=== PATIENT | male | born 1935 | race Caucasian/White ===

== ENCOUNTER → 2016-03-24 | Outpatient (CLI) | payer OTHER ==
[~2016-03-24] MED LIST: ACET-1256 PO; ASPEC81 PO; ATOR-24 PO; CHOL1TAB42 PO; CLC6 PO; CLOP1TAB15 PO; CRD200 PO; FLUT0.15 NAE; GLIM1TAB2 PO; ISOS20TA15 PO; LYR50 PO; PANT40TA PO; SPIR25TA PO; TPRSR25 PO
[2016-03-24 11:14] LABS: BLOOD UREA NITROGEN 22 mg/dl (7-18); BUN/CREATININE RATIO 10.2 (10-20); CALCIUM 9.1 mg/dl (8.5-10.1); CARBON DIOXIDE 30 mmol/L (21-32); CHLORIDE 108 mmol/L (98-107); GLUCOSE 103 mg/dl (70-99); POTASSIUM 4.5 mmol/L (3.5-5.1); SODIUM 145 mmol/L (136-145)
== END | disposition home or self-care (01) ==
LOC: C.LABBC 08:47
PROVIDERS: ATTEND Internal Medicine Geriatric Medicine
DX: R53.83 Other fatigue (principal)

== ENCOUNTER → 2016-04-02 | Outpatient (CLI) | payer OTHER ==
--- NOTE | 2016-04-02 10:54 | DIAGNOSTIC IMAGING REPORT ---
ULTRASOUND KIDNEYS AND BLADDER CLINICAL HISTORY: Chronic kidney disease. COMPARISON STUDY: Abdominal ultrasound dated 11/25/2006. TECHNIQUE: Real-time, grayscale, and color flow sonography of the kidneys and bladder is performed. Images are reviewed in the transverse and longitudinal planes. The examination is degraded by large body habitus. FINDINGS: Kidneys: The kidneys are atrophic and echogenic consistent with medical renal disease. The right kidney measures 11.0 x 5.2 x 4.9 cm and the left kidney measures 10.4 x 5.8 x 5.4 cm. There is no hydronephrosis. No shadowing renal calculi are identified. There are numerous bilateral renal cysts which measure up to 4.2 cm. There is no sonographic evidence of solid mass lesion. Trace perinephric fluid is identified bilaterally. Bladder: The bladder is partially decompressed and grossly unremarkable. A right ureteral jet was seen. IMPRESSION: 1. The kidneys are atrophic and echogenic consistent with medical renal disease. 2. There is no hydronephrosis. 3. The partially decompressed bladder is grossly normal in appearance. Electronically signed by: Lauri Tilley M.D. 04/02/2016 10:53 AM Dictated Date/Time: 04/02/2016 10:51 AM
[2016-04-02 13:14] LABS: URINE APPEARANCE CLEAR (CLEAR); URINE BILIRUBIN NEG (NEG); URINE COLOR YELLOW; URINE EPITHELIAL CELL AUTO >30 /lpf (0-5); URINE NITRITE NEG (NEG); URINE SPECIFIC GRAVITY 1.017 (1.000-1.030); UROBILINOGEN NEG (NEG); ZZUR CULT IF INDIC CLEAN CATCH NO
[2016-04-02 13:29] LABS: MANUAL MICROSCOPIC REQUIRED? NO; REVIEW REQ? NO
[2016-04-02 14:20] LABS: URINE PROTIEN/CREAT RATIO 0.1 (0-0.2); URINE TOTAL PROTEIN 19.1 mg/dl (0-11.9)
== END | disposition home or self-care (01) ==
LOC: C.ULTR 10:05
PROVIDERS: ATTEND Internal Medicine Nephrology
DX: N18.3 Chronic kidney disease, stage 3 (moderate) (principal)

== ENCOUNTER → 2016-04-12 | Outpatient (CLI) | payer OTHER ==
--- NOTE | 2016-04-14 22:52 | POLYSOMNOGRAPH REPORT ---
CLINICAL DATA: An 80-year-old male with a BMI of 31.47, referred by Dr. Sukhdev Quinn for evaluation of sleep apnea. He has a history of sleep apnea in the past, but has stopped using CPAP. He now has daytime somnolence late in the day. On the evening of 04/12/2016, home sleep apnea test was performed using a My[employer] type 3 monitor. RECORDING RESULTS: Total recording time was 10 hours. The patient's estimated sleep time and patient monitoring time was 7.9 hours. RESPIRATORY DATA: Severe sleep apnea was documented. The ADALI was 44.3. There were 96 obstructive, 201 mixed, and 2 central apneic episodes. There were 52 hypopneic episodes. The longest respiratory event recorded was 61 seconds. OXIMETRY DATA: Nocturnal hypoxemia was seen. Oxygen jerry was 79%. Mean saturation was 93%. Time below 89% was 34 minutes. HEART RATE DATA: Heart rates ranged from 47-67 beats per minute. SNORING DATA: Snoring was recorded throughout the night. IMPRESSION: Severe sleep apnea/hypopnea with an ADALI of 44.3 with nocturnal hypoxemia. RECOMMENDATIONS: The patient may benefit from a repeat sleep study with CPAP. [facility]
== END | disposition home or self-care (01) ==
LOC: C.NEUR 08:33
PROVIDERS: ATTEND Internal Medicine
DX: R40.0 Somnolence (principal); G47.36 Sleep related hypoventilation in conditions classified elsewhere

== ENCOUNTER → 2016-05-31 | Outpatient (CLI) | payer OTHER ==
[2016-05-31 12:47] LABS: ESTIMATED AVERAGE GLUCOSE 146 mg/dl; HA1C FLAG Normal (Normal)
[2016-05-31 13:57] LABS: BLOOD UREA NITROGEN 29 mg/dl (7-18); BUN/CREATININE RATIO 13.7 (10-20); CALCIUM 8.9 mg/dl (8.5-10.1); CARBON DIOXIDE 30 mmol/L (21-32); CHLORIDE 108 mmol/L (98-107); GLUCOSE 102 mg/dl (70-99); MAGNESIUM 2.4 mg/dl (1.8-2.4); PHOSPHORUS 3.1 mg/dl (2.5-4.9); POTASSIUM 4.6 mmol/L (3.5-5.1); SODIUM 144 mmol/L (136-145)
[2016-06-02 18:42] LABS: ALBUMIN 3.7 G/DL (3.8-4.8); GAMMA GLOBULIN 0.8 G/DL (0.8-1.7); TOTAL PROTEIN 6.4 G/DL (6.2-8.3)
== END | disposition home or self-care (01) ==
LOC: C.LABBC 09:21
PROVIDERS: ATTEND Internal Medicine Nephrology
DX: N18.3 Chronic kidney disease, stage 3 (moderate) (principal); I42.9 Cardiomyopathy, unspecified; I12.9 Hypertensive chronic kidney disease with stage 1 through stage 4 chronic kidney disease, or unspecified chronic kidney disease; E11.29 Type 2 diabetes mellitus with other diabetic kidney complication; E53.8 Deficiency of other specified B group vitamins

== ENCOUNTER → 2016-06-02 | Outpatient (CLI) | payer OTHER ==
--- NOTE | 2016-06-03 06:13 | PAP/PSG TECHNICIAN REPORT ---
[facility] Phone Operator Polysomnogram Report Study name: None Report date: 06/03/2016 Study date: 06/02/2016 Referring Physician: DEONNA CALVO M.D. Name: LISA REDDY Interpreting Physician: Jean Claude Burdick M.D. Date of : 1935 Phone Operator: John Dupont RPSGT. Sex: Male Age: 80 StudyType: PSG PAP Weight: 232 lbs Height: 80 years, Height 6' 0" BMI: 31.46 Medications: CLOPIDOGREL BISULFATE 75 MG, AMIODARONE HCL 200 MG, GLIMEPIRIDE 1 MG, LYRICA 50 MG, ATORVASTATIN CALCIUM 40 MG, PANTOPRAZOLE SODIUM 40 MG, ISOSORBIDE DINITRATE 20 MG, METOPROLOL SUCCINATE ER 25 MG, FLUTICASONE PROPIONATE 50 MCG/ACT, ASPIRIN 81 MG, SPIRONOLACTONE 25 MG Patient History PATIENT HAD A SLEEP STUDY AROUND 5 YEARS AGO AND WAS POSITIVE FOR AUDREY. HE WORE CPAP FOR A WHILE BUT RECENTLY QUIT WEARING IT. HE HAD A HOME SLEEP STUDY THAT SHOWED HE HAD SEVERE AUDREY. HE IS HERE TODAY FOR A CPAP TITRATION. ESS = 6 RM 7 Parameters Monitored NPSG: E1-M2, E2-M1, Fp1-M2, Fp2-M1, F3-M2, F4-M2, F4-M1, C3-M2, C4-M2, C4-M1, O1-M2, O2-M2, O2-M1, T3-M2, T4-M1, P3-M2, P4-M1, CHIN1, CHIN2, HR, EKG, Legs, PFLOW, SNOR, FLOW, CFLOW, Tidal Volume, THOR, ABDO, SpO2, PLTH, CPRESS, ETCO2 Wave, ETCO2, pH Sleep Architecture Sleep Stages Time at Lights Off 10:37:05 PM STAGES Time (min.) TST (%) Time at Lights On 5:43:05 AM Wake 141.0 -- Total Recording Time (TRT) 426.50 min. N1 14.5 5 Total Sleep Period (TSP) 408.5 min. N2 171.5 60 Total Sleep Time (TST) 285.0min. N3 27.5 10 Awake Time 141.5 min. REM 71.5 25 Wake after Sleep Onset 123.5 min. Sleep Efficiency (SE) 67 % Sleep Onset Latency (DAYA) 17.5 min. Number of Stage 1 Shifts None Awakenings 24 Stage Changes 75 Number of REM periods 5 REM 71.5 25 REM Latency 63.5 min. NREM 213.5 75 Body Position Analysis Supine Right Left Side Prone Vertical Total Sleep Time (min.) 290.2 0.0 122.0 122.04 0.0 0.0 Total Sleep Time (%) 57% 0% 43% 43 0% N/A% Total Sleep Time REM (min.) 40.0 0.0 31.5 None 0.0 0.0 Total Sleep Time NREM (min.) 123.0 0.0 90.5 None 0.0 0.0 Intermittent Wake (min.) 127.3 0.0 13.7 None 0.0 0.0 Total Sleep Period (%) 67% None None None None None Arousals Myoclonus (PLM) * Events Count Index Events Count Index Spontaneous 24 5 Events Awake (PLMW) 122 51.9 Respiratory 6 1.3 Events Asleep w/ Arousal (PLMA) 5 1.1 PLM 4 1 Events Asleep w/o Arousal (PLMS) 308 64.8 Snoring 14 3 Total Asleep 313 65.9 Total 47 10 Total 435 61 Respiratory Analysis * CA OA MA CH H RERA Total Count 21 12 2 0 76 1 111 Index 4.4 2.5 0.4 0 16.0 0 23.6 Mean Duration 20.5 27.3 29.0 0.00 20.9 19.3 21.6 Longest Duration 31.5 42.3 29.7 0.00 29.7 19.3 42.3 Respiratory Event Summary Total Supine ~Supine Right Left Prone REM NREM Apneas Count 35 30 5 N/A 5 N/A 0 35 Index 7.4 11 2 N/A 2.5 N/A 0 10 Hypopneas (4% Desat) Count 76 61 15 N/A 15 N/A 6 70 Index 16.0 22.5 7 N/A 7.4 N/A 5.0 19.7 Apneas & All Hypopneas Count 111 91 20 N/A 20 N/A 6 105 Index 23.4 34 10 N/A 10 N/A 5.0 29.5 Respiratory Events (Pellet Post Inspector+All Hyp+RERA) Count 111 92 20 N/A 20 N/A 6 105 Index 23.6 34 10 N/A 9.8 N/A 5.0 29.8 Respiratory Related Arousal Count 6 92 0 N/A 0 N/A 0 6 Index 1.3 2 0 N/A 0 N/A 0 2 Snoring Analysis Supine Right Left Prone REM NREM Total Snore duration 7.2 min Snores count 200 N/A 81 N/A 18 263 281 Snore mean duration 1.5 Sec Snores index 74 N/A 40 N/A 15.1 73.9 59.2 TST with snoring (%) 2.5% Desaturation Event Summary: Minimum %SpO2 Event Count Mean/Min/Max Duration(sec.) Desaturation Index % Time In Bed > 90 140 23.2 / 8.0 / 52.0 22.8 88.4 86 - 90 2 26.8 / 23.0 / 30.5 2.5 11.6 81 - 85 0 N/A 0.0 0.0 76 - 80 0 N/A 0.0 0.0 71 - 75 0 N/A 0.0 0.0 66 - 70 0 N/A 0.0 0.0 61 - 65 0 N/A 0.0 0.0 56 - 60 0 N/A 0.0 0.0 51 - 55 0 N/A 0.0 0.0 < 50 0 N/A 0.0 0.0 Total REM NREM Awake <50% 0.0 min. 0.0 min. 0.0 min. 0.0 min. 51 - 60% 0.0 min. 0.0 min. 0.0 min. 0.0 min. 61 - 70% 0.0 min. 0.0 min. 0.0 min. 0.0 min. 71 - 80% 0.0 min. 0.0 min. 0.0 min. 0.0 min. 81 - 90% 48.6 min. 13.9 min. 24.2 min. 10.5 min. 91 - 100% 368.7 min. 57.6 min. 189.3 min. 121.8 min. Average 93 93 94 93 Minimum SpO2 86 86 88 87 Desaturation Event Index 19.9 6.7 29.8 13.6 # Desat. Events below 89% 5 4 N/A 1 Time(%) with Saturation below 89% 1.0 0.9 0.1 0.1 Time(min.) with Saturation below 89% 4.2 3.6 0.3 0.3 Time (mins) REM (mins) NREM (mins) % of TST SpO2 Below 90% 27 6 N21 3.9 SpO2 Below 88% 3 0 0 0 Heart Rate Analysis Min (bpm) Max (bpm) Average (bpm) Awake 49 61 58 NREM 49 61 59 REM 53 60 60 Overall 49 61 59 Supplemental O2 Values Minimum O2 level: None Value Start Time End Time Phone Operator Comments Mr. Reddy slept in the right and supine positions. EKG appeared irregular at times. Leg movements noted. No bruxism noted. CPAP was initiated at +4 CMH2O and up-titrated to a level of +12 CMH2O. I switched to BIPAP due to central apnea events noted and high pressure. BIPAP was started at 12/8 and was up-titrated to 17/11 with a rate of 12 due to apneas and hypopneas. A rate of 12 was added around 4:19 am. A Resmed Mirage Quattro full face size large mask was used during titration Mr. Reddy awoke to use the restroom 1 time during the night. Mr. Reddy stated I did not sleep as well as I do when I am in my own bed. Final Pressure settings: 17/11 with a rate of 12. The final report will be interpreted and signed by a sleep physician. The completed physician report will then be placed in the patient medical record. Therapy Event: Therapy (cm H20) 4 5 6 7 9 10 11 Total Time at Pressure (min.) 76.2 32.9 65.0 9.9 13.2 9.1 8.8 TST at Pressure (min.) 37.7 32.9 57.0 9.9 13.2 9.1 8.8 # Periods 1 1 1 1 1 1 1 Sleep Onset (min.) 17.5 0.0 0.0 0.0 0.0 0.0 0.0 REM Onset (min.) N/A 4.8 0.0 N/A N/A N/A N/A Sleep Efficiency % 49 100 87 100 100 100 100 Wakefulness (%) 50.5 0.0 12.3 0.0 0.0 0.0 0.0 Wakefulness (min.) 38.5 0.0 8.0 0.0 0.0 0.0 0.0 NREM 1 (%) 3.3 0.0 3.8 0.0 0.0 0.0 0.0 NREM 1 (min.) 2.5 0.0 2.5 0.0 0.0 0.0 0.0 NREM 2 (%) 32.2 0.0 60.2 100.0 100.0 100.0 100.0 NREM 2 (min.) 24.5 0.0 39.1 9.9 13.2 9.1 8.8 NREM 3 (%) 14.0 14.7 18.5 0.0 0.0 0.0 0.0 NREM 3 (min.) 10.7 4.8 12.0 0.0 0.0 0.0 0.0 REM (%) 0.0 85.3 5.2 0.0 0.0 0.0 0.0 REM (min.) 0.0 28.1 3.4 0.0 0.0 0.0 0.0 # Arousals 7 1 8 5 0 1 1 Arousal Index 11.1 1.8 8.4 30.4 0.0 6.6 6.8 # Snore 33 15 51 37 23 10 4 Snore Index 52.6 27.3 53.7 224.8 104.6 66.1 27.3 AHI 22.3 9.1 7.4 66.8 68.2 66.1 68.3 AHI Supine 30.0 N/A 84.0 66.8 68.2 66.1 68.3 AHI Non-Supine 21.9 9.1 2.2 N/A N/A N/A N/A NREM AHI 22.3 0.0 7.8 66.8 68.2 66.1 68.3 REM AHI N/A 10.7 0.0 N/A N/A N/A N/A RDI 22.3 9.1 7.4 66.8 68.2 66.1 68.3 # Obstructive 0 0 2 3 0 0 2 # Central Ap 6 0 3 0 0 0 1 # Mixed 0 0 0 0 0 0 0 # Hypopneas 8 5 2 8 15 10 7 RERAS 0 0 0 0 0 0 0 Total Respiratory Events 14 5 7 11 15 10 10 Time Below SpO2 89.00% (min.) 0.2 1.5 0.2 0.0 0.0 0.0 0.0 Mean NREM SpO2 (%) 93 91 92 95 95 95 95 Mean REM SpO2 (%) N/A 92 93 N/A N/A N/A N/A Mean Sleep SpO2 (%) 93 92 92 95 95 95 95 Min NREM SpO2 (%) 88 89 88 89 91 90 91 Min REM SpO2 (%) N/A 86 92 N/A N/A N/A N/A Position Supine (min.) 2.0 0.0 3.6 9.9 13.2 9.1 8.8 Position Non-supine (min.) 35.7 32.9 53.4 0.0 0.0 0.0 0.0 LM Index Sleep 117.9 27.3 171.5 12.2 9.1 19.8 20.5 LM Index NREM 117.9 161.6 180.2 12.2 9.1 19.8 20.5 LM Index REM N/A 4.3 35.3 N/A N/A N/A N/A Mean Heart Rate (bpm) 60 60 60 59 59 59 59 Min Heart Rate (bpm) 59 60 57 55 56 57 57 Therapy (cm H20) 12 12/8 13/8 14/9 15/10 16/10 17/11 Total Time at Pressure (min.) 8.3 8.8 6.5 97.9 5.8 20.8 62.7 TST at Pressure (min.) 8.3 8.8 6.5 15.4 4.8 16.3 56.2 # Periods 1 1 1 1 1 1 1 Sleep Onset (min.) 0.0 0.0 0.0 0.0 0.0 0.0 0.0 REM Onset (min.) N/A N/A 1.8 0.0 N/A N/A 15.2 Sleep Efficiency % 100 100 100 15 82 78 89 Wakefulness (%) 0.0 0.0 0.0 84.2 17.2 21.7 10.4 Wakefulness (min.) 0.0 0.0 0.0 82.5 1.0 4.5 6.5 NREM 1 (%) 0.0 0.0 0.0 5.1 17.2 8.5 2.8 NREM 1 (min.) 0.0 0.0 0.0 5.0 1.0 1.8 1.7 NREM 2 (%) 100.0 100.0 27.6 2.2 65.7 69.9 43.8 NREM 2 (min.) 8.3 8.8 1.8 2.2 3.8 14.5 27.5 NREM 3 (%) 0.0 0.0 0.0 0.0 0.0 0.0 0.0 NREM 3 (min.) 0.0 0.0 0.0 0.0 0.0 0.0 0.0 REM (%) 0.0 0.0 72.4 8.4 0.0 0.0 43.0 REM (min.) 0.0 0.0 4.7 8.3 0.0 0.0 27.0 # Arousals 1 3 1 6 2 6 5 Arousal Index 7.2 20.3 9.2 23.3 24.8 22.1 5.3 # Snore 4 3 0 5 16 80 0 Snore Index 28.9 20.3 0.0 19.4 198.8 294.9 0.0 AHI 65.0 61.0 18.4 31.1 49.7 25.8 0.0 AHI Supine 65.0 61.0 18.4 31.1 49.7 25.8 0.0 AHI Non-Supine N/A N/A N/A N/A N/A N/A N/A NREM AHI 65.0 61.0 33.3 67.0 49.7 25.8 0.0 REM AHI N/A N/A 12.7 0.0 N/A N/A 0.0 RDI 65.0 61.0 18.4 31.1 49.7 29.5 0.0 # Obstructive 1 0 0 0 0 4 0 # Central Ap 6 1 0 4 0 0 0 # Mixed 1 0 0 0 0 1 0 # Hypopneas 1 8 2 4 4 2 0 RERAS 0 0 0 0 0 1 0 Total Respiratory Events 9 9 2 8 4 8 0 Time Below SpO2 89.00% (min.) 0.0 0.0 1.6 0.5 0.0 0.0 0.0 Mean NREM SpO2 (%) 95 94 95 94 97 96 95 Mean REM SpO2 (%) N/A N/A 90 90 N/A N/A 95 Mean Sleep SpO2 (%) 95 94 92 92 97 96 95 Min NREM SpO2 (%) 90 90 91 89 92 91 90 Min REM SpO2 (%) N/A N/A 86 87 N/A N/A 92 Position Supine (min.) 8.3 8.8 6.5 15.4 4.8 16.3 56.2 Position Non-supine (min.) 0.0 0.0 0.0 0.0 0.0 0.0 0.0 LM Index Sleep 7.2 13.6 18.4 19.4 37.3 55.3 24.5 LM Index NREM 7.2 13.6 0.0 33.5 37.3 55.3 24.6 LM Index REM N/A N/A 25.4 7.3 N/A N/A 24.4 Mean Heart Rate (bpm) 59 59 60 58 56 57 59 Min Heart Rate (bpm) 57 54 58 49 49 49 51
--- NOTE | 2016-06-03 12:55 | POLYSOMNOGRAPH REPORT ---
CLINICAL DATA: An 80-year-old male with BMI of 31.[address] Sukhdev Quinn for a CPAP titration study. He had sleep apnea diagnosed 5 years ago and wore CPAP for a while but then discontinued it. He had a home sleep apnea test done which showed he had severe sleep apnea and he is back for a titration study. His [place] Sleepiness Score is 6/24. SLEEP ARCHITECTURE: Total sleep period was 408.5 minutes. Total sleep time was 285 minutes divided between 213.5 minutes of non-REM sleep and 61.5 minutes of REM sleep. Sleep onset latency was 17.5 minutes. REM latency was 63.5 minutes. Sleep efficiency was reduced to 67%. Wake after sleep onset was 123.5 minutes. Sleep consisted of stage N1 5%, N2 60%, N3 10%, REM 25%. AROUSAL DATA: Forty-seven arousals were recorded for an index of 10 per hour. PLM DATA: Severe PLMD was noted. There were 313 limb movements during sleep noted for an index of 66 per hour with arousal index of 1 per hour. RESPIRATORY DATA: Moderate sleep apnea was documented. The AHI was 23.4. There were 21 central, 12 obstructive, and 2 mixed apneic episodes. The longest apneic episode was 42.3 seconds. There were 76 hypopneic episodes. The longest hypopneic episode was 29.7 seconds. OXIMETRY DATA: Mild nocturnal hypoxemia was seen. Oxygen jerry was 86%. Mean saturation was 93%. Time below 88% was 3 minutes. EKG: Heart rates ranged from 49-61 beats per minute. ENERGY TRADING ANALYST'S COMMENTS AND TREATMENT SUMMARY: The patient slept on the right and supine positions. CPAP was started with a ResMed Mirage Quattro full face size large mask. He was titrated up to 12 cm of water pressure and developed treatment onset central apneic episodes which required switch to BiPAP. Final BiPAP pressure setting was 17/11 with backup rate of 12 BPM. On this final pressure setting, the patient slept for 56 minutes with an AHI of 0. IMPRESSION: Severe complex sleep apnea with a baseline sleep study showing severe obstructive sleep apnea and the development of treatment onset central apneic episodes with initiation of CPAP. The patient did respond to BIPAP with a backup rate. However, often these patients will resolve their central apneic episodes with the use of auto CPAP. RECOMMENDATIONS: The patient could be started on BiPAP 21/01 with backup rate of 12. An alternative would be to try auto CPAP 5-20 cm water pressure with review of compliance and effectiveness data after 4-6 weeks. Clinical correlation is needed. MTDD
== END | disposition home or self-care (01) ==
LOC: C.NEUR 21:00
PROVIDERS: ATTEND Internal Medicine Geriatric Medicine
DX: G47.33 Obstructive sleep apnea (adult) (pediatric) (principal)

== ENCOUNTER → 2016-07-30 | Outpatient (CLI) | payer OTHER ==
[~2016-07-30] VITALS: Ht 182.9 cm; Wt 108.1 kg
[2016-07-30 14:24] VITALS: BP 99/58; PULSE 60; Ht 182.9 cm; Wt 108.1 kg
== END | disposition home or self-care (01) ==
LOC: C.NEUR 13:41
PROVIDERS: ATTEND Internal Medicine Pulmonary Disease
DX: G47.30 Sleep apnea, unspecified (principal)

== ENCOUNTER → 2016-09-06 | Outpatient (CLI) | payer OTHER ==
[2016-09-06 11:41] LABS: URINE APPEARANCE CLEAR (CLEAR); URINE BILIRUBIN NEG (NEG); URINE COLOR YELLOW; URINE EPITHELIAL CELL AUTO >30 /lpf (0-5); URINE NITRITE NEG (NEG); URINE SPECIFIC GRAVITY 1.019 (1.000-1.030); UROBILINOGEN NEG (NEG); ZZUR CULT IF INDIC CLEAN CATCH NO
[2016-09-06 11:43] LABS: BLOOD UREA NITROGEN 27 mg/dl (7-18); BUN/CREATININE RATIO 14.4 (10-20); CALCIUM 8.7 mg/dl (8.5-10.1); CARBON DIOXIDE 29 mmol/L (21-32); CHLORIDE 111 mmol/L (98-107); GLUCOSE 94 mg/dl (70-99); MAGNESIUM 2.3 mg/dl (1.8-2.4); POTASSIUM 4.5 mmol/L (3.5-5.1); SODIUM 145 mmol/L (136-145)
[2016-09-06 11:46] LABS: MANUAL MICROSCOPIC REQUIRED? NO; REVIEW REQ? NO
[2016-09-06 11:47] LABS: PHOSPHORUS 3.2 mg/dl (2.5-4.9)
[2016-09-06 13:53] LABS: URINE PROTIEN/CREAT RATIO 0.2 (0-0.2); URINE TOTAL PROTEIN 18.9 mg/dl (0-11.9)
[2016-09-09 15:58] LABS: ALBUMIN 3.8 G/DL (3.8-4.8); ALBUMIN % 28.43 %; ALPHA-2-GLOBULIN % 17.59 %; CREATININE UR 116 MG/DL (20-370); GAMMA GLOBULIN 0.9 G/DL (0.8-1.7); GAMMA GLOBULIN % 28.07 %; TOTAL PROTEIN 6.7 G/DL (6.2-8.3)
--- NOTE | 2016-09-14 06:45 | CODING QUERY MEDICAL NECESSITY ---
CQSUPPORTING DIAGNOSIS NEEDED A supporting diagnosis is required for the test/procedure performed on this patient in order for us to be reimbursed by the patient's insurance. Please provide a supporting diagnosis for the following test/procedure listed below next to the test name along with your signature. *If there is no additional diagnosis for this patient that would support the following test/procedure please document that below next to the test/procedure. Test(s)/Procedure(s) that require a supporting diagnosis: DOS 09/06/16 PROSTATE SPECIFIC TEST Provider Signature: Date: Thank you Amanda Solorzano [employer] Once completed, please kindly fax back to [phone] For questions please call [phone]
== END | disposition home or self-care (01) ==
LOC: C.LABBC 08:19
PROVIDERS: ATTEND Urology
DX: E11.29 Type 2 diabetes mellitus with other diabetic kidney complication (principal); N18.3 Chronic kidney disease, stage 3 (moderate); R79.9 Abnormal finding of blood chemistry, unspecified; D47.2 Monoclonal gammopathy; R39.9 Unspecified symptoms and signs involving the genitourinary system; C61 Malignant neoplasm of prostate

== ENCOUNTER → 2016-10-27 | Outpatient (CLI) | payer OTHER ==
[2016-10-27 13:25] LABS: BASO % 0.5 %; BASO ABS # 0.05 K/uL (0-0.2); COMPLETE YES; EOS % 2.5 %; HEMATOCRIT 49.1 % (42-52); IG% 0.3 %; LYMPH % 22.4 %; LYMPH ABS # 2.41 K/uL (1.2-3.4); MEAN CELL VOLUME 103.8 fL (80-100); MEAN CORPUSCULAR HGB CONC 31.8 g/dl (32-36); MEAN PLATELET VOLUME 11.1 fL (7.4-10.4); MONO % 9.5 %; NEUT % 64.8 %; PLATELET COUNT 180 K/uL (130-400); RED BLOOD COUNT 4.73 M/uL (4.7-6.1); WHITE BLOOD COUNT 10.78 K/uL (4.8-10.8)
[2016-10-27 13:51] LABS: BLOOD UREA NITROGEN 30 mg/dl (7-18); BUN/CREATININE RATIO 14.9 (10-20); CALCIUM 8.9 mg/dl (8.5-10.1); CARBON DIOXIDE 32 mmol/L (21-32); CHLORIDE 108 mmol/L (98-107); GLUCOSE 95 mg/dl (70-99); POTASSIUM 4.7 mmol/L (3.5-5.1); SODIUM 142 mmol/L (136-145)
[2016-10-27 13:52] LABS: MAGNESIUM 2.4 mg/dl (1.8-2.4); URIC ACID 6.6 mg/dl (2.6-7.2)
[2016-10-27 13:54] LABS: URINE APPEARANCE CLEAR (CLEAR); URINE BILIRUBIN NEG (NEG); URINE COLOR YELLOW; URINE NITRITE NEG (NEG); UROBILINOGEN NEG (NEG); ZZUR CULT IF INDIC CLEAN CATCH NO
[2016-10-27 13:57] LABS: ESTIMATED AVERAGE GLUCOSE 131 mg/dl; HA1C FLAG Normal (Normal)
[2016-10-27 14:02] LABS: URINE PROTIEN/CREAT RATIO 0.2 (0-0.2); URINE TOTAL PROTEIN 19.8 mg/dl (0-11.9)
[2016-10-27 14:03] LABS: CHOLESTEROL 131 mg/dl (0-200); CHOLESTEROL/HDL RATIO 2.9; HDL CHOLESTEROL 45 mg/dl; LDL CHOLESTEROL CALCULATED 65 mg/dl; PHOSPHORUS 3.2 mg/dl (2.5-4.9); TRIGLYCERIDES 107 mg/dl (0-150); VERY LOW DENSITY LIPOPROT CALC 21 mg/dl
[2016-10-27 14:04] LABS: MANUAL MICROSCOPIC REQUIRED? NO; REVIEW REQ? NO
== END | disposition home or self-care (01) ==
LOC: C.LABBC 10:01
PROVIDERS: ATTEND Internal Medicine Nephrology
DX: I12.9 Hypertensive chronic kidney disease with stage 1 through stage 4 chronic kidney disease, or unspecified chronic kidney disease (principal); N18.3 Chronic kidney disease, stage 3 (moderate); E78.5 Hyperlipidemia, unspecified; E11.22 Type 2 diabetes mellitus with diabetic chronic kidney disease; G47.30 Sleep apnea, unspecified; M10.9 Gout, unspecified; E53.8 Deficiency of other specified B group vitamins

== ENCOUNTER → 2017-01-20 | Outpatient (CLI) | payer OTHER ==
[2017-01-20 16:58] LABS: BASO % 0.5 %; BASO ABS # 0.05 K/uL (0-0.2); COMPLETE YES; EOS % 2.4 %; HEMATOCRIT 45.5 % (42-52); IG% 0.2 %; LYMPH % 21.4 %; LYMPH ABS # 2.23 K/uL (1.2-3.4); MEAN CELL VOLUME 100.9 fL (80-100); MEAN CORPUSCULAR HEMOGLOBIN 32.2 pg (25-34); MEAN CORPUSCULAR HGB CONC 31.9 g/dl (32-36); MEAN PLATELET VOLUME 11.5 fL (7.4-10.4); NEUT % 67.5 %; PLATELET COUNT 173 K/uL (130-400); RED BLOOD COUNT 4.51 M/uL (4.7-6.1); WHITE BLOOD COUNT 10.42 K/uL (4.8-10.8)
[2017-01-20 17:26] LABS: MANUAL MICROSCOPIC REQUIRED? YES; URINE APPEARANCE SL CLOUDY (CLEAR); URINE COLOR YELLOW; URINE NITRITE NEG (NEG); URINE PH 5.5 (4.5-7.5); UROBILINOGEN NEG (NEG)
[2017-01-20 17:37] LABS: REVIEW REQ? NO
[2017-01-20 17:39] LABS: URINE BILIRUBIN NEG (NEG)
[2017-01-20 17:42] LABS: URINE RBC 0-4 /hpf (0-4)
[2017-01-20 17:43] LABS: URINE BACTERIA 1+ (NEG); ZZUR CULT IF INDIC CLEAN CATCH YES
[2017-01-20 17:47] LABS: BLOOD UREA NITROGEN 28 mg/dl (7-18); BUN/CREATININE RATIO 13.3 (10-20); CALCIUM 8.7 mg/dl (8.5-10.1); CARBON DIOXIDE 28 mmol/L (21-32); CHLORIDE 104 mmol/L (98-107); CREATININE 2.14 mg/dl (0.60-1.40); GLUCOSE 135 mg/dl (70-99); MAGNESIUM 2.2 mg/dl (1.8-2.4); POTASSIUM 4.7 mmol/L (3.5-5.1); SODIUM 140 mmol/L (136-145)
[2017-01-20 17:48] LABS: PHOSPHORUS 2.8 mg/dl (2.5-4.9)
[2017-01-20 18:11] LABS: URINE PROTIEN/CREAT RATIO 0.1 (0-0.2)
== END | disposition home or self-care (01) ==
LOC: C.LABBC 13:35
PROVIDERS: ATTEND Internal Medicine Nephrology
DX: N18.4 Chronic kidney disease, stage 4 (severe) (principal); E55.9 Vitamin D deficiency, unspecified; D47.2 Monoclonal gammopathy

== ENCOUNTER → 2017-05-03 | Outpatient (CLI) | payer OTHER ==
[2017-05-03 11:02] LABS: ALBUMIN 3.5 gm/dl (3.4-5.0); BLOOD UREA NITROGEN 26 mg/dl (7-18); CALCIUM 8.9 mg/dl (8.5-10.1); CARBON DIOXIDE 33 mmol/L (21-32); CREATININE 1.98 mg/dl (0.60-1.40); GLUCOSE 100 mg/dl (70-99); POTASSIUM 4.1 mmol/L (3.5-5.1); SODIUM 143 mmol/L (136-145)
[2017-05-03 11:13] LABS: PHOSPHORUS 3.5 mg/dl (2.5-4.9)
[2017-05-03 13:01] LABS: HEMOGLOBIN A1C 6.4 % (4.5-5.6)
== END | disposition home or self-care (01) ==
LOC: C.LABBC 07:33
PROVIDERS: ATTEND Internal Medicine Geriatric Medicine
DX: N25.81 Secondary hyperparathyroidism of renal origin (principal); I48.0 Paroxysmal atrial fibrillation; E11.9 Type 2 diabetes mellitus without complications

== ENCOUNTER 2017-10-15 06:12 | Inpatient (IN) | payer OTHER ==
[~2017-10-15] VITALS: Ht 182.9 cm; Wt 103.5 kg
[2017-10-15] MEDS ORDERED: ASPI81TA28 PO (06:54)
[2017-10-15] MEDS ORDERED: AMIO200T4 PO (06:54)
[2017-10-15] MEDS ORDERED: CALC1CAP36 PO (06:56)
[2017-10-15] MEDS ORDERED: CYAN100020 PO (06:56)
[2017-10-15] MEDS ORDERED: ACET-1256 PO (06:58)
[2017-10-15] MEDS ORDERED: ALBU18002 PO (06:58)
[2017-10-15] MEDS ORDERED: CHOL200010 PO (06:59)
[2017-10-15] MEDS ORDERED: METO25TA3 PO (06:59)
[2017-10-15] MEDS ORDERED: POLY335019 PO (06:59)
[2017-10-15] MEDS ORDERED: FLUT0.15 (07:00)
--- NOTE | 2017-10-15 07:16 | EMERGENCY ROOM VISIT NOTE ---
History Report prepared by Nan: Joseph Peña Under the Supervision of: Dr. Anne-Marie Han M.D. First contact with patient: 06:38 Chief Complaint: FALL Stated Complaint: FALL History of Present Illness The patient is an 82 year old male who presents to the Emergency Room with complaints of constant back pain beginning at 1040PM last night. The patient states he was moving a chair to get into the cabinet to turn a light off. He reports he lost his balance and fell backwards. The patient notes he hit his back on the edge of the TV cabinet. He states he was able to get up, with difficulty, and go to sleep. The patient reports he went to sleep and woke up this morning. He notes he took a few Tylenol. The patient states he was not able to sit up in the bed and movement increases his discomfort, so he came to the ED. He reports he had to use the urinal at bedside to go to the restroom. The patient notes he is able to lie on his back. He states he lives in a house at [facility] with his . 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 He notes his AAA was an emergent surgery performed at [facility]. The patient states he takes Plavix daily. He denies trouble with urination, blood in urine, headache, hitting his head, loss of consciousness, nausea, vomiting, and diarrhea. Source of History: patient Onset: 1040PM last night Position: back (lower) Timing: constant Modifying Factors (Worsening): movement, other (sitting up) Associated Symptoms: No LOC, No headache, No nausea, No vomiting, No diarrhea, No urinary symptoms Review of Systems See HPI for pertinent positives & negatives. A total of 10 systems reviewed and were otherwise negative. Past Medical & Surgical Medical Problems: (1) Atrial fibrillation (2) CKD (chronic kidney disease) (3) Elevated troponin (4) Heart disease (5) Hypercholesterolemia (6) Hypertension (7) Lumbar burst fracture (8) Pacemaker (9) Prior CA and stroke (10) Prostate cancer (11) Ventricular tachyarrhythmia Surgical Problems: (1) History of abdominal aortic aneurysm repair Family History Hypertension Social History Smoking Status: Never Smoker Alcohol Use: occasionally Drug Use: none Marital Status: Housing Status: lives with significant other Occupation Status: retired Current/Historical Medications Scheduled Amiodarone Hcl (Cordarone), 200 MG PO DAILY Aspirin (Aspirin Ec), 81 MG PO DAILY Atorvastatin (Lipitor), 40 MG PO DAILY Calcitriol (Calcitriol), 0.25 MCG PO 3XWK Cholecalciferol (Vitamin D), 2,000 UNIT PO DAILY Clopidogrel (Plavix), 75 MG PO DAILY Cyanocobalamin (Vitamin B12), 1,000 MCG PO DAILY Glimepiride (Glimepiride), 0.5 MG PO QAM Metoprolol Succ (Toprol Xl) (Toprol-Xl), 25 MG PO DAILY Pantoprazole (Protonix), 40 MG PO QAM Pregabalin (Lyrica), 50 MG PO BID Scheduled PRN Acetaminophen (Tylenol), 2 TAB PO TID PRN for Pain or Fever Albuterol Sulfate (Proair Respiclick), 2 PUFFS PO QID PRN for Wheezing Colchicine (Colcrys), 0.6 MG PO BID PRN for gout Fluticasone Propionate (Nasal) (Flonase Allergy Relief), 2 SPRAYS NA DAILY PRN for Nasal Congestion Polyethylene Glycol 3350 (Miralax), 17 GM PO DAILY PRN for Constipation Allergies Coded Allergies: Penicillins (Unverified Allergy, Intermediate, HIVES, 10/15/17) Physical Exam Vital Signs Date Time Temp Pulse Resp B/P (MAP) Pulse Ox O2 Delivery O2 Flow Rate FiO2 10/15/17 10:01 60 20 146/98 95 Nasal Cannula 2.0 10/15/17 09:20 60 20 147/79 95 Nasal Cannula 2.0 10/15/17 08:43 93 Nasal Cannula 2.0 10/15/17 08:11 60 20 132/72 93 Nasal Cannula 2.0 10/15/17 07:36 94 Nasal Cannula 2.0 10/15/17 07:35 88 Room Air 10/15/17 07:30 60 20 146/67 93 Room Air 10/15/17 06:54 94 Room Air 10/15/17 06:24 60 10/15/17 06:18 36.7 60 18 152/70 93 Room Air Physical Exam Vital signs reviewed. General: Well-appearing 82-year-old male, in some discomfort. HEENT: No scleral icterus, PERRLA, neck supple. Atraumatic. Cardiovascular: Regular rate and rhythm, no extra sounds. Pulmonary: Clear to auscultation bilaterally, normal work of breathing. Abdomen: Soft, nontender, nondistended, positive bowel sounds. Musculoskeletal: Atraumatic, no significant deformity. Cervical, thoracic and lumbar spine are palpated. There is no tenderness to palpation of cervical or thoracic spine; however, there is tenderness to palpation over the mid/low lumbar spine. no step-off or deformity appreciated. Large abrasion/contusion to the mid thoracic back. Pain with any movement. Positive straight leg raise to the bilateral lower extremities. Some discomfort with pelvic rocking. Neurologic: Patient awake alert and oriented x 3, full strength in all 4 extremities. Skin: Warm, dry, no rash. No significant abrasions/laceration. Medical Decision & Procedures ER Provider Diagnostic Interpretation: Radiology results as stated below per my review and radiologist interpretation: CT SCAN OF THE THORACIC SPINE WITHOUT IV CONTRAST CLINICAL HISTORY: Trauma. Fall. Back pain. COMPARISON STUDY: Chest CT performed concurrently on 10/15/2017. TECHNIQUE: CT scan of the thoracic spine is performed from the lower cervical spine to the upper lumbar spine. Images are reviewed in the axial, sagittal, and coronal planes. IV contrast was not administered for this examination. A dose lowering technique was utilized adhering to the principles of ALARA. FINDINGS: The skeletal structures are osteopenic. There is no evidence of fracture or malalignment involving the thoracic spine. Vertebral body height and alignment are maintained. The transverse and spinous processes are intact. No lytic or blastic lesion is seen. Tiny anterior osteophytes are noted in the upper to midthoracic region. There is mild multilevel degenerative disc space narrowing. There is no evidence of large disc herniation or central canal stenosis by CT. The visualized posterior ribs appear intact. The paraspinous soft tissues are within normal limits. The heart is enlarged. There is a trace right pleural effusion. Diffuse intralobular septal thickening is noted. IMPRESSION: 1. There is no evidence of fracture or malalignment involving the thoracic spine. 2. Cardiomegaly with evidence of congestive failure. 3. Trace right pleural effusion. Dictated: 10/15/2017 8:25 AM Transcribed: 10/15/2017 8:36 AM Maude Electronically signed by: Lauri Tilley M.D. 10/15/2017 8:39 AM Dictated Date/Time: 10/15/2017 8:[address] SCAN OF THE LUMBAR SPINE WITHOUT IV CONTRAST CLINICAL HISTORY: Trauma. Fall. COMPARISON STUDY: Abdominal CT performed concurrently on 10/15/2017. TECHNIQUE: CT scan of the lumbar spine is performed from the lower thoracic spine to the sacrum. Images are reviewed in the axial, sagittal, and coronal planes. IV contrast was not administered for this examination. A dose lowering technique was utilized adhering to the principles of ALARA. FINDINGS: The skeletal structures are osteopenic. There is a burst type compression fracture involving the inferior endplate of the L3 vertebral body. There is only mild loss of height at this level. No retropulsed fragments are seen. Fracture involves the anterior and posterior cortex as well as the inferior endplate. Fracture does not extend into the posterior elements. Vertebral body height is otherwise maintained throughout the lumbar spine. Alignment is preserved. The transverse and spinous processes are intact. There is no evidence of spondylolysis. Tiny anterior osteophytes are noted throughout. The disc spaces are maintained. There is no evidence of large disc herniation or central canal stenosis involving the lumbar spine. The visualized sacrum and bony pelvis appear intact. No lytic or blastic lesion is seen. Mild paravertebral edema is seen at L3. The paraspinous soft tissues are normal in appearance. There is advanced atherosclerotic calcification of the abdominal aorta with evidence of previous graft repair. Nonspecific periaortic stranding is noted. There are numerous bilateral renal cysts. See report of abdominal CT performed concurrently for detailed intra-abdominal findings. IMPRESSION: 1. There is a burst type compression fracture of the L3 vertebral body as detailed above. No retropulsed fragments are identified. 2. No additional fracture is seen involving the lumbar spine. Dictated: 10/15/2017 8:29 AM Transcribed: 10/15/2017 8:47 AM SACHIN_[email or web address] Electronically signed by: Lauri Tilley M.D. 10/15/2017 8:49 AM Dictated Date/Time: 10/15/2017 8:[address] SCAN OF THE BRAIN WITHOUT IV CONTRAST CLINICAL HISTORY: Fall. COMPARISON STUDY: No priors. TECHNIQUE: Unenhanced axial CT scan of the brain is performed from the vertex to the skull base. A dose lowering technique was utilized adhering to the principles of ALARA. FINDINGS: Brain parenchyma: There is a 2.1 x 1.3 cm hyperdense extra-axial nodule along the left convexity. This demonstrates small calcifications and is typical in appearance for a small meningioma. There is no associated mass effect. Small chronic lacunar infarcts are noted in the caudate heads and basal ganglia. There are age-related involutional changes noting moderate patchy subcortical and periventricular microangiopathic change. There is no hemorrhage, mass effect, or evidence of acute territorial ischemia by CT criteria. Canales-white matter is preserved. No extra-axial fluid collection is seen. Ventricles, sulci, cisterns: Prominent secondary to involutional change. Intracranial vasculature: There is atherosclerotic calcification of the cavernous carotid and vertebral arteries. Calvarium: The skeletal structures are osteopenic. There is no depressed calvarial fracture. Sinuses and mastoids: Trace mucosal thickening is seen in the left maxillary antrum, the left frontal sinus, and the ethmoid sinuses. The remaining visualized paranasal sinuses are clear. The mastoid air cells are well pneumatized. Orbits: The bony orbits are grossly intact. There are bilateral ocular lens implants. IMPRESSION: 1. There is no hemorrhage, mass effect, or evidence of acute territorial ischemia by CT criteria. 2. A 2.1 cm extra-axial nodule along the left frontal convexity is typical in appearance for a meningioma. There is no associated mass effect. Electronically signed by: Lauri Tilley M.D. 10/15/2017 7:55 AM Dictated Date/Time: 10/15/2017 7:[address] SCAN OF THE CHEST, ABDOMEN, AND PELVIS WITHOUT IV CONTRAST CLINICAL HISTORY: Trauma. Fall. COMPARISON STUDY: Chest x-ray dated 12/29/2015. Renal ultrasound dated 04/02/2016. TECHNIQUE: CT scan of the chest, abdomen, and pelvis was performed from the thoracic inlet to the proximal femora. Images are reviewed in the axial, sagittal, and coronal planes. IV contrast was not administered. Note that the examination was performed and significantly suboptimal fashion without IV contrast given the history of trauma. A dose lowering technique was utilized adhering to the principles of ALARA. FINDINGS: CHEST: Thyroid: Imaged portions of the thyroid gland are normal in size and attenuation. Thoracic aorta: There is advanced atherosclerotic calcification of the thoracic aorta, which is normal in caliber and demonstrates standard 3-vessel arch anatomy. Heart: A cardiac AICD is present in the right chest wall. The heart is enlarged and without pericardial effusion. The coronary arteries are densely calcified. Lungs and pleural spaces: Evaluation of the lung parenchyma is degraded by motion artifact. There is diffuse intralobular septal thickening and mild diffuse peribronchial thickening. A trace right pleural effusion is identified. No airspace consolidation is seen typical for pneumonia and there is no pneumothorax. The trachea and central airways are clear. Mediastinum: There is no mediastinal hematoma or lymphadenopathy. Carlie: Normal assessed without IV contrast. Axillae: There is no axillary lymphadenopathy. Bony thorax: The skeletal structures are osteopenic. The bony thorax appears intact. There are chronic-appearing/healed bilateral anterior rib fractures. No lytic or blastic lesions are identified. ABDOMEN AND PELVIS: Liver: The unenhanced liver is normal in size, contour, and attenuation. There is no intrahepatic or ductal dilatation. Gallbladder: Unremarkable. Spleen: Normal in size and attenuation. Pancreas: The unenhanced pancreas is atrophic and grossly unremarkable. Adrenal glands: Unremarkable. Kidneys: The unenhanced kidneys are atrophic and without hydronephrosis. No renal calculi are identified. Numerous bilateral renal cysts measure up to 4.3 cm. A complex/hemorrhagic cyst arising from the interpolar right kidney measures 11 mm. Abdominal vasculature: There is moderate to advanced atherosclerotic calcification of the abdominal aorta with evidence of previous graft repair. The abdominal aorta is normal in caliber. Nonspecific periaortic stranding is identified. There is no periaortic/retroperitoneal hemorrhage. Bowel: There is moderate to advanced colonic diverticulosis without CT evidence of acute diverticulitis. Moderate colonic fecal retention is observed. No bowel obstruction is seen. The appendix is well-visualized and normal. Peritoneum: There is no intraperitoneal free air or abdominal ascites. Lymphadenopathy: None. Pelvic viscera: The bladder is normal as visualized. The prostate gland is atrophic and contains brachytherapy seeds. Skeletal structures: The skeletal structures are osteopenic. There is a mild burst type compression fracture of the L3 vertebral body. Fracture involves the anterior and posterior cortex, as well as the inferior endplate. No retropulsed fragments are identified. Mild paravertebral edema is seen at this level. No additional fracture is seen involving the lumbar spine or the bony pelvis. No lytic or blastic lesions are seen. IMPRESSION: 1. There is a burst type fracture of the L3 vertebral body. Fracture extends through the anterior and posterior cortex of the vertebral body and also involves the inferior endplate. No retropulsed fragments are identified. 2. No additional acute fracture is clearly identified. Bilateral anterior rib fractures are likely chronic. Correlate for point tenderness. 3. Cardiomegaly and AICD. There is diffuse intralobular septal thickening suggesting congestive failure. 4. There is a trace right pleural effusion. 5. No airspace consolidation or pneumothorax is seen. 6. There is no evidence of solid organ injury in the abdomen or pelvis on this unenhanced examination. 7. There is moderate to advanced atherosclerotic calcification of the abdominal aorta with evidence of previous graft repair. No aneurysm is seen. 8. There is mild nonspecific stranding identified around the abdominal aorta. This may be related to previous surgery. An inflammatory aortitis is considered less likely but could also have this appearance. Correlation within the prior outside imaging studies would be helpful for comparison purposes. No retroperitoneal hemorrhage or periaortic blood is seen. 9. Moderate to advanced colonic diverticulosis without CT evidence of acute diverticulitis. 10. Additional findings as above. Electronically signed by: Lauri Tilley M.D. 10/15/2017 8:24 AM Dictated Date/Time: 10/15/2017 8:[address] SCAN OF THE CERVICAL SPINE CLINICAL HISTORY: Fall. COMPARISON STUDY: No priors. TECHNIQUE: CT scan of the cervical spine is performed from the skull base to the upper thoracic spine. Images are reviewed in the axial, sagittal, and coronal planes. IV contrast was not administered for this examination. A dose lowering technique was utilized adhering to the principles of ALARA. CT DOSE: 4298.64 mGy.cm FINDINGS: Skeletal structures: The skeletal structures are osteopenic. There is no evidence of fracture or subluxation involving the cervical spine. Vertebral body height is maintained. There is minimal anterolisthesis at C3-C4 and C4-C5. Alignment is otherwise preserved. Anterior osteophytes are seen in the lower cervical spine. There is straightening of the cervical lordosis. The odontoid process and lateral masses are intact. The atlantoaxial articulation is preserved noting advanced productive degenerative change. The spinous processes appear intact. There is moderate to advanced multilevel cervical spondylosis. Uncovertebral and facet arthropathy contribute to neural foraminal stenosis at most levels. Intervertebral discs: Mild disc space narrowing is seen at C5-C6 and C6-C7. The remaining disc spaces are well maintained. Central canal: Posterior disc osteophyte complexes at C5-C6 and C6-C7 likely contribute to acquired compromise of the central canal. Soft tissues: The prevertebral and paraspinous soft tissues are within normal limits. There is advanced atherosclerotic calcification of the carotid bulbs. Pacemaker leads are noted at the right thoracic inlet. Calvarium: The visualized calvarium at the skull base appears intact. Brain parenchyma: Partially visualized brain parenchyma the skull base is within normal limits noting age-related involutional change. Sinuses and mastoids: The visualized paranasal sinuses are clear. The mastoid air cells are well pneumatized. Lung apices: Clear as visualized. IMPRESSION: 1. There is no evidence of fracture or subluxation involving the cervical spine. 2. Osteopenia and spondylotic change as above. Electronically signed by: Lauri Tilley M.D. 10/15/2017 8:00 AM Dictated Date/Time: 10/15/2017 7:56 AM Laboratory Results Test 10/15/17 07:25 Prothrombin Time 10.7 SECONDS (9.0-12.0) Prothromb Time International Ratio 1.0 (0.9-1.1) Activated Partial Thromboplast Time 25.4 SECONDS (21.0-31.0) Partial Thromboplastin Ratio 1.0 Total Bilirubin 0.6 mg/dl (0.2-1) Direct Bilirubin 0.2 mg/dl (0-0.2) Aspartate Amino Transf (AST/SGOT) 27 U/L (15-37) Alanine Aminotransferase (ALT/SGPT) 25 U/L (12-78) Alkaline Phosphatase 139 U/L (45-117) Total Protein 7.1 gm/dl (6.4-8.2) Albumin 3.4 gm/dl (3.4-5.0) Laboratory results per my review. Medications Administered Medications (Trade) Dose Ordered Sig/Caitie Route Start Time Stop Time Status Last Admin Dose Admin Fentanyl Citrate (Fentanyl Inj) 50 mcg NOW STAT IV 10/15/17 07:22 10/15/17 07:23 DC 10/15/17 07:30 50 MCG Ondansetron HCl (Zofran Inj) 4 mg NOW STAT IV 10/15/17 07:22 10/15/17 07:23 DC 10/15/17 07:29 4 MG Sodium Chloride 1,000 ml @ 80 mls/hr [id number] STAT IV 10/15/17 07:22 10/15/17 11:18 DC 10/15/17 07:29 80 MLS/HR Aspirin (Aspirin Chew) 324 mg NOW STAT PO 10/15/17 08:04 10/15/17 08:05 DC 10/15/17 08:11 324 MG ECG Per My Interpretation Indication: other (trauma) Rate (beats per minute): 60 Rhythm: other (atrially paced) Findings: RBBB, left axis deviation, other (previous inferior infarct) ED Course 0650: Past medical records reviewed. The patient was evaluated in room B09. A complete history and physical examination was performed. 0823: I discussed the patient's case with Dr. Peguero, Orthopedic Surgery. He suggests the patient be bed ridden on his back. 0827: I discussed the patient's case with Dr. Kat, [facility] Hospitalist. The patient will be evaluated for further management and care. 0846: Upon reevaluation, the patient is resting comfortably. I discussed laboratory and radiographic results with him. He verbalized agreement of the treatment plan. The patient will be evaluated for further management and care. Medical Decision Differential diagnoses include: Intracranial injury, cervical spine injury, intrathoracic injury, intra- abdominal injury, musculoskeletal injury. This patient was evaluated and appeared to be in no significant distress. IV access was obtained and laboratory work was drawn. The patient was placed on bus monitor be in an atrially paced rhythm. Patient's vital signs have remained stable. He was given IV fentanyl and Zofran for his discomforts. CT imaging reveals a burst fracture of L3. The remainder of the imaging studies are negative for acute traumatic findings. There are several old rib injuries identified. I did discuss the case with Dr. Peguero of orthopedic spine. He feels the patient is stable for bed rest and has requested hospitalization until a brace can be made for the patient. Patient and are made aware of the plan and agree. The hospitalist has been consulted for admission and further management. Medication Reconcilliation Current Medication List: was personally reviewed by me Blood Pressure Screening Patient's blood pressure: Elevated blood pressure Blood pressure disposition: Referred to PCP Consults Time Called: 817 Consulting Physician: Dr. Peguero, Orthopedic Surgery Returned Call: [phone] I discussed the patient's case with Dr. Peguero, Orthopedic Surgery. He suggests the patient be bed ridden on his back. Additional Consults: Time Called: 824 Consulted Physician: Dr. Kat [facility] Hospitalist Returned Call: [phone] Additional Comments: I discussed the patient's case with Dr. Kat [facility] Hospitalist. The patient will be evaluated for further management and care. Impression Primary Impression: Lumbar burst fracture Additional Impression: Fall Scribe Attestation The scribe's documentation has been prepared under my direction and personally reviewed by me in its entirety. I confirm that the note above accurately reflects all work, treatment, procedures, and medical decision making performed by me. Departure Information Dispostion Being Evaluated By Hospitalist Referrals No Doctor, Assigned (PCP) Patient Instructions My [facility] Problem Qualifiers Primary Impression: Lumbar burst fracture Encounter type: initial encounter Fracture type: closed Qualified Codes: S32.001A - Stable burst fracture of unspecified lumbar vertebra, initial encounter for closed fracture Additional Impression: Fall Encounter type: initial encounter Qualified Codes: W19.XXXA - Unspecified fall, initial encounter
[2017-10-15] MEDS ORDERED: SODIUM CHLORIDE 0.9% 1000ML 1,000 ML IV STA (07:22)
[2017-10-15] MEDS ORDERED: ONDANSETRON INJ 2 MG/ML 2 ML VIAL IV STA (07:22)
[2017-10-15] MEDS ORDERED: FENTANYL CITRATE INJ 50 MCG/1 ML 2 ML VIAL IV STA (07:22)
[2017-10-15 07:32] LABS: BASO % 0.2 %; BASO ABS # 0.03 K/uL (0-0.2); EOS % 2.1 %; EOS ABS # 0.26 K/uL (0-0.5); HEMATOCRIT 44.6 % (42-52); HEMOGLOBIN 14.9 g/dL (14.0-18.0); IG# 0.04 K/uL (0.00-0.02); LYMPH % 12.2 %; LYMPH ABS # 1.48 K/uL (1.2-3.4); MEAN CELL VOLUME 98.9 fL (80-100); MEAN CORPUSCULAR HGB CONC 33.4 g/dl (32-36); MEAN PLATELET VOLUME 10.5 fL (7.4-10.4); MONO % 9.7 %; MONO ABS # 1.18 K/uL (0.11-0.59); NEUT % 75.5 %; NEUT ABS # 9.13 K/uL (1.4-6.5); PLATELET COUNT 154 K/uL (130-400); RED CELL DISTRIBUTION WIDTH CV 15.1 % (11.5-14.5); RED CELL DISTRIBUTION WIDTH SD 54.4 fL (36.4-46.3); WHITE BLOOD COUNT 12.12 K/uL (4.8-10.8)
--- NOTE | 2017-10-15 07:57 | DIAGNOSTIC IMAGING REPORT ---
CT SCAN OF THE BRAIN WITHOUT IV CONTRAST CLINICAL HISTORY: Fall. COMPARISON STUDY: No priors. TECHNIQUE: Unenhanced axial CT scan of the brain is performed from the vertex to the skull base. A dose lowering technique was utilized adhering to the principles of ALARA. FINDINGS: Brain parenchyma: There is a 2.1 x 1.3 cm hyperdense extra-axial nodule along the left convexity. This demonstrates small calcifications and is typical in appearance for a small meningioma. There is no associated mass effect. Small chronic lacunar infarcts are noted in the caudate heads and basal ganglia. There are age-related involutional changes noting moderate patchy subcortical and periventricular microangiopathic change. There is no hemorrhage, mass effect, or evidence of acute territorial ischemia by CT criteria. Canales-white matter is preserved. No extra-axial fluid collection is seen. Ventricles, sulci, cisterns: Prominent secondary to involutional change. Intracranial vasculature: There is atherosclerotic calcification of the cavernous carotid and vertebral arteries. Calvarium: The skeletal structures are osteopenic. There is no depressed calvarial fracture. Sinuses and mastoids: Trace mucosal thickening is seen in the left maxillary antrum, the left frontal sinus, and the ethmoid sinuses. The remaining visualized paranasal sinuses are clear. The mastoid air cells are well pneumatized. Orbits: The bony orbits are grossly intact. There are bilateral ocular lens implants. IMPRESSION: 1. There is no hemorrhage, mass effect, or evidence of acute territorial ischemia by CT criteria. 2. A 2.1 cm extra-axial nodule along the left frontal convexity is typical in appearance for a meningioma. There is no associated mass effect. Electronically signed by: Lauri Tilley M.D. 10/15/2017 7:55 AM Dictated Date/Time: 10/15/2017 7:52 AM
[2017-10-15 07:59] LABS: ALBUMIN 3.4 gm/dl (3.4-5.0); CALCIUM 8.5 mg/dl (8.5-10.1); CREATININE 1.77 mg/dl (0.60-1.40); POTASSIUM 4.5 mmol/L (3.5-5.1); TOTAL PROTEIN 7.1 gm/dl (6.4-8.2)
--- NOTE | 2017-10-15 08:01 | DIAGNOSTIC IMAGING REPORT ---
CT SCAN OF THE CERVICAL SPINE CLINICAL HISTORY: Fall. COMPARISON STUDY: No priors. TECHNIQUE: CT scan of the cervical spine is performed from the skull base to the upper thoracic spine. Images are reviewed in the axial, sagittal, and coronal planes. IV contrast was not administered for this examination. A dose lowering technique was utilized adhering to the principles of ALARA. CT DOSE: 4298.64 mGy.cm FINDINGS: Skeletal structures: The skeletal structures are osteopenic. There is no evidence of fracture or subluxation involving the cervical spine. Vertebral body height is maintained. There is minimal anterolisthesis at C3-C4 and C4-C5. Alignment is otherwise preserved. Anterior osteophytes are seen in the lower cervical spine. There is straightening of the cervical lordosis. The odontoid process and lateral masses are intact. The atlantoaxial articulation is preserved noting advanced productive degenerative change. The spinous processes appear intact. There is moderate to advanced multilevel cervical spondylosis. Uncovertebral and facet arthropathy contribute to neural foraminal stenosis at most levels. Intervertebral discs: Mild disc space narrowing is seen at C5-C6 and C6-C7. The remaining disc spaces are well maintained. Central canal: Posterior disc osteophyte complexes at C5-C6 and C6-C7 likely contribute to acquired compromise of the central canal. Soft tissues: The prevertebral and paraspinous soft tissues are within normal limits. There is advanced atherosclerotic calcification of the carotid bulbs. Pacemaker leads are noted at the right thoracic inlet. Calvarium: The visualized calvarium at the skull base appears intact. Brain parenchyma: Partially visualized brain parenchyma the skull base is within normal limits noting age-related involutional change. Sinuses and mastoids: The visualized paranasal sinuses are clear. The mastoid air cells are well pneumatized. Lung apices: Clear as visualized. IMPRESSION: 1. There is no evidence of fracture or subluxation involving the cervical spine. 2. Osteopenia and spondylotic change as above. Electronically signed by: Lauri Tilley M.D. 10/15/2017 8:00 AM Dictated Date/Time: 10/15/2017 7:56 AM
[2017-10-15] MEDS ORDERED: ASPIRIN 81 MG CHEW PO STA (08:04)
--- NOTE | 2017-10-15 08:25 | DIAGNOSTIC IMAGING REPORT ---
CT SCAN OF THE CHEST, ABDOMEN, AND PELVIS WITHOUT IV CONTRAST CLINICAL HISTORY: Trauma. Fall. COMPARISON STUDY: Chest x-ray dated 12/29/2015. Renal ultrasound dated 04/02/2016. TECHNIQUE: CT scan of the chest, abdomen, and pelvis was performed from the thoracic inlet to the proximal femora. Images are reviewed in the axial, sagittal, and coronal planes. IV contrast was not administered. Note that the examination was performed and significantly suboptimal fashion without IV contrast given the history of trauma. A dose lowering technique was utilized adhering to the principles of ALARA. FINDINGS: CHEST: Thyroid: Imaged portions of the thyroid gland are normal in size and attenuation. Thoracic aorta: There is advanced atherosclerotic calcification of the thoracic aorta, which is normal in caliber and demonstrates standard 3-vessel arch anatomy. Heart: A cardiac AICD is present in the right chest wall. The heart is enlarged and without pericardial effusion. The coronary arteries are densely calcified. Lungs and pleural spaces: Evaluation of the lung parenchyma is degraded by motion artifact. There is diffuse intralobular septal thickening and mild diffuse peribronchial thickening. A trace right pleural effusion is identified. No airspace consolidation is seen typical for pneumonia and there is no pneumothorax. The trachea and central airways are clear. Mediastinum: There is no mediastinal hematoma or lymphadenopathy. Carlie: Normal assessed without IV contrast. Axillae: There is no axillary lymphadenopathy. Bony thorax: The skeletal structures are osteopenic. The bony thorax appears intact. There are chronic-appearing/healed bilateral anterior rib fractures. No lytic or blastic lesions are identified. ABDOMEN AND PELVIS: Liver: The unenhanced liver is normal in size, contour, and attenuation. There is no intrahepatic or ductal dilatation. Gallbladder: Unremarkable. Spleen: Normal in size and attenuation. Pancreas: The unenhanced pancreas is atrophic and grossly unremarkable. Adrenal glands: Unremarkable. Kidneys: The unenhanced kidneys are atrophic and without hydronephrosis. No renal calculi are identified. Numerous bilateral renal cysts measure up to 4.3 cm. A complex/hemorrhagic cyst arising from the interpolar right kidney measures 11 mm. Abdominal vasculature: There is moderate to advanced atherosclerotic calcification of the abdominal aorta with evidence of previous graft repair. The abdominal aorta is normal in caliber. Nonspecific periaortic stranding is identified. There is no periaortic/retroperitoneal hemorrhage. Bowel: There is moderate to advanced colonic diverticulosis without CT evidence of acute diverticulitis. Moderate colonic fecal retention is observed. No bowel obstruction is seen. The appendix is well-visualized and normal. Peritoneum: There is no intraperitoneal free air or abdominal ascites. Lymphadenopathy: None. Pelvic viscera: The bladder is normal as visualized. The prostate gland is atrophic and contains brachytherapy seeds. Skeletal structures: The skeletal structures are osteopenic. There is a mild burst type compression fracture of the L3 vertebral body. Fracture involves the anterior and posterior cortex, as well as the inferior endplate. No retropulsed fragments are identified. Mild paravertebral edema is seen at this level. No additional fracture is seen involving the lumbar spine or the bony pelvis. No lytic or blastic lesions are seen. IMPRESSION: 1. There is a burst type fracture of the L3 vertebral body. Fracture extends through the anterior and posterior cortex of the vertebral body and also involves the inferior endplate. No retropulsed fragments are identified. 2. No additional acute fracture is clearly identified. Bilateral anterior rib fractures are likely chronic. Correlate for point tenderness. 3. Cardiomegaly and AICD. There is diffuse intralobular septal thickening suggesting congestive failure. 4. There is a trace right pleural effusion. 5. No airspace consolidation or pneumothorax is seen. 6. There is no evidence of solid organ injury in the abdomen or pelvis on this unenhanced examination. 7. There is moderate to advanced atherosclerotic calcification of the abdominal aorta with evidence of previous graft repair. No aneurysm is seen. 8. There is mild nonspecific stranding identified around the abdominal aorta. This may be related to previous surgery. An inflammatory aortitis is considered less likely but could also have this appearance. Correlation within the prior outside imaging studies would be helpful for comparison purposes. No retroperitoneal hemorrhage or periaortic blood is seen. 9. Moderate to advanced colonic diverticulosis without CT evidence of acute diverticulitis. 10. Additional findings as above. Electronically signed by: Lauri Tilley M.D. 10/15/2017 8:24 AM Dictated Date/Time: 10/15/2017 8:01 AM
--- NOTE | 2017-10-15 08:37 | DIAGNOSTIC IMAGING REPORT ---
CT SCAN OF THE THORACIC SPINE WITHOUT IV CONTRAST CLINICAL HISTORY: Trauma. Fall. Back pain. COMPARISON STUDY: Chest CT performed concurrently on 10/15/2017. TECHNIQUE: CT scan of the thoracic spine is performed from the lower cervical spine to the upper lumbar spine. Images are reviewed in the axial, sagittal, and coronal planes. IV contrast was not administered for this examination. A dose lowering technique was utilized adhering to the principles of ALARA. FINDINGS: The skeletal structures are osteopenic. There is no evidence of fracture or malalignment involving the thoracic spine. Vertebral body height and alignment are maintained. The transverse and spinous processes are intact. No lytic or blastic lesion is seen. Tiny anterior osteophytes are noted in the upper to midthoracic region. There is mild multilevel degenerative disc space narrowing. There is no evidence of large disc herniation or central canal stenosis by CT. The visualized posterior ribs appear intact. The paraspinous soft tissues are within normal limits. The heart is enlarged. There is a trace right pleural effusion. Diffuse intralobular septal thickening is noted. IMPRESSION: 1. There is no evidence of fracture or malalignment involving the thoracic spine. 2. Cardiomegaly with evidence of congestive failure. 3. Trace right pleural effusion. Dictated: 10/15/2017 8:25 AM Transcribed: 10/15/2017 8:36 AM S[facility]_Roshan Electronically signed by: Lauri Tilley M.D. 10/15/2017 8:39 AM Dictated Date/Time: 10/15/2017 8:25 AM
[2017-10-15 08:43] VITALS: O2SAT 93; Ht 182.9 cm; Wt 103.5 kg
--- NOTE | 2017-10-15 08:47 | DIAGNOSTIC IMAGING REPORT ---
CT SCAN OF THE LUMBAR SPINE WITHOUT IV CONTRAST CLINICAL HISTORY: Trauma. Fall. COMPARISON STUDY: Abdominal CT performed concurrently on 10/15/2017. TECHNIQUE: CT scan of the lumbar spine is performed from the lower thoracic spine to the sacrum. Images are reviewed in the axial, sagittal, and coronal planes. IV contrast was not administered for this examination. A dose lowering technique was utilized adhering to the principles of ALARA. FINDINGS: The skeletal structures are osteopenic. There is a burst type compression fracture involving the inferior endplate of the L3 vertebral body. There is only mild loss of height at this level. No retropulsed fragments are seen. Fracture involves the anterior and posterior cortex as well as the inferior endplate. Fracture does not extend into the posterior elements. Vertebral body height is otherwise maintained throughout the lumbar spine. Alignment is preserved. The transverse and spinous processes are intact. There is no evidence of spondylolysis. Tiny anterior osteophytes are noted throughout. The disc spaces are maintained. There is no evidence of large disc herniation or central canal stenosis involving the lumbar spine. The visualized sacrum and bony pelvis appear intact. No lytic or blastic lesion is seen. Mild paravertebral edema is seen at L3. The paraspinous soft tissues are normal in appearance. There is advanced atherosclerotic calcification of the abdominal aorta with evidence of previous graft repair. Nonspecific periaortic stranding is noted. There are numerous bilateral renal cysts. See report of abdominal CT performed concurrently for detailed intra-abdominal findings. IMPRESSION: 1. There is a burst type compression fracture of the L3 vertebral body as detailed above. No retropulsed fragments are identified. 2. No additional fracture is seen involving the lumbar spine. Dictated: 10/15/2017 8:29 AM Transcribed: 10/15/2017 8:47 AM [facility]_Roshan Electronically signed by: Lauri Tilley M.D. 10/15/2017 8:49 AM Dictated Date/Time: 10/15/2017 8:29 AM
--- NOTE | 2017-10-15 09:19 | History and Physical ---
History & Physical Date & Time of Service: Oct 15, 2017 at 09:18 Chief Complaint: FALL Primary Care Physician: Sukhdev Quinn M.D. History of Present Illness Source: patient, family This patient is an 82-year-old male with a history of V. tach cardiac arrest, pacemaker in situ, CAD with ischemic cardiomyopathy, chronic combined systolic and diastolic CHF, PAF, aortic stenosis, CVA, CKD stage III, h/o AAA repair, DM 2, HTN, HL, prostate cancer, gout, peripheral neuropathy with frequent falls, seasonal allergies, GERD, AUDREY, and periodic limb movement disorder, who presents to the ER after sustaining a fall on his back last evening around 5. He reports lifting a chair and starting to walk backwards to move it and he lost his balance, falling backwards and landing his mid back on the ledge of a TV stand about 18 inches off the ground. His was able to help him up and he walked to go to bed. When he tried to get out of bed this morning he had severe pain. He took Tylenol and then his called the ambulance. He was CAT scan from head through pelvis and found to have an L3 burst fracture without compromise of the canal. He has no radicular symptoms. He denies pain anywhere else except in his lower back. He was also found to have an elevated troponin at 0.5, but denies chest pain or shortness of breath. His ECG showed possible pacemaker failure and with a widened QRS. Pacer interrogation was attempted in the ER and they were unable to complete this. He denies having any problems with his pacer/defibrillator since he was here in 2016 after it went off several times. He was mildly hypoxic in the ER and placed on supplemental O2. He denies headache, other joint pains, abdominal pain, constipation or diarrhea, no GI bleeding, no nausea or vomiting. He will be admitted for elevated troponin and intractable back pain with an L3 traumatic burst fracture. Past Medical/Surgical History PMH: Ventricular tachyarrhythmia Cardiac arrest Pacemaker in situ Elevated Troponin Coronary Artery Disease Ischemic cardiomyopathy Chronic systolic and diastolic CHF Paroxysmal atrial fibrillation History of CVA Chronic Kidney Disease Stage III Diabetes Mellitus type II Hypertension Hyperlipidemia History of prostate CA History of AAA repair Aortic Stenosis-moderate GERD Seasonal Allergies History of frequent falls peripheral neuropathy Vitamin D deficiency Gout AUDREY-supposed to be on BiPAP but declined PSH: History of abdominal aortic aneurysm repair Right knee arthroscopically Left distal index finger partial amputation-traumatic Pacemaker placement on the left and subsequent removal Pacemaker placement on the right Tonsillectomy Family History Hypertension Social History Smoking Status: Former Smoker (History of [id number] smoking) Alcohol Use: occasionally (1 drink per week) Drug Use: none Marital Status: Housing status: lives with significant other (In the independent portion at [facility]) Occupational Status: retired Immunizations History of Tetanus Vaccine?: Yes History of Pneumococcal: No History of Hepatitis B Vaccine: No Allergies Coded Allergies: Penicillins (Unverified Allergy, Intermediate, HIVES, 10/15/17) Home Medications Scheduled Amiodarone Hcl (Cordarone), 200 MG PO DAILY Aspirin (Aspirin Ec), 81 MG PO DAILY Atorvastatin (Lipitor), 40 MG PO DAILY Calcitriol (Calcitriol), 0.25 MCG PO 3XWK Cholecalciferol (Vitamin D), 2,000 UNIT PO DAILY Clopidogrel (Plavix), 75 MG PO DAILY Cyanocobalamin (Vitamin B12), 1,000 MCG PO DAILY Glimepiride (Glimepiride), 0.5 MG PO QAM Metoprolol Succ (Toprol Xl) (Toprol-Xl), 25 MG PO DAILY Pantoprazole (Protonix), 40 MG PO QAM Pregabalin (Lyrica), 50 MG PO BID Scheduled PRN Acetaminophen (Tylenol), 2 TAB PO TID PRN for Pain or Fever Albuterol Sulfate (Proair Respiclick), 2 PUFFS PO QID PRN for Wheezing Colchicine (Colcrys), 0.6 MG PO BID PRN for gout Fluticasone Propionate (Nasal) (Flonase Allergy Relief), 2 SPRAYS NA DAILY PRN for Nasal Congestion Polyethylene Glycol 3350 (Miralax), 17 GM PO DAILY PRN for Constipation Review of Systems Constitutional: No fever, No chills, No sweats Eyes: No problem reported ENT: No problem reported Respiratory: No problem reported Cardiovascular: No problem reported Abdomen: No problem reported Musculoskeletal: + joint pain (As per HPI) Genitourinary - Male: No problem reported Neurologic: + numbness/tingling (Chronic peripheral neuropathy), + balance problems (With frequent falls) Psychiatric: No problem reported Endocrine: No problem reported Hematologic / Lymphatic: No problem reported Integumentary: No problem reported Allergic / Immunologic: No problem reported Physical Exam Vital Signs Date Time Temp Pulse Resp B/P (MAP) Pulse Ox O2 Delivery O2 Flow Rate FiO2 10/15/17 08:43 93 Nasal Cannula 2.0 10/15/17 08:11 60 20 132/72 93 Nasal Cannula 2.0 10/15/17 07:36 94 Nasal Cannula 2.0 10/15/17 07:35 88 Room Air 10/15/17 07:30 60 20 146/67 93 Room Air 10/15/17 06:54 94 Room Air 10/15/17 06:24 60 10/15/17 06:18 36.7 60 18 152/70 93 Room Air General Appearance: WD/WN, no apparent distress Head: normocephalic, atraumatic Eyes: normal inspection, PERRL, EOMI, sclerae normal ENT: hearing grossly normal, pharynx normal Neck: supple, no adenopathy, no JVD, trachea midline Respiratory/Chest: lungs clear, normal breath sounds, no respiratory distress, no accessory muscle use Cardiovascular: regular rate, rhythm, no murmur, + pertinent finding (1+ pedal pulses bilaterally, trace pitting edema in the legs bilaterally) Abdomen/GI: normal bowel sounds, non tender, soft, no organomegaly, + pertinent finding (Midline incisional scar well-healed) Back: + pertinent finding (Positive large abrasion of skin across the mid back with no active bleeding; positive tenderness palpation in the lumbar spine without step-off) Extremities/Musculoskelatal: no calf tenderness, normal range of motion, non- tender (Except for back as above) Neurologic/Psych: no motor/sensory deficits, alert, normal mood/affect, oriented x 3 Skin: normal color, warm/dry, no rash (Except abrasion on back as above) Lymphatic: no adenopathy Diagnostics Laboratory Results Results Past 24 Hours Test 10/15/17 07:25 Range/Units White Blood Count 12.12 4.8-10.8 K/uL Red Blood Count 4.51 4.7-6.1 M/uL Hemoglobin 14.9 14.0-18.0 g/dL Hematocrit 44.6 42-52 % Mean Corpuscular Volume 98.9 80-100 fL Mean Corpuscular Hemoglobin 33.0 25-34 pg Mean Corpuscular Hemoglobin Concent 33.4 32-36 g/dl Platelet Count 154 130-400 K/uL Mean Platelet Volume 10.5 7.4-10.4 fL Neutrophils (%) (Auto) 75.5 % Lymphocytes (%) (Auto) 12.2 % Monocytes (%) (Auto) 9.7 % Eosinophils (%) (Auto) 2.1 % Basophils (%) (Auto) 0.2 % Neutrophils # (Auto) 9.13 1.4-6.5 K/uL Lymphocytes # (Auto) 1.48 1.2-3.4 K/uL Monocytes # (Auto) 1.18 0.11-0.59 K/uL Eosinophils # (Auto) 0.26 0-0.5 K/uL Basophils # (Auto) 0.03 0-0.2 K/uL RDW Standard Deviation 54.4 36.4-46.3 fL RDW Coefficient of Variation 15.1 11.5-14.5 % Immature Granulocyte % (Auto) 0.3 % Immature Granulocyte # (Auto) 0.04 0.00-0.02 K/uL Sodium Level 141 136-145 mmol/L Potassium Level 4.5 3.5-5.1 mmol/L Chloride Level 108 98-107 mmol/L Carbon Dioxide Level 27 21-32 mmol/L Anion Gap 6.0 3-11 mmol/L Blood Urea Nitrogen 28 7-18 mg/dl Creatinine 1.77 0.60-1.40 mg/dl Est Creatinine Clear Calc Drug Dose 40.2 ml/min Estimated GFR () 40.3 Estimated GFR (Non- 34.7 BUN/Creatinine Ratio 15.9 10-20 Random Glucose 140 70-99 mg/dl Calcium Level 8.5 8.5-10.1 mg/dl Magnesium Level 2.3 1.8-2.4 mg/dl Total Bilirubin 0.6 0.2-1 mg/dl Direct Bilirubin 0.2 0-0.2 mg/dl Aspartate Amino Transf (AST/SGOT) 27 15-37 U/L Alanine Aminotransferase (ALT/SGPT) 25 12-78 U/L Alkaline Phosphatase 139 45-117 U/L Troponin I 0.582 0-0.045 ng/ml Total Protein 7.1 6.4-8.2 gm/dl Albumin 3.4 3.4-5.0 gm/dl Diagnostic Radiology Thoracic spine CT: IMPRESSION: 1. There is no evidence of fracture or malalignment involving the thoracic spine. 2. Cardiomegaly with evidence of congestive failure. 3. Trace right pleural effusion. Cervical spine CT: 1. There is no evidence of fracture or subluxation involving the cervical spine. 2. Osteopenia and spondylotic change as above. Lumbar spine CT: 1. There is a burst type compression fracture of the L3 vertebral body as detailed above. No retropulsed fragments are identified. 2. No additional fracture is seen involving the lumbar spine. CT chest/abdomen/pelvis: 1. There is a burst type fracture of the L3 vertebral body. Fracture extends through the anterior and posterior cortex of the vertebral body and also involves the inferior endplate. No retropulsed fragments are identified. 2. No additional acute fracture is clearly identified. Bilateral anterior rib fractures are likely chronic. Correlate for point tenderness. 3. Cardiomegaly and AICD. There is diffuse intralobular septal thickening suggesting congestive failure. 4. There is a trace right pleural effusion. 5. No airspace consolidation or pneumothorax is seen. 6. There is no evidence of solid organ injury in the abdomen or pelvis on this unenhanced examination. 7. There is moderate to advanced atherosclerotic calcification of the abdominal aorta with evidence of previous graft repair. No aneurysm is seen. 8. There is mild nonspecific stranding identified around the abdominal aorta. This may be related to previous surgery. An inflammatory aortitis is considered less likely but could also have this appearance. Correlation within the prior outside imaging studies would be helpful for comparison purposes. No retroperitoneal hemorrhage or periaortic blood is seen. 9. Moderate to advanced colonic diverticulosis without CT evidence of acute diverticulitis. 10. Additional findings as above. CT head: 1. There is no hemorrhage, mass effect, or evidence of acute territorial ischemia by CT criteria. 2. A 2.1 cm extra-axial nodule along the left frontal convexity is typical in appearance for a meningioma. There is no associated mass effect. EKG Widened QRS rhythm, underlying A. fib?, Rate 60, pacer spikes present, inferior infarct is old Impression Assessment and Plan This patient is an 82-year-old male with a history of V. tach cardiac arrest, pacemaker in situ, CAD with ischemic cardiomyopathy, chronic combined systolic and diastolic CHF, PAF, aortic stenosis, CVA, CKD stage III, h/o AAA repair, DM 2, HTN, HL, prostate cancer, gout, peripheral neuropathy with frequent falls, seasonal allergies, GERD, AUDREY, and periodic limb movement disorder, who presents to the ER after sustaining a fall on his back last evening around 2244. He reports lifting a chair and starting to walk backwards to move it and he lost his balance, falling backwards and landing his mid back on the ledge of a TV stand about 18 inches off the ground. His was able to help him up and he walked to go to bed. When he tried to get out of bed this morning he had severe pain. He took Tylenol and then his called the ambulance. He was CAT scan from head through pelvis and found to have an L3 burst fracture without compromise of the canal. He has no radicular symptoms. He denies pain anywhere else except in his lower back. He was also found to have an elevated troponin at 0.5, but denies chest pain or shortness of breath. His ECG showed possible pacemaker failure and with a widened QRS. Pacer interrogation was attempted in the ER and they were unable to complete this. He denies having any problems with his pacer/defibrillator since he was here in 2016 after it went off several times. He was mildly hypoxic in the ER and placed on supplemental O2. He denies headache, other joint pains, abdominal pain, constipation or diarrhea, no GI bleeding, no nausea or vomiting. He will be admitted for elevated troponin and intractable back pain with an L3 traumatic burst fracture. Fall/L3 traumatic burst fracture-fall is mechanical and likely secondary to deconditioning and peripheral neuropathy. No focal neurological deficits on exam no compromise of the central canal on imaging. -Admit to telemetry given elevated troponin -Morphine, Percocet, Tylenol as needed for pain control, avoid NSAIDs due to CKD stage III -Consult orthopedic spine surgeon -PT/OT consults and may need rehab placement -Recommended no driving given his significant peripheral neuropathy history Elevated troponin/CAD/history of V. tach arrest/pacer defibrillator in place/ dyslipidemia-likely myocardial demand ischemia. ECG difficult to interpret and appreciate cardiology assistance. -Trend serial troponin -No need for echocardiogram at this point unless troponin continues to rise -Consult cardiology -Interrogate pacer-has been ordered by ED -Continue aspirin, Plavix, High intensity statin, Toprol-XL -Daily ECG Chronic combined systolic and diastolic CHF/PAF/moderate /HTN/h/o AAA repair- all stable at this time, no evidence of volume overload -Continue Toprol -Is not on an KAREN or ARB presumably due to CKD? -Follow I's and O's, low-sodium diet, daily weights CKD stage III-creatinine is at baseline right now 1.77, and all other electrolytes are stable -Avoid nephrotoxins -Renally dose medications -Follow BMP History of CVA-noted -Continue aspirin, Plavix, statin AUDREY-declined BiPAP in the past -May need nasal cannula at nighttime Acute hypoxic respiratory failure-unclear reason, perhaps from getting opioids in the ER? May have some underlying COPD given history of smoking -Maintain supplemental O2 to keep pulse ox greater than 92% GERD-continue PPI Prophylaxis-heparin SQ, SCDs Disposition-PT/OT consultations, may need rehab placement Meningioma Complex possibly hemorrhagic renal cyst Advanced Directives Existing Living Will: Yes Existing Power of Carrier Packer: Yes () Resuscitation Status DNR/DNI, if his personal defibrillator goes off, he is okay with that, but no external defibrillation or CPR. He is okay with using BiPAP but no intubation VTE Prophylaxis Will order VTE Prophylaxis: Yes Additional Copies To Sukhdev Quinn M.D.
[2017-10-15] MEDS ORDERED: CARBOHYDRATES FOR HYPOGLYCEMIA PO PRN (10:00)
[2017-10-15] MEDS ORDERED: GLUCOSE 40% GEL 15 GM TUBE PO PRN (10:00)
[2017-10-15] MEDS ORDERED: ACETAMINOPHEN 325 MG TAB PO PRN (10:00)
[2017-10-15] MEDS ORDERED: DEXTROSE 50% 50 ML SYR IV PRN (10:00)
[2017-10-15] MEDS ORDERED: GLUCOSE 10 TABS/TUBE PO PRN (10:00)
[2017-10-15] MEDS ORDERED: GLUCAGON FOR INJ 1 MG VIAL SQ PRN (10:00)
[2017-10-15] MEDS ORDERED: FLUTICASONE PROPIONATE NA SPR 16 GM BTL PRN (10:15)
[2017-10-15] MEDS ORDERED: ACETAMINOPHEN 500 MG TAB PO PRN (10:15)
[2017-10-15] MEDS ORDERED: ALBUTEROL HFA 8 GM INHALER INH PRN (10:15)
[2017-10-15] MEDS ORDERED: POLYETHYLENE (MIRALAX) 17 GM PACK PO PRN (10:15)
[2017-10-15 10:30] VITALS: BP 154/80; PULSE 60; TEMP 36.3; O2SAT 94
[2017-10-15] MEDS: INSULIN ASPART 100 UNITS/ML 3 ML PEN SC SCH ×3 (11:00→21:00)
[2017-10-15 11:10] LABS: PTT PATIENT 25.4 SECONDS (21.0-31.0)
[2017-10-15] MEDS ORDERED: IV FLUIDS COMPLETED PRN (13:00)
[2017-10-15] MEDS: AMIODARONE 200 MG TAB PO SCH (13:07)
[2017-10-15] MEDS: ASPIRIN 81 MG ECTAB PO SCH (13:08)
[2017-10-15] MEDS: ATORVASTATIN 40 MG TAB PO SCH (13:08)
[2017-10-15] MEDS: CLOPIDOGREL BISULFATE 75 MG TAB PO SCH (13:08)
[2017-10-15] MEDS: PANTOprazole SOD 40 MG TAB PO SCH (13:09)
[2017-10-15] MEDS: METOPROLOL SUCC 25MG EXT REL TAB PO SCH (13:09)
[2017-10-15] MEDS: CHOLECALCIFEROL 1000 INTER.UNIT TAB PO SCH (13:09)
[2017-10-15] MEDS: CYANOCOBALAMIN 500 MCG TAB (VIT B-12) PO SCH (13:10)
[2017-10-15] MEDS: OXYCODONE/ACETAMINOPHEN 5-325 TAB PO PRN (13:21)
[2017-10-15 15:08] VITALS: BP 149/83; PULSE 60; TEMP 36.3; O2SAT 96
[2017-10-15] MEDS: MoRPHine SULFATE 2 MG/ML CARP IV PRN (15:49)
--- NOTE | 2017-10-15 17:31 | ORTHOPEDIC CONSULTATION ---
DATE OF CONSULTATION: 10/15/2017 REASON FOR VISIT: Orthopedic consultation in regard to a burst fracture of the L3 vertebrae. HISTORY OF PRESENT ILLNESS: Mr. Reddy is pleasant. I knew him from the past. He fell backwards last night, injured his spine. He really lost balance, a little equilibrium issues and had his injury. He did not think it was terrible at that time, and actually this morning he sought medical care, brought into the Emergency Room. He was mildly hypoxic in the ER, placed on O2, evaluation and treatment along with laboratory data and the CT scan demonstrating a fracture. PAST MEDICAL HISTORY: Significant for cardiac arrest, pacemaker, elevated troponin, cardiomyopathy, old CVA, chronic kidney disease, diabetes, hypertension, obesity. PAST SURGICAL HISTORY: Aortic aneurysm repair, knees scope, pacemaker placement, tonsillectomy. SOCIAL HISTORY: Former smoker. Alcohol 1 drink per week. He is and lives with the significant other, retired. MEDICATIONS: Reviewed. OBJECTIVE: GENERAL: He is alert, oriented, conversive today. He is very astute. VITAL SIGNS: Blood pressure 130/70, pulse 80 and regular. HEENT: Normal on inspection. ABDOMEN: Soft, nontender, no referred pain. MUSCULOSKELETAL: He did have some abrasion of skin. He has some pain with percussion and palpation. NEUROLOGIC: Intact, 5/5 strength. IMAGING: Images reviewed, demonstrate a very mild burst fracture of the L3 vertebra. There are no retropulsed fragments. It is a stable injury. Single column involvement. PLAN: Surgery contraindicated or certainly not indicated. I will order a back brace for him. It is Tuesday at the time of this dictation. Sometimes the brace individuals are not around on Tuesday to get patient fitted for a brace. It will probably be Tuesday, and I am sure he will be here at least until Tuesday. I will follow him each and every day and see him as an outpatient when he is discharged.
[2017-10-15 19:46] VITALS: BP 123/70; PULSE 58; TEMP 36.5; O2SAT 93
[2017-10-15] MEDS: HEPARIN SOD 5000 UNIT/0.5 ML CARP SQ SCH (21:00)
[2017-10-15] MEDS: PREGABALIN 50 MG CAP PO SCH (21:09)
[2017-10-15 23:52] VITALS: BP 162/79; PULSE 60; TEMP 36.6; O2SAT 91
[2017-10-16] MEDS: MoRPHine SULFATE 2 MG/ML CARP IV PRN (01:20)
[2017-10-16 02:31] VITALS: BP 148/77; PULSE 60; TEMP 36.7; O2SAT 94
[2017-10-16] MEDS: INSULIN ASPART 100 UNITS/ML 3 ML PEN SC SCH ×4 (07:00→20:40)
[2017-10-16 07:34] VITALS: BP 147/79; PULSE 59; TEMP 36.7; O2SAT 91
[2017-10-16 08:19] LABS: BASO % 0.2 %; BASO ABS # 0.03 K/uL (0-0.2); EOS % 2.4 %; EOS ABS # 0.31 K/uL (0-0.5); HEMOGLOBIN 14.9 g/dL (14.0-18.0); IG# 0.04 K/uL (0.00-0.02); LYMPH % 11.1 %; LYMPH ABS # 1.44 K/uL (1.2-3.4); MEAN CELL VOLUME 101.1 fL (80-100); MEAN CORPUSCULAR HGB CONC 31.7 g/dl (32-36); MEAN PLATELET VOLUME 10.4 fL (7.4-10.4); MONO % 10.2 %; MONO ABS # 1.32 K/uL (0.11-0.59); NEUT % 75.8 %; NEUT ABS # 9.78 K/uL (1.4-6.5); PLATELET COUNT 153 K/uL (130-400); RED CELL DISTRIBUTION WIDTH CV 15.2 % (11.5-14.5); RED CELL DISTRIBUTION WIDTH SD 56.2 fL (36.4-46.3); WHITE BLOOD COUNT 12.92 K/uL (4.8-10.8)
[2017-10-16 08:42] LABS: CALCIUM 8.6 mg/dl (8.5-10.1); CREATININE 1.74 mg/dl (0.60-1.40); POTASSIUM 4.5 mmol/L (3.5-5.1)
[2017-10-16] MEDS: AMIODARONE 200 MG TAB PO SCH (08:46)
[2017-10-16] MEDS: ASPIRIN 81 MG ECTAB PO SCH (08:46)
[2017-10-16] MEDS: METOPROLOL SUCC 25MG EXT REL TAB PO SCH (08:47)
[2017-10-16] MEDS: PANTOprazole SOD 40 MG TAB PO SCH (08:47)
[2017-10-16] MEDS: CLOPIDOGREL BISULFATE 75 MG TAB PO SCH (08:47)
[2017-10-16] MEDS: ATORVASTATIN 40 MG TAB PO SCH (08:47)
[2017-10-16] MEDS: CYANOCOBALAMIN 500 MCG TAB (VIT B-12) PO SCH (08:48)
[2017-10-16] MEDS: CHOLECALCIFEROL 1000 INTER.UNIT TAB PO SCH (08:48)
[2017-10-16] MEDS: PREGABALIN 50 MG CAP PO SCH ×2 (08:49→20:43)
[2017-10-16] MEDS: HEPARIN SOD 5000 UNIT/0.5 ML CARP SQ SCH ×2 (08:51→20:43)
[2017-10-16 11:33] VITALS: BP 145/79; PULSE 60; TEMP 36.6; O2SAT 91
--- NOTE | 2017-10-16 13:29 | Hospitalist Progress Note ---
Hospitalist Progress Note Date of Service Oct 16, 2017. Subjective Pt evaluation today including: conversation w/ patient Voiding: no voiding problems Patient feeling better, pain in his back is controlled. He denies chest pain or shortness of breath. His pacer was interrogated and there is no concerning arrhythmias as per cardiology interpretation. I discussed the case with business controller today. Troponin trended downward. Telemetry with paced rhythm here. All Other Systems: Reviewed and Negative Objective Vital Signs Date Time Temp Pulse Resp B/P (MAP) Pulse Ox O2 Delivery O2 Flow Rate FiO2 10/16/17 11:33 36.6 60 20 145/79 (101) 91 Nasal Cannula 2.0 10/16/17 08:00 Nasal Cannula 2.0 10/16/17 07:34 36.7 59 19 147/79 (101) 91 Nasal Cannula 2.0 10/16/17 02:31 36.7 60 21 148/77 (100) 94 Nasal Cannula 2.0 10/15/17 23:52 36.6 60 19 162/79 (106) 91 Nasal Cannula 2.0 10/15/17 20:00 Nasal Cannula 2.0 10/15/17 19:46 36.5 58 16 123/70 (87) 93 Nasal Cannula 2.0 10/15/17 15:08 36.3 60 19 149/83 (105) 96 Nasal Cannula 2.0 Physical Exam General Appearance: WD/WN, no apparent distress Eyes: normal inspection, EOMI, sclerae normal ENT: hearing grossly normal Neck: trachea midline Respiratory/Chest: lungs clear, normal breath sounds, no respiratory distress, no accessory muscle use Cardiovascular: regular rate, rhythm, no edema, no murmur Abdomen: normal bowel sounds, non tender, soft Extremities: normal inspection, no pedal edema, no calf tenderness Neurologic/Psychiatric: alert, normal mood/affect, oriented x 3 Skin: normal color, warm/dry, no rash, + pertinent finding (Large abrasion across the mid back) Laboratory Results Last 24 Hours Test 10/15/17 15:57 10/15/17 16:13 10/15/17 20:04 10/15/17 21:51 Troponin I 0.537 ng/ml 0.555 ng/ml Bedside Glucose 87 mg/dl 96 mg/dl Test 10/16/17 04:03 10/16/17 08:04 10/16/17 11:15 Troponin I 0.375 ng/ml White Blood Count 12.92 K/uL Red Blood Count 4.65 M/uL Hemoglobin 14.9 g/dL Hematocrit 47.0 % Mean Corpuscular Volume 101.1 fL Mean Corpuscular Hemoglobin 32.0 pg Mean Corpuscular Hemoglobin Concent 31.7 g/dl Platelet Count 153 K/uL Mean Platelet Volume 10.4 fL Neutrophils (%) (Auto) 75.8 % Lymphocytes (%) (Auto) 11.1 % Monocytes (%) (Auto) 10.2 % Eosinophils (%) (Auto) 2.4 % Basophils (%) (Auto) 0.2 % Neutrophils # (Auto) 9.78 K/uL Lymphocytes # (Auto) 1.44 K/uL Monocytes # (Auto) 1.32 K/uL Eosinophils # (Auto) 0.31 K/uL Basophils # (Auto) 0.03 K/uL RDW Standard Deviation 56.2 fL RDW Coefficient of Variation 15.2 % Immature Granulocyte % (Auto) 0.3 % Immature Granulocyte # (Auto) 0.04 K/uL Sodium Level 137 mmol/L Potassium Level 4.5 mmol/L Chloride Level 103 mmol/L Carbon Dioxide Level 30 mmol/L Anion Gap 4.0 mmol/L Blood Urea Nitrogen 24 mg/dl Creatinine 1.74 mg/dl Est Creatinine Clear Calc Drug Dose 40.4 ml/min Estimated GFR () 41.1 Estimated GFR (Non- 35.5 BUN/Creatinine Ratio 13.5 Random Glucose 129 mg/dl Calcium Level 8.6 mg/dl Magnesium Level 2.3 mg/dl Bedside Glucose 124 mg/dl Assessment and Plan This patient is an 82-year-old male with a history of V. tach cardiac arrest, pacemaker in situ, CAD with ischemic cardiomyopathy, chronic combined systolic and diastolic CHF, PAF, aortic stenosis, CVA, CKD stage III, h/o AAA repair, DM 2, HTN, HL, prostate cancer, gout, peripheral neuropathy with frequent falls, seasonal allergies, GERD, AUDREY, and periodic limb movement disorder, who presents to the ER after sustaining a mechanical fall on his back with resulting L3 burst fracture without compromise of the canal. He was also found to have an elevated troponin at 0.5, but denies chest pain or shortness of breath. Fall/L3 traumatic burst fracture-fall is mechanical and likely secondary to deconditioning and peripheral neuropathy. No focal neurological deficits on exam no compromise of the central canal on imaging. Pain controlled today -Morphine, Percocet, Tylenol as needed for pain control, avoid NSAIDs due to CKD stage III -Consult orthopedic spine surgeon-appreciate recommendations for back brace which is ordered-awaiting arrival of brace, weight-bear as tolerated, no surgical intervention necessary -PT/OT consults pending back brace placement first-and may need rehab placement -Recommended no driving given his significant peripheral neuropathy history Elevated troponin/CAD/history of V. tach arrest/pacer defibrillator in place/ dyslipidemia-likely myocardial demand ischemia. ECG with long AV delay, paced, and RBBB Serial troponin mildly elevated but trended downward after admission-likely secondary to myocardial demand ischemia from stress of fall with underlying CAD and CKD -No need for echocardiogram at this point or any further testing -Consult cardiology appreciated-consideration to be made to add on nitrate and hydralazine for CHF as below -Interrogated pacer-no significant issues -Continue aspirin, Plavix, High intensity statin, Toprol-XL Chronic combined systolic and diastolic CHF/PAF/moderate /HTN/h/o AAA repair- all stable at this time, no evidence of volume overload -Continue Toprol -Is not on an KAREN or ARB presumably due to CKD?-Cardiology suggests possibility of adding a nitrate and hydralazine but will defer at this time -Follow I's and O's, low-sodium diet, daily weights CKD stage III-creatinine is at baseline right now 1.7, and all other electrolytes are stable -Avoid nephrotoxins -Renally dose medications -Follow BMP periodically History of CVA-noted -Continue aspirin, Plavix, statin AUDREY-declined BiPAP in the past -May need nasal cannula at nighttime Acute hypoxic respiratory failure-unclear reason, perhaps from getting opioids in the ER? May have some underlying COPD given history of smoking. Now resolved -Maintain supplemental O2 to keep pulse ox greater than 92% GERD-continue PPI Prophylaxis-heparin SQ, SCDs Disposition-PT/OT consultations, may need rehab placement-medically stable for discharge at this point when back brace placed Meningioma Complex possibly hemorrhagic renal cyst
--- NOTE | 2017-10-16 13:45 | CARDIOLOGY CONSULTATION ---
DATE OF CONSULTATION: 10/16/2017 REFERRING PHYSICIAN: Marylou Schaeffer MD PRIMARY CARE PHYSICIAN: Sukhdev Quinn MD PRIMARY CLOTHES SHAKER: Bebo Mosley DO INDICATIONS: Elevated troponin, mechanical fall. HISTORY OF PRESENT ILLNESS: The patient is a complex 82-year-old male whose underlying history is notable for ischemic heart disease, ischemic cardiomyopathy with prior right coronary artery area distribution infarct with chronic single vessel occlusion by serial cardiac catheterizations, most recently performed in 12/2015. Carries an underlying history of [id number] LV dysfunction as well as history of prior defibrillator implantation for sustained ventricular tachycardia with a prior appropriate shock. His underlying medical problems include atherosclerotic peripheral vascular disease, prior history of stroke, abdominal aortic aneurysm status post repair, hypertension, hyperlipidemia, chronic renal insufficiency, diabetes with associated neuropathy. The patient presents this admission and notes, he was attempting to move a chair and lost his balance and fell backwards striking his buttock and back with associated severe pain. He presented to the Emergency Room; evaluations demonstrated evidence of a burst fracture at L3. He notes no cardiac complaints in association with pain or discomfort, noted no tachypalpitations, noted no dizziness or lightheadedness, noted no recent angina or congestive heart failure symptoms. Weight has been stable. Notes no signs or symptoms of fluid retention by his own discretion and has been taking his all medications as prescribed. ER raised concerns regarding pacemaker function and initial troponins are noted to be elevated. He is referred now for further evaluation. He is currently comfortable. Notes no chest pain or discomfort. Notes no edema or shortness of breath. Back pain is coming under better control. Anticipates brace placement, possible rehab as possible management. Appetite has been good. Notes no unexplained fevers or infections. REVIEW OF SYSTEMS: Otherwise negative. ALLERGIES: PENICILLIN. MEDICATIONS: Prior to hospitalization were amiodarone 200 mg daily, albuterol p.r.n., aspirin 81 mg per day, atorvastatin 40 mg p.o. daily, calcitriol 0.25 mcg 3 days per week, vitamin D 2000 units every day, clopidogrel 75 mg p.o. day, colchicine 0.6 mg b.i.d., glimepiride 1 mg 1/2 tablet daily, metoprolol succinate 25 mg p.o. daily, Protonix 40 mg p.o. daily, Lyrica 50 mg b.i.d. PAST SURGICAL HISTORY: Notable for as described cardiac catheterization, multiple, with most recent performed in 12/2015, pacer defibrillator implantation, past tonsillectomy, knee surgery, and abdominal aortic aneurysm repair. FAMILY HISTORY: Noncontributory. SOCIAL HISTORY: The patient is currently a nonsmoker. Uses no significant alcoholic beverages. He remains active about his home with limitations due to peripheral neuropathy. PHYSICAL EXAMINATION: VITAL SIGNS: Heart rate is 60, blood pressure is 145/79. HEENT: Normocephalic and atraumatic. NECK: Thick. There is no jugular venous distention. No carotid bruits. LUNGS: Clear to auscultation. CARDIOVASCULAR: Regular with a grade 1/6 systolic murmurs, no diastolic murmur. ABDOMEN: Soft, nontender. There is no palpable hepatosplenomegaly. There is no hepatojugular reflux. There is mild contusion to left flank. EXTREMITIES: Without cyanosis or clubbing. There is no peripheral edema. LABORATORY DATA: White cell count is 12.9, hemoglobin is 14.9. Sodium is 137, potassium is 4.5, chloride is 103, bicarb is 30, BUN 24, creatinine is 1.74. Troponins are elevated, somewhat flattened 0.58, 0.53, 0.55. DIAGNOSTIC DATA: EKGs reveal atrial-paced rhythm with long AV delay, right bundle branch block configuration. Pacer defibrillator interrogation finds it functioning appropriately. No arrhythmias. Excellent battery life. IMPRESSION: An 82-year-old male suffered a mechanical fall with subsequent burst fracture of L3, underlying history of ischemic cardiomyopathy with [id number] left ventricular dysfunction, EF 45% with cardiac catheterizations in the past demonstrating single vessel disease with chronic RCA occlusion. The patient underwent screening of laboratory studies demonstrating elevated troponin. This does not appear to be acute myocardial or coronary syndrome. The patient is asymptomatic from cardiac standpoint with mechanical fall. Suspect troponins are elevated due to multifactorial issues including chronic renal insufficiency. He is on appropriate therapies, though afterload reduction present with KAREN inhibitor or due to past renal insufficiency. Consideration may be made to adding hydralazine and nitrates to regimen, however, will not make changes at this time Primary dog and cat food cook Dr. Mosley will see patient in a.m.
[2017-10-16 15:34] VITALS: BP 134/70; PULSE 60; TEMP 36.9; O2SAT 91
[2017-10-16] MEDS: OXYCODONE/ACETAMINOPHEN 5-325 TAB PO PRN ×2 (19:35)
[2017-10-16 23:00] VITALS: BP 156/76; PULSE 61; TEMP 36.6; O2SAT 94
[2017-10-17] MEDS: MoRPHine SULFATE 2 MG/ML CARP IV PRN (00:43)
[2017-10-17 06:49] LABS: BASO % 0.2 %; BASO ABS # 0.03 K/uL (0-0.2); EOS % 1.2 %; EOS ABS # 0.15 K/uL (0-0.5); HEMOGLOBIN 14.8 g/dL (14.0-18.0); IG# 0.03 K/uL (0.00-0.02); LYMPH % 12.4 %; LYMPH ABS # 1.55 K/uL (1.2-3.4); MEAN CELL VOLUME 100.2 fL (80-100); MEAN CORPUSCULAR HEMOGLOBIN 32.2 pg (25-34); MEAN CORPUSCULAR HGB CONC 32.2 g/dl (32-36); MEAN PLATELET VOLUME 10.9 fL (7.4-10.4); MONO % 13.8 %; MONO ABS # 1.73 K/uL (0.11-0.59); NEUT % 72.2 %; NEUT ABS # 9.06 K/uL (1.4-6.5); PLATELET COUNT 150 K/uL (130-400); RED CELL DISTRIBUTION WIDTH CV 14.9 % (11.5-14.5); RED CELL DISTRIBUTION WIDTH SD 54.7 fL (36.4-46.3); WHITE BLOOD COUNT 12.55 K/uL (4.8-10.8)
[2017-10-17 07:05] LABS: HEMOGLOBIN A1C 6.5 % (4.5-5.6)
[2017-10-17 07:15] LABS: CALCIUM 8.9 mg/dl (8.5-10.1); CREATININE 1.67 mg/dl (0.60-1.40); POTASSIUM 4.6 mmol/L (3.5-5.1)
[2017-10-17 07:25] VITALS: BP 164/89; PULSE 60; TEMP 36.6; O2SAT 91
[2017-10-17] MEDS ORDERED: ACETAMINOPHEN 500 MG TAB PO ONE (08:45)
[2017-10-17] MEDS: INSULIN ASPART 100 UNITS/ML 3 ML PEN SC SCH ×4 (09:27→21:00)
[2017-10-17] MEDS: AMIODARONE 200 MG TAB PO SCH (09:28)
[2017-10-17] MEDS: ATORVASTATIN 40 MG TAB PO SCH (09:28)
[2017-10-17] MEDS: CYANOCOBALAMIN 500 MCG TAB (VIT B-12) PO SCH (09:29)
[2017-10-17] MEDS: CHOLECALCIFEROL 1000 INTER.UNIT TAB PO SCH (09:29)
[2017-10-17] MEDS: CALCITRIOL 0.25 MCG CAP PO SCH (09:29)
[2017-10-17] MEDS: PANTOprazole SOD 40 MG TAB PO SCH (09:29)
[2017-10-17] MEDS: METOPROLOL SUCC 25MG EXT REL TAB PO SCH (09:29)
[2017-10-17] MEDS: CLOPIDOGREL BISULFATE 75 MG TAB PO SCH (09:29)
[2017-10-17] MEDS: ASPIRIN 81 MG ECTAB PO SCH (09:29)
[2017-10-17] MEDS: HEPARIN SOD 5000 UNIT/0.5 ML CARP SQ SCH ×2 (09:32→21:00)
[2017-10-17] MEDS: PREGABALIN 50 MG CAP PO SCH ×2 (09:56→21:19)
--- NOTE | 2017-10-17 09:57 | DIAGNOSTIC IMAGING REPORT ---
CHEST ONE VIEW PORTABLE CLINICAL HISTORY: hypoxia dyspnea COMPARISON STUDY: 12/29/2015 FINDINGS: Developing components of congestive heart failure. Moderate increase in cardiac size. Diaphragms are smooth. Permanent bipolar cardiac pacemaker is in position IMPRESSION: . Congestive heart failure The above report was generated using voice recognition software. It may contain grammatical, syntax or spelling errors. Electronically signed by: Joey Arrieta M.D. 10/17/2017 9:55 AM Dictated Date/Time: 10/17/2017 9:55 AM
[2017-10-17] MEDS ORDERED: OXYCODONE HCL IR 5 MG TAB (IMMEDIATE RELEASE) PO PRN (12:00)
[2017-10-17 12:07] VITALS: O2SAT 79; O2SAT 92
[2017-10-17] MEDS ORDERED: FUROSEMIDE INJ 20 MG in SYRINGE 0 ML IV ONE (12:15)
[2017-10-17] MEDS ORDERED: POLYETHYLENE (MIRALAX) 17 GM PACK PO ONE (12:32)
[2017-10-17] MEDS ORDERED: DOCUSATE SODIUM/SENNA 50/8.6MG TAB PO ONE (12:33)
[2017-10-17] MEDS ORDERED: FUROSEMIDE INJ 40 MG in SYRINGE 0 ML IV ONE (13:00)
[2017-10-17] MEDS ORDERED: ISOSORBIDE DINITRATE 10 MG TAB PO ONE (13:30)
--- NOTE | 2017-10-17 13:58 | PROGRESS NOTE ---
DATE: 10/17/2017 Patient seen and examined. Chart, medications, telemetry reviewed. SUBJECTIVE: Patient notes no specific complaints this morning other than low back pain, appears to be improving. Notes no chest pains or dizziness. Notes no lightheadedness, no syncope. Attempt to wean oxygen, however, begun on oxygen as it did result in hypoxia. Notes no fevers, chills or productive cough. Notes no melena or hematochezia. Notes no change in appetite. I's and O's have been negative though question accurate recording. OBJECTIVE: VITAL SIGNS: On physical examination, heart rate is 60, blood pressure is 146/67, O2 saturations this morning are notable for hypoxia with 79% on room air, 92% on 2 liters nasal cannula. NECK: Thick. There is no distinct jugular venous distention. LUNGS: Reveal diminished breath sounds diffusely. No rhonchi, rale or wheeze are audible. CARDIOVASCULAR: Regular. There is no S3 gallop. ABDOMEN: Soft, moderately distended. EXTREMITIES: Reveal trace pedal edema only. IMPRESSION: An 82-year-old male with issues as follows: 1. Mechanical fall with burst fracture L3. 2. Ischemic cardiomyopathy. 3. History of sustained ventricular arrhythmias with normally functioning pacer defibrillator in place. 4. Hypertension. RECOMMENDATIONS: I agree with assessment that hypoxia reflects mild [id number] decompensation of underlying ischemic cardiomyopathy, mild heart failure. Single dose of furosemide will be administered. I's and O's will be followed strictly including daily weights and afterload reduction as previously noted will be reinstituted with isosorbide and hydralazine. Medication adjustments are being made. Overall, patient is stable without symptoms, will ultimately benefit from optimization of medical therapies.
[2017-10-17] MEDS: ACETAMINOPHEN 500 MG TAB PO SCH ×2 (14:14→21:20)
[2017-10-17 15:07] VITALS: BP 105/46; PULSE 60; TEMP 36.6; O2SAT 96
[2017-10-17 16:20] VITALS: O2SAT 96
--- NOTE | 2017-10-17 17:34 | Hospitalist Progress Note ---
Hospitalist Progress Note Date of Service Oct 17, 2017. Subjective Pt evaluation today including: conversation w/ patient, conversation w/ method consultant (Cardiology) Patient reports the pain in his back is present but is fairly well controlled. He continues to get IV morphine and we discussed stopping this in favor of finding an oral regimen that works for discharge. He denies any shortness of breath at all, no chest pain. He is profoundly hypoxic when removed from oxygen today at 79% on room air, but has no symptoms. He was placed back on oxygen. Constitutional: No fever All Other Systems: Reviewed and Negative Objective Vital Signs Date Time Temp Pulse Resp B/P (MAP) Pulse Ox O2 Delivery O2 Flow Rate FiO2 10/17/17 16:20 96 Nasal Cannula 4.0 10/17/17 15:07 36.6 60 18 105/46 (65) 96 Nasal Cannula 4.0 10/17/17 12:07 92 Nasal Cannula 4.0 10/17/17 12:07 79 Room Air 10/17/17 07:50 Room Air 10/17/17 07:25 36.6 60 18 164/89 (114) 91 Room Air 10/17/17 00:25 Nasal Cannula 4.0 10/16/17 23:00 36.6 61 20 156/76 (102) 94 Nasal Cannula 4.0 Physical Exam General Appearance: WD/WN, no apparent distress Eyes: normal inspection, sclerae normal ENT: hearing grossly normal Neck: trachea midline Respiratory/Chest: no respiratory distress, no accessory muscle use, + crackles (At the bases bilaterally) Cardiovascular: regular rate, rhythm, + systolic murmur, + pertinent finding (1 + pitting edema in the legs bilaterally) Abdomen: normal bowel sounds, non tender, soft Extremities: no calf tenderness Neurologic/Psychiatric: alert, normal mood/affect, oriented x 3 Skin: normal color, warm/dry, no rash Laboratory Results Last 24 Hours Test 10/16/17 20:32 10/17/17 06:09 10/17/17 08:22 10/17/17 12:04 Bedside Glucose 123 mg/dl 120 mg/dl 131 mg/dl White Blood Count 12.55 K/uL Red Blood Count 4.59 M/uL Hemoglobin 14.8 g/dL Hematocrit 46.0 % Mean Corpuscular Volume 100.2 fL Mean Corpuscular Hemoglobin 32.2 pg Mean Corpuscular Hemoglobin Concent 32.2 g/dl Platelet Count 150 K/uL Mean Platelet Volume 10.9 fL Neutrophils (%) (Auto) 72.2 % Lymphocytes (%) (Auto) 12.4 % Monocytes (%) (Auto) 13.8 % Eosinophils (%) (Auto) 1.2 % Basophils (%) (Auto) 0.2 % Neutrophils # (Auto) 9.06 K/uL Lymphocytes # (Auto) 1.55 K/uL Monocytes # (Auto) 1.73 K/uL Eosinophils # (Auto) 0.15 K/uL Basophils # (Auto) 0.03 K/uL RDW Standard Deviation 54.7 fL RDW Coefficient of Variation 14.9 % Immature Granulocyte % (Auto) 0.2 % Immature Granulocyte # (Auto) 0.03 K/uL Sodium Level 138 mmol/L Potassium Level 4.6 mmol/L Chloride Level 102 mmol/L Carbon Dioxide Level 29 mmol/L Anion Gap 7.0 mmol/L Blood Urea Nitrogen 24 mg/dl Creatinine 1.67 mg/dl Est Creatinine Clear Calc Drug Dose 42.1 ml/min Estimated GFR () 43.2 Estimated GFR (Non- 37.3 BUN/Creatinine Ratio 14.5 Random Glucose 114 mg/dl Calcium Level 8.9 mg/dl Test 10/17/17 17:08 Bedside Glucose 100 mg/dl Assessment and Plan This patient is an 82-year-old male with a history of V. tach cardiac arrest, pacemaker in situ, CAD with ischemic cardiomyopathy, chronic combined systolic and diastolic CHF, PAF, aortic stenosis, CVA, CKD stage III, h/o AAA repair, DM 2, HTN, HL, prostate cancer, gout, peripheral neuropathy with frequent falls, seasonal allergies, GERD, AUDREY, and periodic limb movement disorder, who presents to the ER after sustaining a mechanical fall on his back with resulting L3 burst fracture without compromise of the canal. He was also found to have an elevated troponin at 0.5, but denies chest pain or shortness of breath. Fall/L3 traumatic burst fracture-fall is mechanical and likely secondary to deconditioning and peripheral neuropathy. No focal neurological deficits on exam no compromise of the central canal on imaging. Pain controlled today -We will discontinue morphine -change Percocet to oxycodone IR and make Tylenol scheduled at 1000 mg's p.o. every 8 hours for pain control - avoid NSAIDs due to CKD stage III -Consult orthopedic spine surgeon-appreciate recommendations for back brace which was placed today - weight-bear as tolerated, no surgical intervention necessary -PT/OT consults performed later in the day today- needs rehab placement-case management following -Recommended no driving given his significant peripheral neuropathy history Elevated troponin/CAD/history of V. tach arrest/pacer defibrillator in place/ dyslipidemia-likely myocardial demand ischemia. ECG with long AV delay, paced, and RBBB Serial troponin mildly elevated but trended downward after admission-likely secondary to myocardial demand ischemia from stress of fall with underlying CAD and CKD -No need for echocardiogram at this point or any further testing -Consult cardiology appreciated-consideration to be made to add on nitrate and hydralazine for CHF as below -Interrogated pacer-no significant issues -Continue aspirin, Plavix, High intensity statin, Toprol-XL Acute on chronic combined systolic and diastolic CHF/PAF/moderate /HTN/h/o AAA repair-remains profoundly hypoxic, with crackles on exam, although does not feel short of breath, but is not exerting himself much here as has been mostly bedbound. Chest x-ray today with worsening pulmonary edema -Continue Toprol -Is not on an KAREN or ARB presumably due to CKD?-Cardiology suggests adding a nitrate and hydralazine for afterload reduction instead-they added this today -Lasix 40 mill grams IV 1 given now -Follow BMP in the morning -Appreciate cardiology recommendations -Follow I's and O's, low-sodium diet, daily weights CKD stage III-creatinine is at baseline right now 1.6, and all other electrolytes are stable -Avoid nephrotoxins -Renally dose medications -Follow BMP after giving Lasix today History of CVA-noted -Continue aspirin, Plavix, statin AUDREY-declined BiPAP in the past -May need nasal cannula at nighttime Acute hypoxic respiratory failure-probably from some acute on chronic CHF as above, he may have some underlying COPD given history of smoking. -Maintain supplemental O2 to keep pulse ox greater than 92% GERD-continue PPI Prophylaxis-heparin SQ, SCDs Disposition-PT/OT consultations, needs rehab placement likely tomorrow Meningioma Complex possibly hemorrhagic renal cyst
[2017-10-17] MEDS: DOCUSATE SODIUM/SENNA 50/8.6MG TAB PO SCH (21:20)
[2017-10-17] MEDS: HydrALAZINE 10 MG TAB PO SCH (21:20)
[2017-10-17 23:25] VITALS: BP 143/82; PULSE 60; TEMP 36.6; O2SAT 97
[2017-10-18] MEDS: ISOSORBIDE DINITRATE 10 MG TAB PO SCH ×2 (06:33→11:54)
[2017-10-18] MEDS: ACETAMINOPHEN 500 MG TAB PO SCH ×3 (06:33→20:51)
[2017-10-18 06:57] LABS: BASO % 0.2 %; BASO ABS # 0.02 K/uL (0-0.2); EOS % 3.7 %; EOS ABS # 0.36 K/uL (0-0.5); HEMATOCRIT 44.4 % (42-52); HEMOGLOBIN 14.6 g/dL (14.0-18.0); IG# 0.03 K/uL (0.00-0.02); LYMPH % 14.6 %; LYMPH ABS # 1.44 K/uL (1.2-3.4); MEAN CELL VOLUME 99.6 fL (80-100); MEAN CORPUSCULAR HEMOGLOBIN 32.7 pg (25-34); MEAN CORPUSCULAR HGB CONC 32.9 g/dl (32-36); MEAN PLATELET VOLUME 10.7 fL (7.4-10.4); MONO % 12.2 %; NEUT ABS # 6.79 K/uL (1.4-6.5); PLATELET COUNT 139 K/uL (130-400); RED CELL DISTRIBUTION WIDTH CV 14.8 % (11.5-14.5); RED CELL DISTRIBUTION WIDTH SD 53.7 fL (36.4-46.3); WHITE BLOOD COUNT 9.84 K/uL (4.8-10.8)
[2017-10-18 07:22] LABS: CREATININE 1.68 mg/dl (0.60-1.40); POTASSIUM 4.2 mmol/L (3.5-5.1)
[2017-10-18 07:34] VITALS: BP 116/56; PULSE 60; TEMP 36.5; O2SAT 94
[2017-10-18 07:37] VITALS: O2SAT 94
--- NOTE | 2017-10-18 08:30 | ECHOCARDIOGRAM REPORT ---
*NOTICE TO RECEIVING CONSTITUTION PARTY AGENCY This information is strictly Confidential and protected under [place] law. [place] law prohibits you from making any further disclosure of this information unless further disclosure is expressly permitted by the written consent of the person to whom it pertains or is authorized by law. A general authorization for the release of medical or other information is not sufficient for this purpose. Hospital accepts no responsibility if the information is made available to any other person, INCLUDING THE PATIENT. Interpretation Summary * Name: LISA NEWMAN JR Study Date: 10/17/2017 01:42 PM BP: 164/89 mmHg * Patient Location: .[facility] [place]S\W361\S\1 HR: 60 * : 1935 (M/d/yyyy) Gender: Male Height: 72 in * Age: 82 yrs Ethnicity: [place] Weight: 232 lb * Ordering Physician: Salazar Jones * Referring Physician: Self, Referred * Performed By: Demetria Monahan RCS * * Reason For Study: CHF * BSA: 2.3 m2 * -- Conclusions -- * No significant change compared to previous study of 08/21/15. * Normal LV chamber size with moderate concentric LVH. * Mildly reduced LV systolic function, EF 45-50%. * The inferior and posterior last are akinetic and thinned at the basal and mid levels, the anterolateral wall is moderately hypokinetic. Otherwise, normal wall motion. * Grade II diastolic dysfunction. * Moderately calcified, trileaflet aortic valve with mild stenosis and mild regurgitation. * Mild mitral regurgitation. * Mild left atrial enlargement. Procedure Details * A complete two-dimensional transthoracic echocardiogram was performed (2D, M-mode, Doppler and color flow Doppler). Left Ventricle * The left ventricle is normal in size. * There is moderate concentric left ventricular hypertrophy. * Left ventricular systolic function is mildly reduced. * Ejection Fraction = 45-50%. * The inferior and posterior last are akinetic and thinned at the basal and mid levels, the anterolateral wall is moderately hypokinetic. Otherwise, normal wall motion. Right Ventricle * The right ventricular cavity size is normal (basal dimension <4.2 cm in right ventricular apical 4-chamber view). * The right ventricular systolic function is normal as assessed by tricuspid annular plane systolic excursion (TAPSE) (normal >1.5 cm). Atria * The left atrium is mildly dilated. * Right atrial size is normal. * No ASD detected; PFO is not assessed. Mitral Valve * The mitral valve leaflets appear thickened, but open well. * There is no mitral valve stenosis. * There is mild mitral regurgitation. Tricuspid Valve * The tricuspid valve is normal in structure and function. Aortic Valve * The aortic valve is trileaflet. * Moderately calcified, trileaflet aortic valve with mild stenosis and mild regurgitation. Pulmonic Valve * The pulmonary valve is not well seen, but the Doppler examination is normal without significant regurgitation or stenosis. Great Vessels * The aortic root is normal size. Pericardium/Pleural * There is no pericardial effusion. Left Ventricular Diastolic Function * Diastolic dysfunction, Grade II (pseudonormalization pattern). MMode 2D Measurements and Calculations IVSd 2.2 cm IVSs 2.2 cm LVIDd 3.8 cm LVIDs 2.9 cm LVPWd 1.7 cm LVPWs 1.7 cm IVS/LVPW 1.3 FS 24.0 % EDV(Teich) 61.7 ml ESV(Teich) 31.8 ml EF(Teich) 48.5 % EDV(cubed) 54.5 ml ESV(cubed) 24.0 ml EF(cubed) 56.0 % % IVS thick -0.60 % % LVPW thick 0.48 % LV mass(C)d 330.1 grams LV mass(C)dI 145.5 grams/m\S\2 LV mass(C)s 236.9 grams LV mass(C)sI 104.4 grams/m\S\2 SV(Teich) 29.9 ml SI(Teich) 13.2 ml/m\S\2 SV(cubed) 30.6 ml SI(cubed) 13.5 ml/m\S\2 Ao root diam 3.4 cm Ao root area 8.9 cm\S\2 LA dimension 3.9 cm LA/Ao 1.2 LVOT diam 2.2 cm LVOT area 3.6 cm\S\2 LVAd ap4 35.7 cm\S\2 LVLd ap4 8.3 cm EDV(MOD-sp4) 128.9 ml EDV(sp4-el) 130.7 ml LVAs ap4 27.8 cm\S\2 LVLs ap4 8.0 cm ESV(MOD-sp4) 80.9 ml ESV(sp4-el) 81.7 ml EF(MOD-sp4) 37.2 % EF(sp4-el) 37.4 % LVAd ap2 33.9 cm\S\2 LVLd ap2 8.5 cm EDV(MOD-sp2) 114.0 ml EDV(sp2-el) 114.2 ml LVAs ap2 24.7 cm\S\2 LVLs ap2 8.4 cm ESV(MOD-sp2) 64.2 ml ESV(sp2-el) 61.5 ml EF(MOD-sp2) 43.7 % EF(sp2-el) 46.1 % LVLd %diff 2.9 % EDV(MOD-bp) 123.6 ml LVLs %diff 4.5 % ESV(MOD-bp) 72.9 ml EF(MOD-bp) 41.0 % SV(MOD-sp4) 48.0 ml SI(MOD-sp4) 21.2 ml/m\S\2 SV(MOD-sp2) 49.8 ml SI(MOD-sp2) 22.0 ml/m\S\2 SV(MOD-bp) 50.7 ml SI(MOD-bp) 22.4 ml/m\S\2 SV(sp4-el) 48.9 ml SI(sp4-el) 21.6 ml/m\S\2 SV(sp2-el) 52.7 ml SI(sp2-el) 23.2 ml/m\S\2 Doppler Measurements and Calculations MV E max carol 83.0 cm/sec MV A max carol 57.2 cm/sec MV E/A 1.5 MV P1/2t max carol 112.2 cm/sec MV P1/2t 67.0 msec MVA(P1/2t) 3.3 cm\S\2 MV dec slope 490.6 cm/sec\S\2 MV dec time 0.21 sec Ao V2 max 267.4 cm/sec Ao max PG 28.7 mmHg Ao max PG (full) 26.2 mmHg LAURO(V,A) 1.1 cm\S\2 LAURO(V,D) 1.1 cm\S\2 AI max carol 424.0 cm/sec AI max PG 71.9 mmHg AI dec slope 173.9 cm/sec\S\2 AI P1/2t 714.2 msec LV V1 max PG 2.4 mmHg LV V1 max 77.6 cm/sec PA V2 max 85.4 cm/sec PA max PG 2.9 mmHg
[2017-10-18] MEDS: INSULIN ASPART 100 UNITS/ML 3 ML PEN SC SCH ×5 (08:54→20:41)
[2017-10-18] MEDS: HEPARIN SOD 5000 UNIT/0.5 ML CARP SQ SCH ×2 (08:57→20:40)
[2017-10-18] MEDS: METOPROLOL SUCC 25MG EXT REL TAB PO SCH (09:02)
[2017-10-18] MEDS: CYANOCOBALAMIN 500 MCG TAB (VIT B-12) PO SCH (09:03)
[2017-10-18] MEDS: DOCUSATE SODIUM/SENNA 50/8.6MG TAB PO SCH ×2 (09:04→20:51)
[2017-10-18] MEDS: PANTOprazole SOD 40 MG TAB PO SCH (09:05)
[2017-10-18] MEDS: CLOPIDOGREL BISULFATE 75 MG TAB PO SCH (09:06)
[2017-10-18] MEDS: ATORVASTATIN 40 MG TAB PO SCH (09:09)
[2017-10-18] MEDS: PREGABALIN 50 MG CAP PO SCH ×2 (09:09→20:51)
[2017-10-18] MEDS: ASPIRIN 81 MG ECTAB PO SCH (09:10)
[2017-10-18] MEDS: AMIODARONE 200 MG TAB PO SCH (09:11)
[2017-10-18] MEDS: HydrALAZINE 10 MG TAB PO SCH ×2 (09:12→20:51)
[2017-10-18] MEDS: CHOLECALCIFEROL 1000 INTER.UNIT TAB PO SCH (09:13)
[2017-10-18] MEDS: POLYETHYLENE (MIRALAX) 17 GM PACK PO SCH (09:25)
--- NOTE | 2017-10-18 09:40 | ORTHOPEDICS PROGRESS NOTE ---
DATE: 10/18/2017 SUBJECTIVE: He is alert, oriented, minimal complaints of pain. Out of bed to chair. OBJECTIVE: Neurologically intact. Vascular structures intact. Afebrile. ASSESSMENT: Status post very minor burst fracture of lumbar spine. PLAN: Back brace for support, mobilization, medical management. I favor discharge home in the next 24 hours.
[2017-10-18] MEDS ORDERED: FUROSEMIDE 40 MG TAB PO ONE (10:35)
[2017-10-18] MEDS ORDERED: ISR10 PO (10:45)
[2017-10-18] MEDS ORDERED: MRLP17 PO (10:45)
[2017-10-18] MEDS ORDERED: SENN8.6T7 PO (10:45)
[2017-10-18] MEDS ORDERED: APR10 PO (10:45)
[2017-10-18] MEDS ORDERED: RXC5 PO (10:45)
--- NOTE | 2017-10-18 10:55 | Discharge Instructions ---
Discharge Instructions Date of Service Oct 18, 2017. Admission Reason for Admission: Elevated Troponin, Lumbar Burst Fracture Discharge Discharge Diagnosis / Problem: Lumbar burst fracture, elevated troponin Discharge Goals Goal(s): Improve disease control, Diagnostic testing, Therapeutic intervention Activity Recommendations Activity Level: Assistance Required Therapies: Physical Therapy, Weight Bearing Status (As tolerated), Occupational Therapy Lifting Limitations: no more than 5 pounds Exercise/Sports Limitations: gradually increase as tolerated Shower/Bathe: no limitations . Additional Information Patient informed of condition: Yes Advance Directives: Yes DNR: Yes Level of Care: Acute Rehab Communicable Disease: No Prognosis: Stable Oxygen at (LPM): 2 L nasal cannula to keep pulse ox greater than 92% [place] Catheter: No Instructions / Follow-Up Instructions / Follow-Up This patient is an 82-year-old male with a history of V. tach cardiac arrest, pacemaker in situ, CAD with ischemic cardiomyopathy, chronic combined systolic and diastolic CHF, PAF, mild aortic stenosis, CVA, CKD stage III, h/o AAA repair , DM 2, HTN, HL, prostate cancer, gout, peripheral neuropathy with frequent falls, seasonal allergies, GERD, AUDREY, and periodic limb movement disorder, who presents to the ER after sustaining a mechanical fall on his back with resulting L3 burst fracture without compromise of the canal. He was also found to have an elevated troponin at 0.5, but denies chest pain or shortness of breath. Fall/L3 traumatic burst fracture-fall is mechanical and likely secondary to deconditioning and peripheral neuropathy. No focal neurological deficits on exam except for chronic decreased sensation in the feet and distal legs bilaterally, no compromise of the central canal on imaging. Pain controlled today -Morphine causes confusion -Continue oxycodone IR and Tylenol as needed pain - avoid NSAIDs due to CKD stage III -Consult orthopedic spine surgeon-appreciate recommendations for back brace which was placed here - weight-bear as tolerated, no surgical intervention necessary -PT/OT consults performed later in the day today- needs rehab placement -Recommended no driving given his significant peripheral neuropathy history- form will be submitted to the [facility] and I advised the patient of this Elevated troponin/CAD/history of V. tach arrest/pacer defibrillator in place/ dyslipidemia-likely myocardial demand ischemia. ECG with long AV delay, paced, and RBBB Serial troponin mildly elevated but trended downward after admission-likely secondary to myocardial demand ischemia from stress of fall with underlying CAD and CKD -Echocardiogram with no new wall motion abnormalities -Consult cardiology appreciated-recommended adding on nitrate and hydralazine for CHF as below -Interrogated pacer-no significant issues -Continue aspirin, Plavix, High intensity statin, Toprol-XL Acute on chronic combined systolic and diastolic CHF/PAF/mild /HTN/h/o AAA repair-remains hypoxic but improved with giving IV Lasix 1, lung exam improved after diuresis. He does have chronic dyspnea on exertion and has never been on oxygen before. Chest x-ray with worsening pulmonary edema prior to administration of Lasix. Blood pressures have been well controlled -Continue Toprol -Is not on an KAREN or ARB presumably due to CKD-Cardiology suggests adding a nitrate and hydralazine for afterload reduction instead-Isordil 10 mg twice daily and hydralazine 10 mg twice daily -Lasix 40 mill grams IV 1 was given with good response -Begin daily Lasix 40 mill grams p.o. in the morning -Follow BMP periodically for renal function -Appreciate cardiology recommendations -Follow I's and O's, low-sodium diet, daily weights -Follow-up with cardiology as an outpatient -No intervention necessary for his aortic stenosis at this point-continued surveillance CKD stage III-creatinine is at baseline right now 1.68, and all other electrolytes are stable -Avoid nephrotoxins -Renally dose medications -Follow BMP periodically History of CVA-noted -Continue aspirin, Plavix, statin AUDREY-declined BiPAP in the past -We will need to continue on nasal cannula 2 L O2 continuously through the night even if weaned off during the day Acute hypoxic respiratory failure-probably from some acute on chronic CHF as above, he may have some underlying COPD given history of smoking. -Maintain supplemental O2 to keep pulse ox greater than 92% GERD-continue PPI Stable for discharge to rehab today Current Hospital Diet Patient's current hospital diet: Low Sodium Diet (2gm Na), Diabetes Type 2 Diet Discharge Diet Recommended Diet: Low Sodium Diet (2gm Na), Diabetes Type 2 Diet Fluid Restriction: 1800 ml (7 cups) Procedures Procedures Performed: Echocardiogram CT of cervical/thoracic/lumbar spine CT chest/abdomen/pelvis CT head Chest x-ray Pending Studies Studies pending at discharge: no Physician Orders On Transfer Special Precautions: Fall risk IV Therapy: None Vital Signs: Daily Weigh: Daily POLST Discussion: Not Applicable Laboratory Results Last 24 Hours Test 10/17/17 12:04 10/17/17 17:08 10/17/17 20:56 10/18/17 06:38 Bedside Glucose 131 mg/dl 100 mg/dl 109 mg/dl White Blood Count 9.84 K/uL Red Blood Count 4.46 M/uL Hemoglobin 14.6 g/dL Hematocrit 44.4 % Mean Corpuscular Volume 99.6 fL Mean Corpuscular Hemoglobin 32.7 pg Mean Corpuscular Hemoglobin Concent 32.9 g/dl Platelet Count 139 K/uL Mean Platelet Volume 10.7 fL Neutrophils (%) (Auto) 69.0 % Lymphocytes (%) (Auto) 14.6 % Monocytes (%) (Auto) 12.2 % Eosinophils (%) (Auto) 3.7 % Basophils (%) (Auto) 0.2 % Neutrophils # (Auto) 6.79 K/uL Lymphocytes # (Auto) 1.44 K/uL Monocytes # (Auto) 1.20 K/uL Eosinophils # (Auto) 0.36 K/uL Basophils # (Auto) 0.02 K/uL RDW Standard Deviation 53.7 fL RDW Coefficient of Variation 14.8 % Immature Granulocyte % (Auto) 0.3 % Immature Granulocyte # (Auto) 0.03 K/uL Sodium Level 138 mmol/L Potassium Level 4.2 mmol/L Chloride Level 99 mmol/L Carbon Dioxide Level 32 mmol/L Anion Gap 7.0 mmol/L Blood Urea Nitrogen 33 mg/dl Creatinine 1.68 mg/dl Est Creatinine Clear Calc Drug Dose 41.5 ml/min Estimated GFR () 42.9 Estimated GFR (Non- 37.0 BUN/Creatinine Ratio 19.4 Random Glucose 97 mg/dl Calcium Level 9.0 mg/dl Magnesium Level 2.2 mg/dl Test 10/18/17 08:20 Bedside Glucose 100 mg/dl Hemoglobin A1c Test 10/16/17 04:03 Range/Units Estimated Average Glucose 140 mg/dl Hemoglobin A1c 6.5 H 4.5-5.6 % Medical Emergencies . Who to Call and When: Medical Emergencies: If at any time you feel your situation is an emergency, please call 911 immediately. . Non-Emergent Contact Non-Emergency issues call your: Primary Care Provider, Concrete Mason, Surgeon Call Non-Emergent contact if: you have a fever, temperature is above 101, your pain is not controlled, your pain is worsening, your pain is unusual for you, your pain is concerning you, you have any medication questions . . "Provider Documentation" section prepared by Marylou Schaeffer. . Core Measure Problem Core Measures: None [place] Drug Monitoring Program Search Results: patient reviewed within database, no issues identified
--- NOTE | 2017-10-18 10:58 | Discharge Summary ---
Discharge Summary Date of Service Oct 19, 2017. Discharge Summary Admission Date: Oct 15, 2017 at 10:03 Discharge Date: Oct 19, 2017 Discharge Disposition: shelter facility Principal Diagnosis: Lumbar burst fracture, elevated troponin Problems/Secondary Diagnoses: Myocardial demand ischemia History of V. tach cardiac arrest Pacemaker/AICD in situ CAD with ischemic cardiomyopathy Acute on chronic combined systolic and diastolic CHF PAF Mild aortic stenosis CKD stage III H/o AAA repair DM 2 HTN HL Prostate cancer Gout Peripheral neuropathy with frequent falls Seasonal allergies GERD Periodic limb movement disorder H/o AAA repair Acute hypoxic respiratory failure Chronic dyspnea-suspected COPD History of CVA-noted AUDREY-declined BiPAP in the past DMII, not on long-term insulin, well controlled GERD Meningioma Complex hemorrhagic renal cyst, bilateral renal cysts Immunizations: History of Tetanus Vaccine?: Yes History of Pneumococcal: No History of Hepatitis B Vaccine: No Procedures: Echocardiogram CT of cervical/thoracic/lumbar spine CT chest/abdomen/pelvis CT head Chest x-ray Consultations: Orthopedic spine surgery Cardiology Medication Reconciliation New Medications: Hydralazine HCl (Hydralazine HCl) 10 Mg Tab 10 MG PO BID for 30 Days, #60 TAB Isosorbide Dinitrate (Isosorbide Dinitrate) 10 Mg Tab 10 MG PO BID@0700,1200 for 30 Days, #60 TAB Oxycodone HCl (Oxycodone HCl) 5 Mg Tab 5 MG PO Q4H PRN for Pain for 3 Days, #12 TAB Polyethylene (Miralax) 17 Gm Pow 17 GM PO DAILY for 30 Days Sennosides-Docusate Sodium (Senokot S) 1 Tab Tab 1 TAB PO BID for 30 Days, #60 TAB Continued Medications: Acetaminophen (Tylenol) 500 Mg Tab 2 TAB PO TID PRN for Pain or Fever, TAB Albuterol Sulfate (Proair Respiclick) 108 Mcg/Act Aer 2 PUFFS PO QID PRN for Wheezing Amiodarone Hcl (Cordarone) 200 Mg Tab 200 MG PO DAILY, TAB Aspirin (Aspirin Ec) 81 Mg Tab 81 MG PO DAILY Atorvastatin (Lipitor) 40 Mg Tab 40 MG PO DAILY, TAB Calcitriol (Calcitriol) 0.25 Mcg Cap 0.25 MCG PO 3XWK Cholecalciferol (Vitamin D) 2,000 Unit Cap 2000 UNIT PO DAILY Clopidogrel (Plavix) 75 Mg Tab 75 MG PO DAILY, 0 Refills Colchicine (Colcrys) 0.6 Mg Tab 0.6 MG PO BID PRN for gout Cyanocobalamin (Vitamin B12) 1,000 Mcg Tab 1000 MCG PO DAILY Fluticasone Propionate (Nasal) (Flonase Allergy Relief) 50 Mcg/Act Spr 2 SPRAYS NA DAILY PRN for Nasal Congestion Glimepiride (Glimepiride) 1 Mg Tab 0.5 MG PO QAM, TAB 5 Refills Metoprolol Succ (Toprol Xl) (Toprol-Xl) 25 Mg Tabcr 25 MG PO DAILY, #30 TAB Pantoprazole (Protonix) 40 Mg Tab 40 MG PO QAM, #30 0 Refills Pregabalin (Lyrica) 50 Mg Cap 50 MG PO BID, CAP Discontinued Medications: Polyethylene Glycol 3350 (Miralax) 1 Pow Pow 17 GM PO DAILY PRN for Constipation, #255 GM Discharge Exam Doing well, denies shortness of breath at rest, is weaned down to 1 L nasal cannula. Denies chest pain. No abdominal pain, but has not had a bowel movement. He is making urine and diuresing. Back pain is controlled. Physical Exam General Appearance: WD/WN, no apparent distress Eyes: normal inspection, sclerae normal ENT: hearing grossly normal Neck: trachea midline Respiratory/Chest: no respiratory distress, no accessory muscle use, no crackles Cardiovascular: regular rate, rhythm, + systolic murmur, + pertinent finding Abdomen: normal bowel sounds, non tender, soft Extremities: + swelling (as above) Neurologic/Psychiatric: alert, normal mood/affect Skin: normal color, warm/dry, no rash, + pertinent finding (Ecchymotic area with mild superficial abrasion across the mid back) Review of Systems: Constitutional: No fever, No chills Eyes: No problem reported ENT: No problem reported Respiratory: + dyspnea on exertion Cardiovascular: No chest pain Abdomen: + constipation, No pain, No nausea, No vomiting Musculoskeletal: + problem reported (Back pain) Genitourinary - Male: No problem reported Neurologic: No problem reported Psychiatric: No problem reported Endocrine: No problem reported Hematologic / Lymphatic: No problem reported Integumentary: No problem reported Hospital Course This patient is an 82-year-old male with a history of V. tach cardiac arrest, pacemaker in situ, CAD with ischemic cardiomyopathy, chronic combined systolic and diastolic CHF, PAF, mild aortic stenosis, CVA, CKD stage III, h/o AAA repair , DM 2, HTN, HL, prostate cancer, gout, peripheral neuropathy with frequent falls, seasonal allergies, GERD, AUDREY, and periodic limb movement disorder, who presents to the ER after sustaining a mechanical fall on his back with resulting L3 burst fracture without compromise of the canal. He was also found to have an elevated troponin at 0.5, but denies chest pain or shortness of breath. Fall/L3 traumatic burst fracture-fall is mechanical and likely secondary to deconditioning and peripheral neuropathy. No focal neurological deficits on exam except for chronic decreased sensation in the feet and distal legs bilaterally, no compromise of the central canal on imaging. Pain controlled today -Morphine causes confusion -Continue oxycodone IR and Tylenol as needed pain - avoid NSAIDs due to CKD stage III -Consult orthopedic spine surgeon-appreciate recommendations for back brace which was placed here - weight-bear as tolerated, no surgical intervention necessary -PT/OT consults performed later in the day today- needs rehab placement -Recommended no driving given his significant peripheral neuropathy history- form will be submitted to the [facility] and I advised the patient of this Elevated troponin/CAD/history of V. tach arrest/pacer defibrillator in place/ dyslipidemia-likely myocardial demand ischemia. ECG with long AV delay, paced, and RBBB Serial troponin mildly elevated but trended downward after admission-likely secondary to myocardial demand ischemia from stress of fall with underlying CAD and CKD -Echocardiogram with no new wall motion abnormalities -Consult cardiology appreciated-recommended adding on nitrate and hydralazine for CHF as below -Interrogated pacer-no significant issues -Continue aspirin, Plavix, High intensity statin, Toprol-XL Acute on chronic combined systolic and diastolic CHF/PAF/mild /HTN/h/o AAA repair-remains hypoxic but improved with giving IV Lasix 1, lung exam improved after diuresis. He does have chronic dyspnea on exertion and has never been on oxygen before. Chest x-ray with worsening pulmonary edema prior to administration of Lasix. Blood pressures have been well controlled -Continue Toprol -Is not on an KAREN or ARB presumably due to CKD-Cardiology suggests adding a nitrate and hydralazine for afterload reduction instead-Isordil 10 mg twice daily and hydralazine 10 mg twice daily -Lasix 40 mill grams IV 1 was given with good response -Begin daily Lasix 40 mill grams p.o. in the morning -Follow BMP periodically for renal function -Appreciate cardiology recommendations -Follow I's and O's, low-sodium diet, daily weights -Follow-up with cardiology as an outpatient -No intervention necessary for his aortic stenosis at this point-continued surveillance CKD stage III-creatinine is at baseline right now 1.68, and all other electrolytes are stable -Avoid nephrotoxins -Renally dose medications -Follow BMP periodically History of CVA-noted -Continue aspirin, Plavix, statin AUDREY-declined BiPAP in the past -We will need to continue on nasal cannula 1-2 L O2 continuously through the night even if weaned off during the day Acute hypoxic respiratory failure-probably from some acute on chronic CHF as above, he may have some underlying COPD given history of smoking. -Maintain supplemental O2 to keep pulse ox greater than 92% GERD-continue PPI DMII with peripheral neuropathy- last HgbA1C here is 6.5%, no hyperglycemia, with peripheral neuropathy -restart home glimepiride on dc -continue Lyrica -recommend no driving-form submitted to [facility] Meningioma-incidentally noted on CT of the head. A 2.1 cm extra-axial nodule along the left frontal convexity is typical in appearance for a meningioma. There is no associated mass effect. -Should be followed as an outpatient Complex possibly hemorrhagic renal cyst 11 mm, and bilateral renal cysts-should be followed as an outpatient Stable for discharge to rehab today Total Time Spent: Greater than 30 minutes This includes examination of the patient, discharge planning, medication reconciliation, and communication with other providers. Discharge Instructions Please refer to the electronic Patient Visit Report (Discharge Instructions) for additional information. Follow-Up With PCP within 1 week of discharge With orthopedic spine surgery as needed With cardiology within 2 weeks after discharge Additional Copies To Bebo Mosley D.O.; Sukhdev Qunin M.D.
--- NOTE | 2017-10-18 11:19 | Cardiology Follow-Up ---
Subjective Subjective Date of Service: Oct 18, 2017. Pt evaluation today including: conversation w/ patient, physical exam, chart review, lab review, review of studies, review of inpatient medication list Additional Details: Pt seen and examined, states that he's feeling well over all. Back pain down to 2/10 now. Denies sob, cp, palpitations, lightheadedness or dizziness. Problem List Medical Problems: (1) Fall Status: Acute Review of Systems Constitutional: No fever Respiratory: + dyspnea on exertion, No see HPI, No cough, No sputum, No wheezing, No shortness of breath, No dyspnea at rest, No hemoptysis, No problem reported Cardiac: No see HPI, No chest pain, No orthopnea, No PND, No edema, No claudication, No palpitations, No problem reported Male : + urinary frequency Objective Vital Signs Last Vital Signs Documentation Date Time Temp Pulse Resp B/P (MAP) Pulse Ox O2 Delivery O2 Flow Rate FiO2 10/18/17 08:00 Nasal Cannula 4.0 10/18/17 07:37 94 10/18/17 07:34 36.5 60 14 116/56 (76) Physical Exam: General Appearance: WD/WN, no apparent distress Eyes: bilateral eyes normal inspection, bilateral eyes PERRL, bilateral eyes EOMI ENT: normal ENT inspection, hearing grossly normal, pharynx normal Neck: supple, no adenopathy, thyroid normal, no JVD, no carotid bruits, trachea midline Respiratory/Chest: chest non-tender, lungs clear, no respiratory distress, no accessory muscle use, + decreased breath sounds (b/l bases) Cardiovascular: regular rate, rhythm, no JVD, + systolic murmur, + gallop/S4, + pertinent finding (1+ pitting edema in the legs bilaterally) Abdomen: normal bowel sounds, non tender, soft Extremities: non-tender, normal inspection, no pedal edema, no calf tenderness Neurologic/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 ischemic cardiomyopathy hypoxia ?chronicity likely a component of volume overload diuresed briskly would maintain on lasix 40mg po daily 2. back pain improving for outpatient rehab ok to d/c from cardiac standpoint.
[2017-10-18 15:39] VITALS: BP 109/64; PULSE 60; TEMP 36.4; O2SAT 94
[2017-10-18 15:45] VITALS: O2SAT 94
--- NOTE | 2017-10-18 17:10 | Hospitalist Progress Note ---
Hospitalist Progress Note Date of Service Oct 18, 2017. Subjective Pt evaluation today including: conversation w/ patient, physical exam, lab review, conversation w/ sediment remediation consultant (Cardiology) Patient doing better, is weaned down to 2 L nasal cannula after receiving IV Lasix yesterday. He is making good urine. His pain is controlled in the back. He denies chest pain or shortness of breath. He ambulated with physical therapy today and did have some dyspnea on exertion. He reports a long history of dyspnea on exertion. We discussed that he should not be driving with his significant peripheral neuropathy, and they informed him that I would be submitting my recommendation to the [facility] stating as such. All Other Systems: Reviewed and Negative Objective Vital Signs Date Time Temp Pulse Resp B/P (MAP) Pulse Ox O2 Delivery O2 Flow Rate FiO2 10/18/17 15:45 94 Nasal Cannula 2.0 10/18/17 15:39 36.4 60 20 109/64 (79) 94 Nasal Cannula 2.0 10/18/17 08:00 Nasal Cannula 4.0 10/18/17 07:37 94 Nasal Cannula 2.0 10/18/17 07:34 36.5 60 14 116/56 (76) 94 Nasal Cannula 2.0 10/17/17 23:25 36.6 60 18 143/82 (102) 97 Nasal Cannula 4.0 10/17/17 23:15 Nasal Cannula 4.0 Physical Exam General Appearance: WD/WN, no apparent distress Eyes: normal inspection, sclerae normal ENT: hearing grossly normal Neck: trachea midline Respiratory/Chest: no respiratory distress, no accessory muscle use, + crackles (Mild bibasilar crackles) Cardiovascular: regular rate, rhythm, + systolic murmur, + pertinent finding Abdomen: normal bowel sounds, non tender, soft Extremities: + swelling (as above) Neurologic/Psychiatric: alert, normal mood/affect Skin: normal color, warm/dry, no rash, + pertinent finding (Ecchymotic area with mild superficial abrasion across the mid back) Laboratory Results Last 24 Hours Test 10/17/17 17:08 10/17/17 20:56 10/18/17 06:38 10/18/17 08:20 Bedside Glucose 100 mg/dl 109 mg/dl 100 mg/dl White Blood Count 9.84 K/uL Red Blood Count 4.46 M/uL Hemoglobin 14.6 g/dL Hematocrit 44.4 % Mean Corpuscular Volume 99.6 fL Mean Corpuscular Hemoglobin 32.7 pg Mean Corpuscular Hemoglobin Concent 32.9 g/dl Platelet Count 139 K/uL Mean Platelet Volume 10.7 fL Neutrophils (%) (Auto) 69.0 % Lymphocytes (%) (Auto) 14.6 % Monocytes (%) (Auto) 12.2 % Eosinophils (%) (Auto) 3.7 % Basophils (%) (Auto) 0.2 % Neutrophils # (Auto) 6.79 K/uL Lymphocytes # (Auto) 1.44 K/uL Monocytes # (Auto) 1.20 K/uL Eosinophils # (Auto) 0.36 K/uL Basophils # (Auto) 0.02 K/uL RDW Standard Deviation 53.7 fL RDW Coefficient of Variation 14.8 % Immature Granulocyte % (Auto) 0.3 % Immature Granulocyte # (Auto) 0.03 K/uL Sodium Level 138 mmol/L Potassium Level 4.2 mmol/L Chloride Level 99 mmol/L Carbon Dioxide Level 32 mmol/L Anion Gap 7.0 mmol/L Blood Urea Nitrogen 33 mg/dl Creatinine 1.68 mg/dl Est Creatinine Clear Calc Drug Dose 41.5 ml/min Estimated GFR () 42.9 Estimated GFR (Non- 37.0 BUN/Creatinine Ratio 19.4 Random Glucose 97 mg/dl Calcium Level 9.0 mg/dl Magnesium Level 2.2 mg/dl Test 10/18/17 11:50 Bedside Glucose 113 mg/dl Assessment and Plan This patient is an 82-year-old male with a history of V. tach cardiac arrest, pacemaker in situ, CAD with ischemic cardiomyopathy, chronic combined systolic and diastolic CHF, PAF, mild aortic stenosis, CVA, CKD stage III, h/o AAA repair , DM 2, HTN, HL, prostate cancer, gout, peripheral neuropathy with frequent falls, seasonal allergies, GERD, AUDREY, and periodic limb movement disorder, who presents to the ER after sustaining a mechanical fall on his back with resulting L3 burst fracture without compromise of the canal. He was also found to have an elevated troponin at 0.5, but denies chest pain or shortness of breath. Fall/L3 traumatic burst fracture-fall is mechanical and likely secondary to deconditioning and peripheral neuropathy. No focal neurological deficits on exam except for chronic decreased sensation in the feet and distal legs bilaterally, no compromise of the central canal on imaging. Pain controlled today -Morphine causes confusion -Continue oxycodone IR and Tylenol as needed pain - avoid NSAIDs due to CKD stage III -Consult orthopedic spine surgeon-appreciate recommendations for back brace which was placed here - weight-bear as tolerated, no surgical intervention necessary -PT/OT consults performed later in the day today- needs rehab placement -Recommended no driving given his significant peripheral neuropathy history- form will be submitted to the [employer] and I advised the patient of this Elevated troponin/CAD/history of V. tach arrest/pacer defibrillator in place/ dyslipidemia-likely myocardial demand ischemia. ECG with long AV delay, paced, and RBBB Serial troponin mildly elevated but trended downward after admission-likely secondary to myocardial demand ischemia from stress of fall with underlying CAD and CKD -Echocardiogram with no new wall motion abnormalities -Consult cardiology appreciated-recommended adding on nitrate and hydralazine for CHF as below -Interrogated pacer-no significant issues -Continue aspirin, Plavix, High intensity statin, Toprol-XL Acute on chronic combined systolic and diastolic CHF/PAF/mild /HTN/h/o AAA repair-remains hypoxic but improved with giving IV Lasix 1, lung exam improved after diuresis. He does have chronic dyspnea on exertion and has never been on oxygen before. Chest x-ray with worsening pulmonary edema prior to administration of Lasix. Blood pressures have been well controlled -Continue Toprol -Is not on an KAREN or ARB presumably due to CKD-Cardiology suggests adding a nitrate and hydralazine for afterload reduction instead-Isordil 10 mg twice daily and hydralazine 10 mg twice daily -Lasix 40 mill grams IV 1 was given with good response -Begin daily Lasix 40 mill grams p.o. in the morning -Follow BMP periodically for renal function -Appreciate cardiology recommendations -Follow I's and O's, low-sodium diet, daily weights -Follow-up with cardiology as an outpatient -No intervention necessary for his aortic stenosis at this point-continued surveillance CKD stage III-creatinine is at baseline right now 1.68, and all other electrolytes are stable -Avoid nephrotoxins -Renally dose medications -Follow BMP periodically History of CVA-noted -Continue aspirin, Plavix, statin AUDREY-declined BiPAP in the past -We will need to continue on nasal cannula 2 L O2 continuously through the night even if weaned off during the day Acute hypoxic respiratory failure-probably from some acute on chronic CHF as above, he may have some underlying COPD given history of smoking. -Maintain supplemental O2 to keep pulse ox greater than 92% GERD-continue PPI DMII with peripheral neuropathy- last HgbA1C here is 6.5%, no hyperglycemia, with peripheral neuropathy -restart home glimepiride on dc -continue Lyrica -recommend no driving-form submitted to [facility] Meningioma-incidentally noted on CT of the head. A 2.1 cm extra-axial nodule along the left frontal convexity is typical in appearance for a meningioma. There is no associated mass effect. -Should be followed as an outpatient Complex possibly hemorrhagic renal cyst 11 mm, and bilateral renal cysts-should be followed as an outpatient Stable for discharge to rehab today, however authorization still pending
[2017-10-18] MEDS: TRAMADOL HCL 50 MG TAB PO PRN (18:56)
[2017-10-18 23:21] VITALS: BP 158/82; PULSE 60; TEMP 36.5; O2SAT 94
[2017-10-19] MEDS: ACETAMINOPHEN 500 MG TAB PO SCH (05:45)
[2017-10-19] MEDS: ISOSORBIDE DINITRATE 10 MG TAB PO SCH ×2 (06:38→11:55)
[2017-10-19 07:37] VITALS: BP 90/60; PULSE 60; TEMP 36.5; O2SAT 93
[2017-10-19 08:00] VITALS: O2SAT 91
[2017-10-19] MEDS: INSULIN ASPART 100 UNITS/ML 3 ML PEN SC SCH ×2 (08:46→12:45)
[2017-10-19] MEDS: HEPARIN SOD 5000 UNIT/0.5 ML CARP SQ SCH (08:48)
[2017-10-19 08:51] VITALS: BP 107/65; PULSE 60
[2017-10-19] MEDS: HydrALAZINE 10 MG TAB PO SCH (08:56)
[2017-10-19] MEDS: AMIODARONE 200 MG TAB PO SCH (08:57)
[2017-10-19] MEDS: ASPIRIN 81 MG ECTAB PO SCH (08:58)
[2017-10-19] MEDS ORDERED: FUROSEMIDE 40 MG TAB PO SCH (09:00)
[2017-10-19] MEDS: ATORVASTATIN 40 MG TAB PO SCH (09:01)
[2017-10-19] MEDS: PREGABALIN 50 MG CAP PO SCH (09:01)
[2017-10-19] MEDS: CLOPIDOGREL BISULFATE 75 MG TAB PO SCH (09:02)
[2017-10-19] MEDS: POLYETHYLENE (MIRALAX) 17 GM PACK PO SCH (09:02)
[2017-10-19] MEDS: CALCITRIOL 0.25 MCG CAP PO SCH (09:03)
[2017-10-19] MEDS: PANTOprazole SOD 40 MG TAB PO SCH (09:03)
[2017-10-19] MEDS: DOCUSATE SODIUM/SENNA 50/8.6MG TAB PO SCH (09:04)
[2017-10-19] MEDS: CYANOCOBALAMIN 500 MCG TAB (VIT B-12) PO SCH (09:05)
[2017-10-19] MEDS: METOPROLOL SUCC 25MG EXT REL TAB PO SCH (09:05)
[2017-10-19] MEDS: CHOLECALCIFEROL 1000 INTER.UNIT TAB PO SCH (09:06)
[2017-10-19 09:35] VITALS: O2SAT 93
[2017-10-19 11:28] VITALS: BP 107/65; PULSE 60; TEMP 36.5; O2SAT 93
[2017-10-19 12:00] VITALS: BP 108/68; PULSE 60; TEMP 36.4; O2SAT 95
[2017-10-19] MEDS: TRAMADOL HCL 50 MG TAB PO PRN (12:49)
== END 2017-10-19 13:22 | DRG 551 ==
LOC: EDBD 06:12 → C.EDB 06:12 → C.2T 10:03 → ENRESERV 10:25 → CANRESERV 10:27 → C.MSW 10-16 13:29 → ENRESERV 10-16 14:01 → OBSVTOIN 10-18 17:15
PROVIDERS: ADMIT Family Medicine; ATTEND Family Medicine
DX: S32.031A Stable burst fracture of third lumbar vertebra, initial encounter for closed fracture (principal); J96.01 Acute respiratory failure with hypoxia; I50.43 Acute on chronic combined systolic (congestive) and diastolic (congestive) heart failure; I13.0 Hypertensive heart and chronic kidney disease with heart failure and stage 1 through stage 4 chronic kidney disease, or unspecified chronic kidney disease; I50.42 Chronic combined systolic (congestive) and diastolic (congestive) heart failure; I48.91 Unspecified atrial fibrillation; E11.22 Type 2 diabetes mellitus with diabetic chronic kidney disease; N18.3 Chronic kidney disease, stage 3 (moderate); E78.00 Pure hypercholesterolemia, unspecified; K21.9 Gastro-esophageal reflux disease without esophagitis; G47.33 Obstructive sleep apnea (adult) (pediatric); R29.6 Repeated falls; E11.40 Type 2 diabetes mellitus with diabetic neuropathy, unspecified; I25.5 Ischemic cardiomyopathy; Z66 Do not resuscitate; Z79.02 Long term (current) use of antithrombotics/antiplatelets; Z79.82 Long term (current) use of aspirin; Z79.899 Other long term (current) drug therapy; Z91.81 History of falling; W19.XXXA Unspecified fall, initial encounter

== ENCOUNTER → 2017-10-24 | Outpatient (CLI) | payer OTHER ==
[~2017-10-24] MED LIST changes: +ALBU18002 PO; +AMIO200T4 PO; +APR10 PO; -ASPEC81 PO; +ASPI81TA28 PO; +CALC1CAP36 PO; -CHOL1TAB42 PO; +CHOL200010 PO; -CRD200 PO; +CYAN100020 PO; +FLUT0.15; -FLUT0.15 NAE; -ISOS20TA15 PO; +ISR10 PO; +METO25TA3 PO; +MRLP17 PO; +RXC5 PO; +SENN8.6T7 PO; -SPIR25TA PO; -TPRSR25 PO
[2017-10-24 08:30] LABS: BLOOD UREA NITROGEN 44 mg/dl (7-18); CARBON DIOXIDE 31 mmol/L (21-32); CREATININE 2.08 mg/dl (0.60-1.40); GLUCOSE 102 mg/dl (70-99); SODIUM 139 mmol/L (136-145)
== END | disposition home or self-care (01) ==
LOC: C.LABCC 07:58
PROVIDERS: ATTEND Internal Medicine
DX: I50.9 Heart failure, unspecified (principal)

== ENCOUNTER 2018-04-29 03:23 | Observation (INO) ==
[2018-04-29] MEDS ORDERED: SODIUM CHLORIDE 0.9% 1000ML 1,000 ML IV SCH ×2 (04:30→10:24)
[2018-04-29 04:49] LABS: Hematocrit (blood only) 49.9 % (42-52); Hemoglobin 16.3 g/dL (14.0-18.0); Mean Corpuscular Hgb Conc 32.7 g/dL (32-36); Mean Corpuscular Volume 99.8 fL (80-100); Mean Platelet Volume 11.5 fL (7.4-10.4); Platelet Count 164 K/uL (130-400); RDW Coefficient of Variation 14.2 % (11.5-14.5); RDW Standard Deviation 51.6 fL (36.4-46.3); White Blood Count 15.06 K/uL (4.8-10.8)
[2018-04-29 04:57] LABS: INR 1.1 (0.9-1.1); Prothrombin Time 10.9 Seconds (9.0-12.0)
[2018-04-29 05:00] LABS: Albumin Level 3.5 gm/dl (3.4-5.0); BUN Creatinine Ratio 11.4 (10-20); Calcium 8.8 mg/dl (8.5-10.1); Creatinine Clr Calc Pharmacy 19.4 ml/min; Est GFR (African American) 16.4; Est GFR (Non-African American) 14.2; Magnesium 1.9 mg/dl (1.8-2.4); Potassium 4.9 mmol/L (3.5-5.1)
[2018-04-29 05:03] LABS: Albumin Globulin Ratio 0.9 (0.9-2); Bilirubin,Total 0.9 mg/dl (0.2-1); Total Protein 7.5 gm/dl (6.4-8.2)
[2018-04-29 05:40] LABS: Basophils # (auto) 0.01 K/uL (0-0.2); Basophils % (auto) 0.1 %; Eosinophils # (auto) 0.05 K/uL (0-0.5); Eosinophils % (auto) 0.3 %; Immature Granulocytes # (auto) 0.05 K/uL (0.00-0.02); Immature Granulocytes % (auto) 0.3 %; Lymphocytes # (auto) 0.61 K/uL (1.2-3.4); Lymphocytes % (auto) 4.1 %; Monocytes # (auto) 0.53 K/uL (0.11-0.59); Monocytes % (auto) 3.5 %; Neutrophils # (auto) 13.81 K/uL (1.4-6.5); Neutrophils % (auto) 91.7 %
[2018-04-29] MEDS ORDERED: metroNIDAZOLE 500 MG/100 ML BAG IV STA (06:55)
--- NOTE | 2018-04-29 07:27 | History & Physical Report ---
Date of Service April 29, 2018 Assessment & Plan (1) Diarrhea: Patient had a diarrheal illness for last few days. He is not been around any new sick contacts. C. difficile in the emergency department has been negative. He does have some worsened renal failure likely because of acute tubular necrosis from prerenal renal distress. He is a significant cardiac history which makes hydrating him require increased caution remainder of regular stool cultures are pending Acute kidney injury acute kidney failure on top of chronic kidney disease stage III he will be hydrated gently given his ischemic cardia myopathy (2) Heart disease: Patient has chronic systolic and diastolic heart failure with ischemic cardiomyopathy with previous V. tach cardiac arrest and implantable AICD. She appears euvolemic at this time although with his volume loss and renal distress or holding his diuretics will maintain his amiodarone metoprolol and only hydrate him an additional liter he received 2 L already in the ER (3) Atrial fibrillation: Patient has history of A. fib atrial fibrillation he is previously not been anticoagulated but remains on amiodarone with a pacemaking device he is rate controlled at this time (4) Diabetes: Patient typically takes glimepiride for his diabetes this will be held he will be on diabetic clear liquid diet with insulin sliding scale History of Present Illness Primary Care Provider: David Juan MD This patient is an 82-year-old male with a history of V. tach cardiac arrest, pacemaker in situ, CAD with ischemic cardiomyopathy, chronic combined systolic and diastolic CHF, PAF, mild aortic stenosis, CVA, h/o AAA repair, DM 2, HTN, HL , prostate cancer, gout, peripheral neuropathy with frequent falls, seasonal allergies, GERD, AUDREY, and periodic limb movement disorder, L3 burst fracture without compromise of the canal in the fall of 2018.. He presents with diarrhea and acute kidney injury with history of ckd stage 3 Allergies Allergy/AdvReac Type Severity Reaction Status Date / Time Penicillins Allergy Intermediate HIVES Unverified 04/29/18 04:41 allopurinol Allergy Rash Verified 04/29/18 04:42 amitriptyline [From Elavil] Allergy Rash Verified 04/29/18 04:42 simvastatin [From Zocor] Allergy Rash Verified 04/29/18 04:42 lansoprazole [From Prevacid] AdvReac Diarrhea Verified 04/29/18 04:42 Home Medications Home Medications Medication Instructions Recorded Confirmed Type acetaminophen [Tylenol Extra 1,000 mg PO TID PRN 04/29/18 04/29/18 History Strength] albuterol sulfate [ProAir HFA] 1 - 2 puff INHALATION Q4 PRN 04/29/18 04/29/18 History amiodarone 200 mg PO DAILY 04/29/18 04/29/18 History aspirin 81 mg PO DAILY 04/29/18 04/29/18 History atorvastatin 40 mg PO DAILY 04/29/18 04/29/18 History calcitriol 0.25 mcg PO DAILY 04/29/18 04/29/18 History cholecalciferol (vitamin D3) 1,000 unit PO DAILY 04/29/18 04/29/18 History [Vitamin D3] colchicine [Colcrys] 0.6 mg PO BID PRN 04/29/18 04/29/18 History cyanocobalamin (vitamin B-12) 1,000 mcg PO DAILY 04/29/18 04/29/18 History [Vitamin B-12] fluticasone [Flonase Allergy 2 spray INTRANASAL DAILY PRN 04/29/18 04/29/18 History Relief] furosemide 40 mg PO DAILY 04/29/18 04/29/18 History glimepiride 0.5 mg PO DAILY 04/29/18 04/29/18 History metoprolol succinate 12.5 mg PO DAILY 04/29/18 04/29/18 History pantoprazole 40 mg PO DAILY 04/29/18 04/29/18 History pregabalin [Lyrica] 50 mg PO BID 04/29/18 04/29/18 History ranitidine HCl 300 mg PO HS 04/29/18 04/29/18 History Past Med/Surg History Medical History Prostate cancer (Resolved) Heart disease (Chronic) Pacemaker (Chronic) Atrial fibrillation (Chronic) Hypercholesterolemia (Chronic) Hypertension (Chronic) Diarrhea (Acute) Nausea (Acute) Ventricular tachyarrhythmia CKD (chronic kidney disease) Elevated troponin Lumbar burst fracture Lumbar vertebral fracture Surgical History History of abdominal aortic aneurysm repair (Resolved) Family History Other Family history non-contributory Social History marital status: Current Living Situation: Spouse current occupational status: retired Feels Safe at Home: Yes Safety Concerns: Feels Safe At This Time Smoking Status: Former smoker Tobacco Type: cigarettes Smoking End Date: 2013 Second Hand Exposure: Yes Tobacco Cessation Education Requested by Patient: No Hx Alcohol Use: Yes Alcohol type: wine Alcohol Intake Frequency: a few times a month Hx Substance Use: Yes (see note below.) substance use type: painkillers Substance Use Type Other:: Tylenol; Gout pill. Last Used Substance: Unknown Beliefs That Will Affect Care: None Preferred Language: Korean Communication Ability: Impaired Lapidarist Required: No Review of Systems ROS: well nourished well developed. No double vision blurry vision No problems with speech or swallowing No palpitations, chest pain or pressure No Wheezing or breathing issues Mild diffuse abdominal pain nausea vomiting persistent diarrhea No burning urine urine frequency or changes in color No focal joint pain or muscle pain No skin rashes or oral lesions No unusual bruising or bleeding No focused back pain or numbness or loss of strength No changes in memory or confusion Physical Exam 2 Vital Signs (Past 24 Hours): Last Vital Signs Temp 36.8 C 04/29/18 03:43 Pulse 60 04/29/18 06:22 Resp 18 04/29/18 06:22 BP 101/57 L 04/29/18 06:22 Pulse Ox 100 04/29/18 06:22 The patient appeared well nourished and normally developed. Vital signs as documented. Blood pressure is mildly low Head exam is unremarkable. normocephalic, atraumatic Neck is without jugular venous distension, thyromegaly, or lymphademopathy Lungs are clear to auscultation and percussion. Cardiac exam reveals Rhythm is regular. First and second heart sounds normal. Abdominal exam reveals normal bowel sounds, no masses, no organomegaly soft nontender no guarding Extremities are nonedematous and both pedal pulses are present Neurologic exam is A&Ox3, no focal deficits, strength is equal bilateral Psychologically seems neither anxious or depressed Skin is warm Dry without bruises or lesions _ (1) Diarrhea Diarrhea type: unspecified type Qualified Code(s): R19.7 - Diarrhea, unspecified
--- NOTE | 2018-04-29 08:30 | CT Scan Report ---
ABDOMEN AND PELVIS CT WITHOUT CONTRAST CT DOSE: 997.93 mGy.cm HISTORY: Acute nausea, vomiting and diarrhea n/v/d TECHNIQUE: Multiaxial CT images of the abdomen and pelvis were performed without contrast. A dose lo wering technique was utilized adhering to the principles of ALARA. COMPARISON STUDY: CT abdomen and pelvis 10/15/2017. FINDINGS: Minimal bibasilar opacities suggestive of atelectasis/scarring. Respiratory motion limits dilation of the lung bases. There is no pneumatosis or pneumoperitoneum. Study is mildly motion degraded. Modera te to severe multichamber cardiac enlargement with coronary arterial calcifications. Partially imaged pacer/AICD leads. Lipomatous hypertrophy of interatrial septum. No pericardial effusion. Evaluation of the solid abdominal organs is limited without the use of IV contrast. The limitations o f the study, the gallbladder, liver, spleen, and pancreas appear unremarkable. Mild thickening of the bilateral adrenal glands. Multifocal parenchymal thinning of the kidneys with mild atrophy. Hypodens e bilateral renal lesions are suggestive of probable renal cysts measuring up to 3.3 cm on the left a nd 3.0 cm on the right. No ureteral calculi or obstructive uropathy. The ureters and urinary bladder are within normal limits. Small fat filled left inguinal hernia. Brachytherapy seeds noted about the prostate. Prior graft repair of the abdominal aorta with unchanged fusiform dilation, 3.3 x 3.1 cm. Unchanged p eriaortic stranding. Calcification of the iliac and femoral arteries. No adenopathy. Moderate fluid-f illed distention of the stomach. No small bowel obstruction. Multiple nondilated fluid-filled loops o f small bowel with associated air-fluid levels. Additional minimally dilated loops of small bowel are seen within the right abdomen during up to 3.1 cm. No high-grade small bowel obstruction. Extensive colonic diverticulosis without definite CT evidence of acute diverticulitis. The appendix and termina l ileum appear unremarkable. Soft tissues are within normal limits. Subacute appearing healing fractu re involves the lateral aspect of the left sixth and seventh ribs, new from comparison. Unchanged L3 burst fracture. IMPRESSION: 1. No bowel obstruction or focal bowel wall thickening. 2. Distended fluid-filled stomach with multiple prominent and minimally dilated fluid-filled loops of small bowel throughout the abdomen and pelvis is suggestive of gastroenteritis. 3. Extensive colonic diverticulosis without acute diverticulitis. 4. Normal appendix. 5. Cardiomegaly. 6. Healing subacute nondisplaced fractures of the lateral left sixth and seventh ribs, new from riaz rison. 7. Additional findings as above. Electronically signed by: Reji Mohr M.D. 04/29/2018 8:29 AM
[2018-04-29] MEDS ORDERED: GLUCOSE 40% GEL 15 GM TUBE PO PRN (10:24)
[2018-04-29] MEDS ORDERED: ONDANSETRON INJ 2 MG/ML 2 ML VIAL IV PRN (10:24)
[2018-04-29] MEDS ORDERED: GLUCAGON FOR INJ 1 MG VIAL SQ PRN (10:24)
[2018-04-29] MEDS ORDERED: ALBUTEROL HFA 8 GM INHALER INH PRN (10:24)
[2018-04-29] MEDS ORDERED: GLUCOSE 10 TABS/TUBE PO PRN (10:24)
[2018-04-29] MEDS ORDERED: CARBOHYDRATES FOR HYPOGLYCEMIA PO PRN (10:24)
[2018-04-29] MEDS ORDERED: DEXTROSE 50% 50 ML SYRINGE IV PRN (10:24)
[2018-04-29 12:55] LABS: Appearance Urine Clear (Clear); Bilirubin Urine Negative (Negative); Blood Urine Negative (Negative); Color Urine Dark Yellow; Glucose Urine UA Negative (Negative); Ketones Urine Trace (Negative); Leukocyte Esterase Urine Negative (Negative); Nitrite Urine Negative (Negative); Protein Urine Negative (Negative); Specific Gravity Urine 1.023 (1.000-1.030); Urobilinogen Urine Negative (Negative)
[2018-04-29] MEDS: CALCITRIOL 0.25 MCG CAPSULE PO SCH (13:34)
[2018-04-29] MEDS: ASPIRIN 81 MG ECTAB PO SCH (13:35)
[2018-04-29] MEDS: PANTOprazole 40 MG TAB PO SCH (13:35)
[2018-04-29] MEDS: HEPARIN SOD 5,000 UNIT/0.5 ML VIAL SQ SCH ×2 (13:36→21:07)
[2018-04-29] MEDS: AMIODARONE 200 MG TAB PO SCH (13:36)
[2018-04-29] MEDS: INSULIN ASPART 100 UNITS/ML 3 ML PEN SC SCH ×3 (13:38→21:02)
[2018-04-29] MEDS: PREGABALIN 50 MG CAP PO SCH ×2 (13:41→21:03)
[2018-04-30 06:17] LABS: Hematocrit (blood only) 42.6 % (42-52); Hemoglobin 13.6 g/dL (14.0-18.0); Mean Corpuscular Hgb Conc 31.9 g/dL (32-36); Mean Corpuscular Volume 99.8 fL (80-100); Mean Platelet Volume 10.9 fL (7.4-10.4); Platelet Count 128 K/uL (130-400); RDW Coefficient of Variation 14.7 % (11.5-14.5); RDW Standard Deviation 53.6 fL (36.4-46.3); Red Blood Count 4.27 M/uL (4.7-6.1); White Blood Count 7.46 K/uL (4.8-10.8)
[2018-04-30 06:49] LABS: BUN Creatinine Ratio 17.2 (10-20); Calcium 7.8 mg/dl (8.5-10.1); Creatinine Clr Calc Pharmacy 23.1 ml/min; Est GFR (African American) 21.1; Est GFR (Non-African American) 18.2; Potassium 4.4 mmol/L (3.5-5.1)
[2018-04-30] MEDS: HEPARIN SOD 5,000 UNIT/0.5 ML VIAL SQ SCH (07:52)
[2018-04-30] MEDS: ASPIRIN 81 MG ECTAB PO SCH (07:53)
[2018-04-30] MEDS: PREGABALIN 50 MG CAP PO SCH (07:53)
[2018-04-30] MEDS: PANTOprazole 40 MG TAB PO SCH (07:53)
[2018-04-30] MEDS: CALCITRIOL 0.25 MCG CAPSULE PO SCH (07:54)
[2018-04-30] MEDS: AMIODARONE 200 MG TAB PO SCH (07:54)
[2018-04-30] MEDS: INSULIN ASPART 100 UNITS/ML 3 ML PEN SC SCH ×2 (08:19→12:38)
--- NOTE | 2018-04-30 09:34 | Hospitalist Progress Note ---
Date of Service April 30, 2018 Assessment & Plan (1) Diarrhea: Patient had a diarrheal illness for last few days. He is not been around any new sick contacts. C. difficile in the emergency department has been negative. He does have some worsened renal failure likely because of acute tubular necrosis from prerenal renal distress. He is a significant cardiac history which makes hydrating him require increased caution remainder of regular stool cultures are pending Acute kidney injury acute kidney failure on top of chronic kidney disease stage III he will be hydrated gently given his ischemic cardia myopathy (2) Heart disease: Patient has chronic systolic and diastolic heart failure with ischemic cardiomyopathy with previous V. tach cardiac arrest and implantable AICD. She appears euvolemic at this time although with his volume loss and renal distress or holding his diuretics will maintain his amiodarone metoprolol and only hydrate him an additional liter he received 2 L already in the ER (3) Atrial fibrillation: Patient has history of A. fib atrial fibrillation he is previously not been anticoagulated but remains on amiodarone with a pacemaking device he is rate controlled at this time (4) Diabetes: Patient typically takes glimepiride for his diabetes this will be held he will be on diabetic clear liquid diet with insulin sliding scale Physical Exam 2 Vital Signs (Past 24 Hours): Last Vital Signs Temp 36.9 C 04/30/18 08:00 Pulse 60 04/30/18 08:00 Resp 20 04/30/18 08:00 BP 94/52 L 04/30/18 08:00 Pulse Ox 95 04/30/18 08:00 Results & Data Diagnostic Findings CT abdomen pelvis IMPRESSION: 1. No bowel obstruction or focal bowel wall thickening. 2. Distended fluid-filled stomach with multiple prominent and minimally dilated fluid-filled loops of small bowel throughout the abdomen and pelvis is suggestive of gastroenteritis. 3. Extensive colonic diverticulosis without acute diverticulitis. 4. Normal appendix. 5. Cardiomegaly. 6. Healing subacute nondisplaced fractures of the lateral left sixth and seventh ribs, new from comparison. _ (1) Diarrhea Diarrhea type: unspecified type Qualified Code(s): R19.7 - Diarrhea, unspecified
--- NOTE | 2018-04-30 13:54 | Discharge Summary ---
Date of Service April 30, 2018 Admission HPI Per Admitting Provider This patient is an 82-year-old male with a history of V. tach cardiac arrest, pacemaker in situ, CAD with ischemic cardiomyopathy, chronic combined systolic and diastolic CHF, PAF, mild aortic stenosis, CVA, h/o AAA repair, DM 2, HTN, HL , prostate cancer, gout, peripheral neuropathy with frequent falls, seasonal allergies, GERD, AUDREY, and periodic limb movement disorder, L3 burst fracture without compromise of the canal in the fall of 2018.. He presents with diarrhea and acute kidney injury with history of ckd stage 3 Principal Diagnosis dehydration, gastroenteritis(likely viral) Discharge Exam Constitutional well developed and average body habitus Eyes no conjunctival abnormality and no scleral abnormality Neck normal visual inspection and trachea midline Respiratory normal respiratory effort; no respiratory distress Auscultation: lungs clear to auscultation bilaterally Cardiovascular RRR, no murmur, no edema Gastrointestinal (Abdomen) normal bowel sounds, soft, nontender, no hepatosplenomegaly Musculoskeletal no cyanosis or clubbing, extremities motor strength 5/5 Discharge Data Allergies Allergy/AdvReac Type Severity Reaction Status Date / Time Penicillins Allergy Intermediate HIVES Unverified 04/29/18 04:41 allopurinol Allergy Rash Verified 04/29/18 04:42 amitriptyline [From Elavil] Allergy Rash Verified 04/29/18 04:42 simvastatin [From Zocor] Allergy Rash Verified 04/29/18 04:42 lansoprazole [From Prevacid] AdvReac Diarrhea Verified 04/29/18 04:42 Consultations 04/29/18 07:30 ED Decision to Admit Stat Ordered Studies 04/29/18 05:46 CT abd pelvis wo con Urgent Hospital Course (1) Diarrhea: Patient had a diarrheal illness for last few days. He is not been around any new sick contacts. C. difficile in the emergency department has been negative. His renal function has improved, diarrhea ceased and he is eating normally He is a significant cardiac history which made hydrating him require increased caution. Acute kidney injury acute kidney failure on top of chronic kidney disease stage III , resolving (2) Heart disease: Patient has chronic systolic and diastolic heart failure with ischemic cardiomyopathy with previous V. tach cardiac arrest and implantable AICD, maintain his amiodarone metoprolol Is euvolemic without signs of heart failure at time of discharge (3) Atrial fibrillation: Patient has history of A. fib atrial fibrillation he is previously not been anticoagulated but remains on amiodarone with a pacemaking device he is rate controlled at this time (4) Diabetes: Patient typically takes glimepiride for his diabetes this will be resumed at time of discharge Total Time Total Time Spent Total Time Spent (In Minutes): greater than 30 minutes were required to prepare discharge Discharge Plan Discharge Items Patient Disposition: Home - Self-Care Reason For Visit: DIARRHEAL ILLNESS Discharge Diagnosis: viral gastroenteritis,dehydration Discharge Goals: Decrease discomfort and Diagnostic testing Activity: Resume your previous activity Non-emergency contact: Primary Care Provider Call non-emergency contact if: you have any medication questions Diet: Carb Consistent or DM2 and Low Potassium (2gm) Addtl Provider Instructions: Please follow up with your primary care doctor this week Prescriptions: Continue atorvastatin 40 mg tablet 40 mg PO DAILY RF: 0 amiodarone 200 mg tablet 200 mg PO DAILY RF: 0 cyanocobalamin (vitamin B-12) [Vitamin B-12] 1,000 mcg Tablet 1,000 mcg PO DAILY RF: 0 aspirin 81 mg Tablet,Delayed Release (Dr/Ec) 81 mg PO DAILY RF: 0 calcitriol 0.25 mcg capsule 0.25 mcg PO DAILY RF: 0 ranitidine HCl 300 mg tablet 300 mg PO HS RF: 0 acetaminophen [Tylenol Extra Strength] 500 mg Tablet 1,000 mg PO TID PRN (Reason: Unknown) RF: 0 glimepiride 1 mg tablet 0.5 mg PO DAILY RF: 0 furosemide 80 mg tablet 40 mg PO DAILY RF: 0 pantoprazole 40 mg tablet,delayed release (DR/EC) 40 mg PO DAILY RF: 0 metoprolol succinate 25 mg tablet extended release 24 hr 12.5 mg PO DAILY RF: 0 albuterol sulfate 90 mcg/actuation HFA aerosol inhaler 1 - 2 puff Inhalation Q4 PRN (Reason: Wheezing) RF: 0 colchicine [Colcrys] 0.6 mg Tablet 0.6 mg PO BID PRN (Reason: Unknown) RF: 0 fluticasone [Flonase Allergy Relief] 50 mcg/actuation [place],Suspension 2 spray INTRANASAL DAILY PRN (Reason: Unknown) RF: 0 cholecalciferol (vitamin D3) [Vitamin D3] 1,000 unit Capsule 1,000 unit PO DAILY RF: 0 pregabalin 50 mg capsule 50 mg PO BID RF: 0 Stand-Alone Forms: [facility] Discharge Orders: Discharge Order (Routine); Ordered 04/30/18 Ordered By: Darron Glaser Admission Data Admit Date/Time: 04/29/18 07:33 Attending Provider: Darron Glaser Admit Provider: Darron Glaser Primary Care Provider: David Juan Other Providers: Darron Glaser Service: Medical Other Interventions: Discharge Summary Assessment (RN) Last Done: 04/30/18 13:35
[2018-05-01 06:32] LABS: Estimated Average Glucose 160 mg/dl; Hemoglobin A1C 7.2 % (4.5-5.6)
--- NOTE | 2018-05-01 08:12 | Emergency Department Note ---
Entered by Amna Crowder acting as a scribe for History of Present Illness General Chief complaint: Illness Time Seen by Provider: 04/29/18 03:39 Source: patient History of Present Illness Onset (ago): day(s) (last night) Location: upper extremity and lower extremity Pain Consistency: + other (worsening) Quality: + other (illness) Associated symptoms: + denies other symptoms (abnormal eating), + fever/chills ( Positive chills. Negative fever. ), + nausea/vomiting (vomiting), + weakness and + other (diarrhea, abdominal pain) The patient is an 82 year old female who presents to the Emergency Room with complaints of worsening illness starting last night. The patient states that last night he had an episode of diarrhea and then had another episode half an hour ago. He reports that with this episode this morning he had vomiting. He states that he had 2 episodes this morning and 2 yesterday of vomiting. He states that the episode he had this morning made him so weak that he fell to the floor and was unable to get up because he was so weak. The patient complains of abdominal pain when vomiting and chills. The patient denies abnormal eating, being around others who are sick, and fever. He notes that he takes a lot of medications and is unsure if he is on any antibiotics. Home Medications Home Medications Medication Instructions Recorded Confirmed Type acetaminophen [Tylenol Extra 1,000 mg PO TID PRN 04/29/18 04/29/18 History Strength] albuterol sulfate 1 - 2 puff INHALATION Q4 PRN 04/29/18 04/29/18 History amiodarone 200 mg PO DAILY 04/29/18 04/29/18 History aspirin 81 mg PO DAILY 04/29/18 04/29/18 History atorvastatin 40 mg PO DAILY 04/29/18 04/29/18 History calcitriol 0.25 mcg PO DAILY 04/29/18 04/29/18 History cholecalciferol (vitamin D3) 1,000 unit PO DAILY 04/29/18 04/29/18 History [Vitamin D3] colchicine [Colcrys] 0.6 mg PO BID PRN 04/29/18 04/29/18 History cyanocobalamin (vitamin B-12) 1,000 mcg PO DAILY 04/29/18 04/29/18 History [Vitamin B-12] fluticasone [Flonase Allergy 2 spray INTRANASAL DAILY PRN 04/29/18 04/29/18 History Relief] furosemide 40 mg PO DAILY 04/29/18 04/29/18 History glimepiride 0.5 mg PO DAILY 04/29/18 04/29/18 History metoprolol succinate 12.5 mg PO DAILY 04/29/18 04/29/18 History pantoprazole 40 mg PO DAILY 04/29/18 04/29/18 History pregabalin 50 mg PO BID 04/29/18 04/29/18 History ranitidine HCl 300 mg PO HS 04/29/18 04/29/18 History Allergies Allergy/AdvReac Type Severity Reaction Status Date / Time Penicillins Allergy Intermediate HIVES Unverified 04/29/18 04:41 allopurinol Allergy Rash Verified 04/29/18 04:42 amitriptyline [From Elavil] Allergy Rash Verified 04/29/18 04:42 simvastatin [From Zocor] Allergy Rash Verified 04/29/18 04:42 lansoprazole [From Prevacid] AdvReac Diarrhea Verified 04/29/18 04:42 Past Med/Surg History Medical History Prostate cancer (Resolved) Heart disease (Chronic) Pacemaker (Chronic) Atrial fibrillation (Chronic) Hypercholesterolemia (Chronic) Hypertension (Chronic) Diarrhea (Acute) Nausea (Acute) Ventricular tachyarrhythmia CKD (chronic kidney disease) Elevated troponin Lumbar burst fracture Lumbar vertebral fracture Surgical History History of abdominal aortic aneurysm repair (Resolved) Family History Other Family history non-contributory Social History marital status: Current Living Situation: Spouse current occupational status: retired Feels Safe at Home: Yes Safety Concerns: Feels Safe At This Time Smoking Status: Former smoker Tobacco Type: cigarettes Smoking End Date: 2013 Second Hand Exposure: Yes Tobacco Cessation Education Requested by Patient: No Hx Alcohol Use: Yes Alcohol type: wine Alcohol Intake Frequency: a few times a month Hx Substance Use: Yes (see note below.) substance use type: painkillers Substance Use Type Other:: Tylenol; Gout pill. Last Used Substance: Unknown Beliefs That Will Affect Care: None Preferred Language: Chadian Review of Systems See HPI for pertinent positives & negatives. and A total of 10 systems reviewed and were otherwise negative Physical Exam Vital Signs Vital Signs - 24 hr 04/30/18 13:35 Temperature 36.9 C Pulse Rate [Right Brachial] 60 Respiratory Rate 20 Blood Pressure [Right Arm] 94/52 L Pulse Oximetry 95 GENERAL: alert, ill appearing, well nourished, no distress, non-toxic EYE EXAM: normal conjunctiva, PERRL and EOM's grossly intact OROPHARYNX: no exudate, no erythema, lips, buccal mucosa, and tongue normal and mucous membranes are moist NECK: supple, no nuchal rigidity, no adenopathy, non-tender LUNGS: Clear to auscultation. Normal chest wall mechanics HEART: no murmurs, S1 normal and S2 normal ABDOMEN: abdomen soft, mild abdominal distention, generalized abdominal tenderness, normo-active bowel sounds, no masses, no rebound or guarding. BACK: Back is symmetrical on inspection and there is no deformity, no midline tenderness, no CVA tenderness. SKIN: no rashes and no bruising UPPER EXTREMITIES: upper extremities are grossly normal. FROM, nml pulses b/l. LOWER EXTREMITIES: No pitting edema. FROM, nml pulses b/l. NEURO EXAM: Normal sensorium, cranial nerves II-XII [grossly] intact, normal speech, no [gross] weakness of arms, no [gross] weakness of legs. [No drift. Finger to nose intact. Gross sensation intact.] Course 0356: Past medical records reviewed. The patient was evaluated in room B2, and a complete history and physical examination were performed. 0646: I reevaluated the patient and updated him on his test results. I discussed the treamtent plan with him. He verbally agrees and understands. 0733: I reviewed the patient's case with Dr. Alyssa ZEPEDA Hosptialist. He will evaluate the patient for further management. Consultations Consultation #1: I reviewed the patient's case with Dr. Alyssa ZEPEDA Hosptialist. He will evaluate the patient for further management. Time: 07:33 Administered Medications Discontinued Medications Amiodarone HCl (Cordarone) 200 mg PO DAILY ELY Stop: 05/29/18 10:23 Last Admin: 04/30/18 07:54 Dose: 200 mg Admin: 04/29/18 13:36 Dose: 200 mg Aspirin (Ecotrin Ectab) 81 mg PO DAILY ELY Stop: 05/29/18 10:23 Last Admin: 04/30/18 07:53 Dose: 81 mg Admin: 04/29/18 13:35 Dose: 81 mg Calcitriol (Racaltrol) 0.25 mcg PO DAILY ELY Stop: 05/29/18 10:23 Last Admin: 04/30/18 07:54 Dose: 0.25 mcg Admin: 04/29/18 13:34 Dose: 0.25 mcg Heparin Sodium (Porcine) (Heparin Sodium (Porcine)) 5,000 units SQ Q12 ELY Stop: 05/29/18 10:23 Last Admin: 04/30/18 07:52 Dose: Not Given Admin: 04/29/18 21:07 Dose: Not Given Admin: 04/29/18 13:36 Dose: Not Given Sodium Chloride (Nss 1000ml) 1,000 mls @ 125 mls/hr IV .Q8H ELY Stop: 05/29/18 04:29 Last Infusion: 04/29/18 11:11 Dose: 0 mls/hr Infusion: 04/29/18 09:00 Dose: 0 mls/hr Admin: 04/29/18 04:45 Dose: 125 mls/hr Metronidazole (Flagyl) 500 mg in 100 mls @ 100 mls/hr IV NOW STA Stop: 04/29/18 07:54 Last Infusion: 04/29/18 11:11 Dose: 0 mls/hr Admin: 04/29/18 08:59 Dose: 100 mls/hr Sodium Chloride (Nss 1000ml) 1,000 mls @ 80 mls/hr IV .[id number] [facility] Stop: 04/29/18 22:53 Last Infusion: 04/30/18 07:47 Dose: 0 mls/hr Admin: 04/29/18 11:00 Dose: 80 mls/hr Insulin Aspart (Novolog Flexpen) 0 units SC ACHS ELY Stop: 05/29/18 11:29 Last Admin: 04/30/18 12:38 Dose: Not Given Admin: 04/30/18 08:19 Dose: Not Given Admin: 04/29/18 21:02 Dose: Not Given Admin: 04/29/18 18:24 Dose: Not Given Admin: 04/29/18 13:38 Dose: Not Given Ondansetron HCl (Zofran) 4 mg IV Q6H PRN PRN Reason: Nausea Stop: 05/29/18 10:23 Last Admin: 04/29/18 16:45 Dose: 4 mg Pantoprazole Sodium (Protonix) 40 mg PO DAILY ELY Stop: 05/29/18 10:23 Last Admin: 04/30/18 07:53 Dose: 40 mg Admin: 04/29/18 13:35 Dose: 40 mg Pregabalin (Lyrica) 50 mg PO BID ELY Stop: 05/29/18 10:23 Last Admin: 04/30/18 07:53 Dose: 50 mg Admin: 04/29/18 21:03 Dose: 50 mg Admin: 04/29/18 13:41 Dose: 50 mg Ranitidine HCl (Zantac) 150 mg PO HS ELY Stop: 05/29/18 20:59 Last Admin: 04/29/18 21:03 Dose: 150 mg Medical Decision Making Differential Diagnosis Differential diagnosis: Etiologies such as gastroenteritis, food borne illness, infections, appendicitis , diverticulitis, inflammatory bowel disease, obstruction, GI bleed, biliary pathology, cardiac process, intracranial process, as well as others were entertained. Medical Records Attestation: I reviewed the patient's medical records. Home Medications Current Medication List: was personally reviewed by me Laboratory Data Attestation: I reviewed the patient's lab results. Result diagrams: 04/30/18 05:42 04/30/18 05:42 Lab Results 04/29/18 04/29/18 04/29/18 Range/Units 03:30 03:30 03:30 WBC 15.06 H (4.8-10.8) K/uL RBC 5.00 (4.7-6.1) M/uL Hgb 16.3 (14.0-18.0) g/dL Hct 49.9 (42-52) % MCV 99.8 (80-100) fL MCH 32.6 (25-34) pg MCHC 32.7 (32-36) g/dL RDW Std Deviation 51.6 H (36.4-46.3) fL RDW Coeff of [place]hawn 14.2 (11.5-14.5) % Plt Count 164 (130-400) K/uL MPV 11.5 H (7.4-10.4) fL Immature Gran % (Auto) 0.3 % Neut % (Auto) 91.7 % Lymph % (Auto) 4.1 % [place] % (Auto) 3.5 % Eos % (Auto) 0.3 % Baso % (Auto) 0.1 % Immature Gran # (Auto) 0.05 H (0.00-0.02) K/uL Neut # (Auto) 13.81 H (1.4-6.5) K/uL Lymph # (Auto) 0.61 L (1.2-3.4) K/uL [place] # (Auto) 0.53 (0.11-0.59) K/uL Eos # (Auto) 0.05 (0-0.5) K/uL Baso # (Auto) 0.01 (0-0.2) K/uL PT 10.9 (9.0-12.0) Seconds INR 1.1 (0.9-1.1) Sodium 140 (136-145) mmol/L Potassium 4.9 (3.5-5.1) mmol/L Chloride 103 (98-107) mmol/L Carbon Dioxide 26 (21-32) mmol/L Anion Gap 11.0 (3-11) BUN 42 H (7-18) mg/dl Creatinine 3.72 H (0.6-1.4) mg/dl Est Cr Clr Drug Dosing 19.4 ml/min Est GFR ( Amer) 16.4 Est GFR (Non-Af Amer) 14.2 BUN/Creatinine Ratio 11.4 (10-20) Glucose 208 H (70-99) mg/dl POC Glucose (70-99) Estimat Average Glucose mg/dl Hemoglobin A1c (4.5-5.6) % POC Lactic Acid Bam (0.90-1.70) mmol/L Calcium 8.8 (8.5-10.1) mg/dl Magnesium 1.9 (1.8-2.4) mg/dl Total Bilirubin 0.9 (0.2-1) mg/dl AST 22 (15-37) U/L ALT 25 (12-78) U/L Alkaline Phosphatase 130 H (45-117) U/L Total Protein 7.5 (6.4-8.2) gm/dl Albumin 3.5 (3.4-5.0) gm/dl Globulin 4.0 (2.5-4.0) gm/dl Albumin/Globulin Ratio 0.9 (0.9-2) Lipase 106 (73-393) U/L Specimen Hemolysis Urine Color Urine Appearance (Clear) Urine pH (4.5-7.5) Ur Specific [place] (1.000-1.030) Urine Protein (Negative) Urine Glucose (UA) (Negative) Urine Ketones (Negative) Urine Blood (Negative) Urine Nitrite (Negative) Urine Bilirubin (Negative) Urine Urobilinogen (Negative) Ur Leukocyte Esterase (Negative) Stl C. diff Tox B Gene (Neg) Influenza Type A Ag (Neg) Influenza Type B Ag (Neg) 04/29/18 04/29/18 04/29/18 Range/Units 04:38 05:10 12:45 WBC (4.8-10.8) K/uL RBC (4.7-6.1) M/uL Hgb (14.0-18.0) g/dL Hct (42-52) % MCV (80-100) fL MCH (25-34) pg MCHC (32-36) g/dL RDW Std Deviation (36.4-46.3) fL RDW Coeff of Keyshawn (11.5-14.5) % Plt Count (130-400) K/uL MPV (7.4-10.4) fL Immature Gran % (Auto) % Neut % (Auto) % Lymph % (Auto) % [place] % (Auto) % Eos % (Auto) % Baso % (Auto) % Immature Gran # (Auto) (0.00-0.02) K/uL Neut # (Auto) (1.4-6.5) K/uL Lymph # (Auto) (1.2-3.4) K/uL [place] # (Auto) (0.11-0.59) K/uL Eos # (Auto) (0-0.5) K/uL Baso # (Auto) (0-0.2) K/uL PT (9.0-12.0) Seconds INR (0.9-1.1) Sodium (136-145) mmol/L Potassium (3.5-5.1) mmol/L Chloride (98-107) mmol/L Carbon Dioxide (21-32) mmol/L Anion Gap (3-11) BUN (7-18) mg/dl Creatinine (0.6-1.4) mg/dl Est Cr Clr Drug Dosing ml/min Est GFR ( Amer) Est GFR (Non-Af Amer) BUN/Creatinine Ratio (10-20) Glucose (70-99) mg/dl POC Glucose (70-99) Estimat Average Glucose mg/dl Hemoglobin A1c (4.5-5.6) % POC Lactic Acid Bam 2.62 H (0.90-1.70) mmol/L Calcium (8.5-10.1) mg/dl Magnesium (1.8-2.4) mg/dl Total Bilirubin (0.2-1) mg/dl AST (15-37) U/L ALT (12-78) U/L Alkaline Phosphatase (45-117) U/L Total Protein (6.4-8.2) gm/dl Albumin (3.4-5.0) gm/dl Globulin (2.5-4.0) gm/dl Albumin/Globulin Ratio (0.9-2) Lipase (73-393) U/L Specimen Hemolysis Urine Color Dark Yellow Urine Appearance Clear (Clear) Urine pH 5.0 (4.5-7.5) Ur Specific [place] 1.023 (1.000-1.030) Urine Protein Negative (Negative) Urine Glucose (UA) Negative (Negative) Urine Ketones Trace H (Negative) Urine Blood Negative (Negative) Urine Nitrite Negative (Negative) Urine Bilirubin Negative (Negative) Urine Urobilinogen Negative (Negative) Ur Leukocyte Esterase Negative (Negative) Stl C. diff Tox B Gene Neg C.diff Toxin B (Neg) Influenza Type A Ag (Neg) Influenza Type B Ag (Neg) 04/29/18 04/29/18 04/29/18 Range/Units 13:23 17:00 17:02 WBC (4.8-10.8) K/uL RBC (4.7-6.1) M/uL Hgb (14.0-18.0) g/dL Hct (42-52) % MCV (80-100) fL MCH (25-34) pg MCHC (32-36) g/dL RDW Std Deviation (36.4-46.3) fL RDW Coeff of Keyshawn (11.5-14.5) % Plt Count (130-400) K/uL MPV (7.4-10.4) fL Immature Gran % (Auto) % Neut % (Auto) % Lymph % (Auto) % [place] % (Auto) % Eos % (Auto) % Baso % (Auto) % Immature Gran # (Auto) (0.00-0.02) K/uL Neut # (Auto) (1.4-6.5) K/uL Lymph # (Auto) (1.2-3.4) K/uL [place] # (Auto) (0.11-0.59) K/uL Eos # (Auto) (0-0.5) K/uL Baso # (Auto) (0-0.2) K/uL PT (9.0-12.0) Seconds INR (0.9-1.1) Sodium (136-145) mmol/L Potassium (3.5-5.1) mmol/L Chloride (98-107) mmol/L Carbon Dioxide (21-32) mmol/L Anion Gap (3-11) BUN (7-18) mg/dl Creatinine (0.6-1.4) mg/dl Est Cr Clr Drug Dosing ml/min Est GFR ( Amer) Est GFR (Non-Af Amer) BUN/Creatinine Ratio (10-20) Glucose (70-99) mg/dl POC Glucose 116 H 97 (70-99) Estimat Average Glucose mg/dl Hemoglobin A1c (4.5-5.6) % POC Lactic Acid Bam (0.90-1.70) mmol/L Calcium (8.5-10.1) mg/dl Magnesium (1.8-2.4) mg/dl Total Bilirubin (0.2-1) mg/dl AST (15-37) U/L ALT (12-78) U/L Alkaline Phosphatase (45-117) U/L Total Protein (6.4-8.2) gm/dl Albumin (3.4-5.0) gm/dl Globulin (2.5-4.0) gm/dl Albumin/Globulin Ratio (0.9-2) Lipase (73-393) U/L Specimen Hemolysis Urine Color Urine Appearance (Clear) Urine pH (4.5-7.5) Ur Specific [place] (1.000-1.030) Urine Protein (Negative) Urine Glucose (UA) (Negative) Urine Ketones (Negative) Urine Blood (Negative) Urine Nitrite (Negative) Urine Bilirubin (Negative) Urine Urobilinogen (Negative) Ur Leukocyte Esterase (Negative) Stl C. diff Tox B Gene (Neg) Influenza Type A Ag Neg for Influ A (Neg) Influenza Type B Ag Neg for Influ B (Neg) 04/29/18 04/30/18 04/30/18 Range/Units 20:47 05:42 05:42 WBC 7.46 (4.8-10.8) K/uL RBC 4.27 L (4.7-6.1) M/uL Hgb 13.6 L (14.0-18.0) g/dL Hct 42.6 (42-52) % MCV 99.8 (80-100) fL MCH 31.9 (25-34) pg MCHC 31.9 L (32-36) g/dL RDW Std Deviation 53.6 H (36.4-46.3) fL RDW Coeff of Keyshawn 14.7 H (11.5-14.5) % Plt Count 128 L (130-400) K/uL MPV 10.9 H (7.4-10.4) fL Immature Gran % (Auto) % Neut % (Auto) % Lymph % (Auto) % [place] % (Auto) % Eos % (Auto) % Baso % (Auto) % Immature Gran # (Auto) (0.00-0.02) K/uL Neut # (Auto) (1.4-6.5) K/uL Lymph # (Auto) (1.2-3.4) K/uL [place] # (Auto) (0.11-0.59) K/uL Eos # (Auto) (0-0.5) K/uL Baso # (Auto) (0-0.2) K/uL PT (9.0-12.0) Seconds INR (0.9-1.1) Sodium 141 (136-145) mmol/L Potassium 4.4 (3.5-5.1) mmol/L Chloride 110 H (98-107) mmol/L Carbon Dioxide 26 (21-32) mmol/L Anion Gap 5.0 (3-11) BUN 52 H (7-18) mg/dl Creatinine 3.02 H D (0.6-1.4) mg/dl Est Cr Clr Drug Dosing 23.1 ml/min Est GFR ( Amer) 21.1 Est GFR (Non-Af Amer) 18.2 BUN/Creatinine Ratio 17.2 (10-20) Glucose 80 (70-99) mg/dl POC Glucose 95 (70-99) Estimat Average Glucose mg/dl Hemoglobin A1c (4.5-5.6) % POC Lactic Acid Bam (0.90-1.70) mmol/L Calcium 7.8 L (8.5-10.1) mg/dl Magnesium (1.8-2.4) mg/dl Total Bilirubin (0.2-1) mg/dl AST (15-37) U/L ALT (12-78) U/L Alkaline Phosphatase (45-117) U/L Total Protein (6.4-8.2) gm/dl Albumin (3.4-5.0) gm/dl Globulin (2.5-4.0) gm/dl Albumin/Globulin Ratio (0.9-2) Lipase (73-393) U/L Specimen Hemolysis Urine Color Urine Appearance (Clear) Urine pH (4.5-7.5) Ur Specific [place] (1.000-1.030) Urine Protein (Negative) Urine Glucose (UA) (Negative) Urine Ketones (Negative) Urine Blood (Negative) Urine Nitrite (Negative) Urine Bilirubin (Negative) Urine Urobilinogen (Negative) Ur Leukocyte Esterase (Negative) Stl C. diff Tox B Gene (Neg) Influenza Type A Ag (Neg) Influenza Type B Ag (Neg) 04/30/18 04/30/18 04/30/18 Range/Units 05:42 08:04 12:08 WBC (4.8-10.8) K/uL RBC (4.7-6.1) M/uL Hgb (14.0-18.0) g/dL Hct (42-52) % MCV (80-100) fL MCH (25-34) pg MCHC (32-36) g/dL RDW Std Deviation (36.4-46.3) fL RDW Coeff of [place]hawn (11.5-14.5) % Plt Count (130-400) K/uL MPV (7.4-10.4) fL Immature Gran % (Auto) % Neut % (Auto) % Lymph % (Auto) % [place] % (Auto) % Eos % (Auto) % Baso % (Auto) % Immature Gran # (Auto) (0.00-0.02) K/uL Neut # (Auto) (1.4-6.5) K/uL Lymph # (Auto) (1.2-3.4) K/uL [place] # (Auto) (0.11-0.59) K/uL Eos # (Auto) (0-0.5) K/uL Baso # (Auto) (0-0.2) K/uL PT (9.0-12.0) Seconds INR (0.9-1.1) Sodium (136-145) mmol/L Potassium (3.5-5.1) mmol/L Chloride (98-107) mmol/L Carbon Dioxide (21-32) mmol/L Anion Gap (3-11) BUN (7-18) mg/dl Creatinine (0.6-1.4) mg/dl Est Cr Clr Drug Dosing ml/min Est GFR ( Amer) Est GFR (Non-Af Amer) BUN/Creatinine Ratio (10-20) Glucose (70-99) mg/dl POC Glucose 71 74 (70-99) Estimat Average Glucose 160 mg/dl Hemoglobin A1c 7.2 H (4.5-5.6) % POC Lactic Acid Bam (0.90-1.70) mmol/L Calcium (8.5-10.1) mg/dl Magnesium (1.8-2.4) mg/dl Total Bilirubin (0.2-1) mg/dl AST (15-37) U/L ALT (12-78) U/L Alkaline Phosphatase (45-117) U/L Total Protein (6.4-8.2) gm/dl Albumin (3.4-5.0) gm/dl Globulin (2.5-4.0) gm/dl Albumin/Globulin Ratio (0.9-2) Lipase (73-393) U/L Specimen Hemolysis Urine Color Urine Appearance (Clear) Urine pH (4.5-7.5) Ur Specific [place] (1.000-1.030) Urine Protein (Negative) Urine Glucose (UA) (Negative) Urine Ketones (Negative) Urine Blood (Negative) Urine Nitrite (Negative) Urine Bilirubin (Negative) Urine Urobilinogen (Negative) Ur Leukocyte Esterase (Negative) Stl C. diff Tox B Gene (Neg) Influenza Type A Ag (Neg) Influenza Type B Ag (Neg) Imaging Data Radiologist's Impression: Radiology results as stated below per my review and the radiologist's interpretation: CT ABDOMEN & PELVIS Without Contrast: Distal colonic diverticulosis. No acute or active colitis. No appendicitis or bowel obstruction. No free air, free fluid. No obstructive uropathy. Bilateral small renal cysts. Radiologist: Edi Brody MD Study ready at 06:15 and initial results transmitted at 06:31. ECG Data Attestation: I personally reviewed and interpreted this ECG as follows: Indication: abdominal pain Rate (beats per minute): 60 Rhythm: other (paced rhythm) Findings: + Q waves (lead 2, 3, and aVF) and + RBBB; no ST depression, no ST elevation and no acute ischemic change Blood Pressure Blood Pressure Findings: Low blood pressure Blood Pressure Disposition: further management by hospitalist MDM Narrative Patient here ill-appearing on presentation, however hemodynamically stable. Patient with multiple episodes of diarrhea at home and had several while here in the department. Patient started on IV fluids as a precaution for rehydration. Patient found to have acute exacerbation of his chronic kidney disease, presumed to be due to his illness and dehydration. Patient's stool sent for culture including C. difficile. Patient afebrile here, however did have an elevated white blood cell count. Possible patient's leukocytosis secondary to stress demargination from illness. Patient aware of all results. Case discussed with hospitalist for additional evaluation and management. Patient's lactic acid only mildly elevated. I do not suspect mesenteric ischemia, perforation, GI bleed, bacteremia/sepsis. No other evidence of acute pathology on CT abdomen and pelvis. Impression & Plan Diarrhea, Acute kidney failure, Vomiting, Dehydration Discharge Plan Visit Data *Final* Discharge Date/Time: 04/29/18 09:44 Chief Complaint: Illness ED Provider: Estefania Velarde Discharge Problem: Diarrhea, Acute kidney failure, Vomiting, Dehydration Patient Disposition: Admitted As Inpatient Discharge Instructions Interventions: ED Discharge Assessment Last Done: 04/29/18 09:44 The scribe's documentation has been prepared under my direction and personally reviewed by me in its entirety. I confirm that the note above accurately reflects all work, treatment, procedures, and medical decision making performed by me.
== END 2018-04-30 14:00 | disposition home or self-care (01) ==
LOC: ED 03:23 → 4W 03:23